=== PATIENT | male | born 1945 | race Caucasian/White ===

== ENCOUNTER 2019-06-16 18:52 | Emergency (ER) | payer MEDICARE, OTHER, SELFPAY ==
[2019-06-16 19:36] VITALS: BP 171/105; PULSE 75; RESP 16; TEMP 36.9; O2SAT 96; BMI 29.8
[2019-06-16 19:57] LABS: Basophils % 0.3 %; Eosinophils # 0.1 10^3/uL (0.0-0.8); Eosinophils % 1.3 %; Hematocrit 41.6 % (42.0-52.0); Hemoglobin 13.5 g/dL (11.7-16.6); Lymphocytes # 1.6 10^3/uL (0.8-4.8); Lymphocytes % 23.9 %; Mean Corpuscular HGB Conc 32.5 g/dL (30.0-36.0); Mean Corpuscular Hemoglobin 28.5 pg (28.0-34.0); Mean Corpuscular Volume 87.9 fL (80-94); Monocytes # 0.7 10^3/uL (0.2-0.9); Monocytes % 10.1 %; Neutrophils # 4.4 10^3/uL (1.8-7.7); Neutrophils % 64.1 %; Nucleated Red Blood Cells % 0 %; Platelet Count 174 10^3/cmm (130-400); Red Blood Count 4.73 10^6/uL (4.1-5.3); Red Cell Distribution Width 12.7 % (12.1-15.1); White Blood Count 6.9 10^3/uL (4.0-10.0)
[2019-06-16 20:16] LABS: Alanine Aminotransferase 12 U/L (0-41); Albumin Level 4.4 g/dL (3.5-5.2); Alkaline Phosphatase 138 IU/L (40-130); Anion Gap 16.2 (5-19); Aspartate Amino Transferase 10 U/L (0-40); Blood Urea Nitrogen 16 mg/dL (8-23); Calcium 9.5 mg/Dl (8.8-10.2); Carbon Dioxide 24 mmol/L (22-29); Chloride 104 mmol/L (98-107); Glucose 107 mg/dL (74-106); Lipase 21 U/L (13-60); Potassium 4.2 mmol/L (3.5-5.1); Sodium 140 mmol/L (136-145); Total Bilirubin 0.4 mg/dL (0.15-1.2); Total Protein 7.4 g/dL (6.6-8.7)
--- NOTE | 2019-06-16 21:01 | CTR_ITS ---
PROCEDURE INFORMATION: Exam: CT Abdomen And Pelvis With Contrast Exam date and time: 06/16/2019 9:11 PM Age: 74 years old Clinical indication: Abdominal pain; Prior surgery; Surgery type: Appy, gb, colon resection; Patient HX: HX bowel obstruction; Additional info: Abd pain TECHNIQUE: Imaging protocol: Computed tomography of the abdomen and pelvis with intravenous contrast. Total DLP: 1258.63 mGy-cm Radiation optimization: All CT scans at this facility use at least one of these dose optimization techniques: automated exposure control; mA and/or kV adjustment per patient size (includes targeted exams where dose is matched to clinical indication); or iterative reconstruction. Contrast material: OMNI 300; Contrast volume: 95 ml; Contrast route: IV; COMPARISON: CT abdomen pelvis w con* [id number] 08/31/2018 9:00 AM FINDINGS: Lungs: Left lower lobe atelectasis versus infiltrate. Liver: Normal. No mass. Gallbladder and bile ducts: Cholecystectomy. Pancreas: Normal. No ductal dilation. Spleen: Normal. No splenomegaly. Adrenals: Normal. No mass. Kidneys and ureters: Left kidney lower pole nonobstructing calyceal stone. Stomach and bowel: Prominent fluid in the small bowel with some wall thickening distally suggestive of inflammatory bowel disease. Appendix: No evidence of appendicitis. Intraperitoneal space: Unremarkable. No free air. No significant fluid collection. Vasculature: Unremarkable. No abdominal aortic aneurysm. Lymph nodes: Unremarkable. No enlarged lymph nodes. Bladder: Unremarkable as visualized. Reproductive: Unremarkable as visualized. Bones/joints: Unremarkable. No acute fracture. Soft tissues: Unremarkable. CT/CT abdomen pelvis w con* [id number] IMPRESSION: 1. Prominent fluid in the small bowel with some wall thickening distally suggestive of inflammatory bowel disease. 2. Left kidney lower pole nonobstructing calyceal stone. 3. Left lower lobe atelectasis versus infiltrate. 4. Cholecystectomy. Radiation Dose CTDIVOL = (mGy): DLP = 1258.63 (mGy-cm)
--- NOTE | 2019-06-16 21:04 | ED_ITS ---
Entered by Sandrine Malagon, acting as scribe for Winsome Martinez MD Jun 16, 2019 18:52 HPI - Abdominal Pain General: Chief Complaint: Abdominal Pain Stated Complaint: abd pain, poss bowel obstruction Time Seen by Provider: 06/16/19 21:01 Source: patient and family Mode of arrival: ambulatory History of Present Illness: HPI narrative: 74 y/o male presents to the ED with complaint of abd pain. Pt states he has a hx of bowel obstruction. His pain and symptoms are similar to past episodes. His most recent sx for an obstruction was last June. Pt states Dr. Mckay has performed his sx in the past. MD elicited complaint: abdominal pain Pertinent past history: other Pain Consistency: constant Exacerbating factors: eating Relieving factors: nothing Associated Symptoms: Reports nausea; Denies chills and fever(s) Review of Systems Const: Denies: fever or chills Eyes: Denies: change in vision ENMT: Denies: throat pain or mouth pain Card: Denies: chest pain Resp: Denies: shortness of breath GI: Reports: abdominal pain and nausea Musc: Denies: back pain or joint pain Skin/Breast: Denies: rash Neuro: Denies: headache or behavioral changes Psych: Denies: depression Endo: Denies: excessive urination Sukhdeep/Lymph: Denies: easy bruising All/Imm: Denies: hives PFSH ED PFSH: Statuses (acute, chronic, etc) shown below reflect problem list status as previously entered and may not be historically accurate Medical History (Updated 06/16/19 @ 22:53 by Winsome Martinez MD) Bowel obstruction (Acute) Social History Smoking and tobacco status: former smoker Physical Exam Const: COMMON NORMALS: no apparent distress, oriented x3 and healthy appearing HENMT: COMMON NORMALS: normocephalic and external nose normal HEAD & SCALP: normocephalic NOSE: external nose normal Eye: COMMON NORMALS: PERRL PUPIL: Yes PERRL Neck/C-Spine: COMMON NORMALS: full ROM and no lymphadenopathy Chest: COMMONS NORMALS: inspection of chest normal Resp: COMMON NORMALS: normal respiratory effort, no use of accessory muscles and clear to auscultation bilaterally AUSCULTATION: clear to auscultation bilaterally Cardio: COMMON NORMALS: regular rate and regular rhythm RATE: regular rate RHYTHM: regular rhythm GI: COMMON NORMALS: normal to inspection, nondistended, normoactive bowel sounds, soft to palpation and non-tender PALPATION: Yes soft Back/Pelvis: THORACIC SPINE/UPPER BACK: Yes normal to inspection Extremity: COMMON NORMALS: normal to inspection, full ROM and normal capillary refill Neuro: COMMON NORMALS: oriented x3 Psych: COMMON NORMALS: mental status grossly normal and cooperative Skin: COMMON NORMALS: no rashes or lesions noted GENERAL SKIN EXAM: no rashes or lesions noted Course Vital Signs: Vital signs: Vital Signs Temperature 98.5 F 06/16/19 21:37 Pulse Rate 67 06/16/19 23:15 Respiratory Rate 20 H 06/16/19 23:15 Blood Pressure 152/79 06/16/19 23:15 Pulse Oximetry 95 06/16/19 23:15 MDM - Abdominal Pain MDM Narrative: Medical decision making narrative: Patient presents here with abdominal pain CT scan shows possible inflammatory bowel disease but no obstruction. Patient is to do a liquid diet and follow-up with surgery in 2 to 4 days. Patient is well-appearing here and has minimal pain at discharge. Will prescribe Zofran and patient is to return if worsening. Lab Data: Labs: Lab Results 06/16/19 06/16/19 Range/Units 19:35 19:35 WBC 6.9 (4.0-10.0) 10^3/ uL RBC 4.73 (4.1-5.3) 10^6/u L Hgb 13.5 (11.7-16.6) g/dL Hct 41.6 L (42.0-52.0) % MCV 87.9 (80-94) fL MCH 28.5 (28.0-34.0) pg MCHC 32.5 (30.0-36.0) g/dL RDW 12.7 (12.1-15.1) % Plt Count 174 (130-400) 10^3/c mm MPV 13.0 H (7.4-10.4) fL Neut % (Auto) 64.1 % Lymph % (Auto) 23.9 % [place] % (Auto) 10.1 % Eos % (Auto) 1.3 % Baso % (Auto) 0.3 % Neut # (Auto) 4.4 (1.8-7.7) 10^3/u L Lymph # (Auto) 1.6 (0.8-4.8) 10^3/u L [place] # (Auto) 0.7 (0.2-0.9) 10^3/u L Eos # (Auto) 0.1 (0.0-0.8) 10^3/u L Baso # (Auto) 0.0 (0.0-0.1) 10^3/u L Nucleated RBC % (a uto) 0 % Nucleated RBCs # 0.0 /100WBC Sodium 140 (136-145) mmol/L Potassium 4.2 (3.5-5.1) mmol/L Chloride 104 (98-107) mmol/L Carbon Dioxide 24 (22-29) mmol/L Anion Gap 16.2 (5-19) BUN 16 (8-23) mg/dL Creatinine 1.1 (0.7-1.2) mg/dL Glucose 107 H (74-106) mg/dL Calcium 9.5 (8.8-10.2) mg/Dl Total Bilirubin 0.4 (0.15-1.2) mg/dL AST 10 (0-40) U/L ALT 12 (0-41) U/L Alkaline Phosphata se 138 H (40-130) IU/L Total Protein 7.4 (6.6-8.7) g/dL Albumin 4.4 (3.5-5.2) g/dL Globulin 3.0 (1.3-4.6) g/dL Lipase 21 (13-60) U/L Imaging Data ^: CT Abd/Pel: Attestation: I personally reviewed and interpreted this imaging study as follows: My impression: cc: Winsome Martinez MD PROCEDURE INFORMATION: Exam: CT Abdomen And Pelvis With Contrast Exam date and time: 06/16/2019 9:11 PM Age: 74 years old Clinical indication: Abdominal pain; Prior surgery; Surgery type: Appy, gb, colon resection; Patient HX: HX bowel obstruction; Additional info: Abd pain TECHNIQUE: Imaging protocol: Computed tomography of the abdomen and pelvis with intravenous contrast. Total DLP: 1258.63 mGy-cm Radiation optimization: All CT scans at this facility use at least one of these dose optimization techniques: automated exposure control; mA and/or kV adjustment per patient size (includes targeted exams where dose is matched to clinical indication); or iterative reconstruction. Contrast material: OMNI 300; Contrast volume: 95 ml; Contrast route: IV; COMPARISON: CT abdomen pelvis w con* [id number] 08/31/2018 9:00 AM FINDINGS: Lungs: Left lower lobe atelectasis versus infiltrate. Liver: Normal. No mass. Gallbladder and bile ducts: Cholecystectomy. Pancreas: Normal. No ductal dilation. Spleen: Normal. No splenomegaly. Adrenals: Normal. No mass. Kidneys and ureters: Left kidney lower pole nonobstructing calyceal stone. Stomach and bowel: Prominent fluid in the small bowel with some wall thickening distally suggestive of inflammatory bowel disease. Appendix: No evidence of appendicitis. Intraperitoneal space: Unremarkable. No free air. No significant fluid collection. Vasculature: Unremarkable. No abdominal aortic aneurysm. Lymph nodes: Unremarkable. No enlarged lymph nodes. Bladder: Unremarkable as visualized. Reproductive: Unremarkable as visualized. Bones/joints: Unremarkable. No acute fracture. Soft tissues: Unremarkable. CT/CT abdomen pelvis w con* [id number] IMPRESSION: 1. Prominent fluid in the small bowel with some wall thickening distally suggestive of inflammatory bowel disease. 2. Left kidney lower pole nonobstructing calyceal stone. 3. Left lower lobe atelectasis versus infiltrate. 4. Cholecystectomy. Discharge Plan Discharge Patient Disposition: Home, Self-Care Clinical Impression: Abdominal pain Qualifiers: Abdominal location: generalized Qualified Code(s): R10.84 - Generalized abdominal pain Condition: Stable Prescriptions: New Zofran 4 mg tablet 4 mg PO QID PRN (Reason: nausea and vomiting) Qty: 14 RF: 0 No Action Plavix 75 mg Tablet 75 mg PO DAILY RF: 0 atorvastatin 20 mg Tablet 20 mg PO DAILY RF: 0 venlafaxine 225 mg Tablet Extended Release 24hr 225 mg PO DAILY RF: 0 metoprolol succinate 100 mg Capsule,Sprinkle,Er 24hr 100 mg PO DAILY RF: 0 carbamazepine 100 mg Capsule, Er Multiphase 12 Hr 100 mg PO DAILY RF: 0 tamsulosin 0.4 mg Capsule 0.4 mg PO DAILY RF: 0 montelukast 10 mg Tablet 10 mg PO DAILY RF: 0 amlodipine 2.5 mg Tablet See Rx Instructions .ROUTE .COMPLEX RF: 0 pantoprazole 40 mg Tablet,Delayed Release (Dr/Ec) 40 mg PO DAILY RF: 0 lisinopril 10 mg Tablet 10 mg PO BID RF: 0 aspirin 81 mg Tablet,Chewable 81 mg PO DAILY RF: 0 Symbicort 160-4.5 mcg/actuation Hfa Aerosol Inhaler 2 puff INHALATION BID RF: 0 Discharge Orders: Discharge Order (Routine); Ordered 06/16/19 Ordered By: Winsome Martinez Referrals: Arthur Mckay MD [Physician] - Ming Parkinson MD [Primary Care Provider] - Discharge Diet: Soft Mechanical Discharge Activity: Resume usual activity Patient Instructions: Abdominal Pain (ED) Discharge Date/Time: 06/16/19 23:09 Coding Level of Care Code ED Plant Propagator for Chg Fwd Exam Problem Focused The documentation recorded by the Manas chaidez Ashley, accurately reflects the service I personally performed and the decisions made by Juan deras Korby, MD Jun 16, 2019 18:52
[2019-06-16 21:37] VITALS: BP 163/85; PULSE 66; RESP 16; TEMP 36.9; O2SAT 94
[2019-06-16] MEDS: ondansetron 2 mg/ML SDV 2 mL 4 MG IVP (21:58)
[2019-06-16] MEDS: iohexol 300 mg/mL 100 mL Btl 95 ML IV (22:11)
[2019-06-16 23:15] VITALS: BP 152/79; PULSE 67; RESP 20; O2SAT 95
--- NOTE | 2019-06-17 10:36 | DCPLANNER ---
manager women had message to schedule a follow up appointment for patient with Dr. Mckay. manager women called patient to ask patient if he would like complex case manager to make a follow up appointment for him. Patient stated not at this time, that he wanted to wait before scheduling the appointment.
== END 2019-06-16 23:09 | disposition home or self-care (01) ==
PROVIDERS: Emergency Provider Emergency Medicine; Family Provider Family Medicine; PCP Family Medicine
DX: R10.84 Generalized abdominal pain (principal); Z79.02 Long term (current) use of antithrombotics/antiplatelets; Z79.82 Long term (current) use of aspirin; Z87.891 Personal history of nicotine dependence
CPT/HCPCS: 36415; 74177; 80053; 83690; 85025; 96374; 96375; 99281; J2405; Q9967

== ENCOUNTER 2019-07-09 11:16 | Outpatient (CLI) | payer MEDICARE, OTHER, SELFPAY ==
--- NOTE | 2019-07-09 | XR_ITS ---
WS: [id number] CHEST 2 VIEWS HISTORY: LUNG NODULE COMPARISON: None available. Lungs: Linear atelectasis at the LEFT lung base. Otherwise lungs are clear. No pneumonia or nodules. Cardiac size: Normal. Mediastinum/Aorta: Normal mediastinum. Bones: Normal. XR/XR chest 2V* [id number] IMPRESSION: Subsegmental atelectasis at the LEFT lung base.
== END 2019-07-09 11:17 | disposition home or self-care (01) ==
LOC: RADOUTREAD 14:32
PROVIDERS: Family Provider Family Medicine; PCP Family Medicine; Visit Provider Nurse Practitioner
DX: J98.11 Atelectasis (principal); R91.1 Solitary pulmonary nodule

== ENCOUNTER 2019-07-13 12:06 | Outpatient (CLI) | payer MEDICARE, OTHER, SELFPAY ==
--- NOTE | 2019-07-13 | US_ITS ---
WS: [id number] DUPLEX CAROTID ULTRASOUND HISTORY: CAROTID STENOSIS, BILATERAL COMPARISON: None available. No significant elevation of the systolic and diastolic velocities within either carotid artery. There is mild scattered plaque and intimal thickening. ICA to CCA ratios are normal. Vertebral arteries ar e antegrade. US/ROR carotid duplex BI IMPRESSION: 1. No significant carotid artery stenosis. 2. Carotid artery stenosis less than 50%. 3. Mild scattered, diffuse atherosclerosis.
== END 2019-07-13 12:07 | disposition home or self-care (01) ==
LOC: RADOUTREAD 07-14 12:15
PROVIDERS: Family Provider Family Medicine; PCP Family Medicine
DX: Z76.89 Persons encountering health services in other specified circumstances (principal)

== ENCOUNTER 2019-07-22 08:00 | Outpatient (CLI) | payer MEDICARE, OTHER, SELFPAY ==
--- NOTE | 2019-07-22 08:29 | XR_ITS ---
WS: [id number] SCREENING DEXA SCAN [employer] CLINICAL INFORMATION: OTHER SPECIFIC DISORDERS OF BONE STRUCTURES FINDINGS: The L1-L4 bone mineral density measures 1.240 g/cm2. This corresponds to a T score score of 0.2 and Z score of 0.2. Left femoral neck bone mineral density measures 0.886 g/cm2. This corresponds to a T score of -1.5 an d Z score of -1.0. Right femoral neck bone mineral density measures 0.888 g/cm2. This corresponds to a T score -1.5of an d Z score of -1.0. Mean femoral neck bone mineral density measures 0.887 g/cm2. This corresponds to a T score of -1.5 an d Z score of -1.0. XR/XR DEXA axial skeleton* [id number] IMPRESSION: Osteopenia. Patient's FRAX calculated 10 year probability for major osteoporotic fracture i s 16.4 % and osteoporotic hip fracture is 6.1%.
== END 2019-07-22 08:01 | disposition home or self-care (01) ==
LOC: RADWPI 08:05
PROVIDERS: Family Provider Family Medicine; PCP Nurse Practitioner; Visit Provider Nurse Practitioner
DX: M85.89 Other specified disorders of bone density and structure, multiple sites (principal)
CPT/HCPCS: 77080

== ENCOUNTER → 2020-01-23 11:38 | Outpatient (BNVA) | payer MEDICARE, OTHER, SELFPAY | PROVIDERS: Family Provider Family Medicine; PCP Nurse Practitioner; Visit Provider Nurse Practitioner | DX: R35.0 Frequency of micturition (principal) | CPT/HCPCS: 81000; 87086 ==

== ENCOUNTER → 2020-02-21 12:02 | Outpatient (BNVA) | payer MEDICARE, OTHER, SELFPAY | PROVIDERS: Family Provider Family Medicine; PCP Nurse Practitioner; Visit Provider Nurse Practitioner | DX: R35.0 Frequency of micturition (principal) | CPT/HCPCS: 81000 ==

== ENCOUNTER → 2020-04-27 14:27 | Outpatient (BNVA) | payer MEDICARE, OTHER, SELFPAY | PROVIDERS: Family Provider Family Medicine; PCP Nurse Practitioner; Referring Provider Family Medicine; Visit Provider Nurse Practitioner Family | DX: N39.0 Urinary tract infection, site not specified (principal) | CPT/HCPCS: 81003; 87086 ==

== ENCOUNTER → 2020-05-11 10:53 | Outpatient (BNVA) | payer MEDICARE, OTHER, SELFPAY | PROVIDERS: Family Provider Family Medicine; PCP Nurse Practitioner; Visit Provider Nurse Practitioner | DX: Z20.828 Contact with and (suspected) exposure to other viral communicable diseases (principal); B34.9 Viral infection, unspecified | CPT/HCPCS: 87635 ==

== ENCOUNTER → 2020-06-20 09:28 | Outpatient (BNVA) | payer MEDICARE, OTHER, SELFPAY | PROVIDERS: Family Provider Family Medicine; PCP Nurse Practitioner; Visit Provider Urology | DX: N39.0 Urinary tract infection, site not specified (principal); N40.1 Benign prostatic hyperplasia with lower urinary tract symptoms | CPT/HCPCS: 81003 ==

== ENCOUNTER 2020-08-04 08:21 | Inpatient (IN) | payer MEDICARE, OTHER, SELFPAY ==
[2020-08-04] VITALS (11 sets, daily range): BP systolic 118–159; BP diastolic 68–78; PULSE 67–82; RESP 15–25; TEMP 36.4–37; O2SAT 92–98; BMI 30.9
--- NOTE | 2020-08-04 08:29 | ECG_ITS ---
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 Measurements Intervals [place] Rate: 66 P: 26 NC: 142 QRS: 76 QRSD: 105 T: 66 QT: 420 QTc: 441 Interpretive Statements SINUS RHYTHM Compared to ECG 12/17/2018 09:43:12 Intraventricular conduction delay no longer present Electronically Signed On 08-05-2020 11:14:30 PREVENTIVE MEDICINE OFFICER by Adrianna Jimenez M.D. [email or web address] [email or web address] Century Digital [email or web address] [id number]
[2020-08-04 09:07] LABS: Basophils % 0.3 %; Eosinophils # 0.1 10^3/uL (0.0-0.8); Eosinophils % 1.8 %; Hemoglobin 14.4 g/dL (11.7-16.6); Lymphocytes % 13.5 %; Mean Corpuscular HGB Conc 32.7 g/dL (30.0-36.0); Mean Corpuscular Hemoglobin 29.2 pg (28.0-34.0); Mean Corpuscular Volume 89.2 fL (80-94); Mean Platelet Volume 12.9 fL (7.4-10.4); Monocytes # 0.6 10^3/uL (0.2-0.9); Monocytes % 8.2 %; Neutrophils # 5.36 10^3/uL (1.8-7.7); Neutrophils % 76.1 %; Nucleated Red Blood Cells % 0 %; Platelet Count 186 10^3/cmm (130-400); Red Blood Count 4.93 10^6/uL (4.1-5.3); Red Cell Distribution Width 13.2 % (12.1-15.1); White Blood Count 7.1 10^3/uL (4.0-10.0)
--- NOTE | 2020-08-04 09:11 | CT_ITS ---
WS: [id number] CT ABDOMEN PELVIS TECHNIQUE: Contrast-enhanced CT of the abdomen and pelvis with coronal and sagittal reformatted image s. CLINICAL INFORMATION: abd pain COMPARISON: CT June 16, 2019 DLP: 888.[address] scans at [facility] use at least one of these dose optimization techniques: automat ed exposure control; mA and/or kV adjustment per patient size (includes targeted exams where dose is matched to clinical indication); or iterative reconstruction. FINDINGS: Again seen is fluid distended small bowel with air-fluid levels in the midabdomen. This is similar in appearance the prior examination. Mild wall thickening with mucosal enhancement involving the distal ileal bowel loops. In addition, there is new fluid distention of the colon also with submucosal enha ncement some areas. Diffuse pancolonic fluid distention extending to the sigmoid colon. No focal obst ructing transition points visualized. Prior cholecystectomy. Mild diffuse fatty infiltration liver. Normal portal vein and splenic vein. No rmal GE junction. Adrenal glands are normal. Normal renal parenchymal enhancement. Normal spleen. Nor mal pancreas. Slight atelectasis left lower lobe. Normal caliber abdominal aorta. Mild aortic calcifi cation. CT/CT abdomen pelvis w con* [id number] IMPRESSION: 1. Fluid distended loops of small bowel in the midabdomen with mucosal enhance ment and thickening involving the distal ileal loops. In addition there is new fluid distended colon extending to the sigmoid with air-fluid levels also with mucosal enhancement in some areas. 2. Above findings compatible with enterocolitis likely infectious or inflammat ory in etiology. Also correlate with history of Inflammatory bowel disease. 3. No focal obstructing transition points. 4. Mild diffuse fatty infiltration liver. 5. Cholecystectomy clips. 6. No free fluid in the abdomen or pelvis. Notified Bayron Tucker DO at 08/04/2020 10:14 AM.
[2020-08-04 09:22] LABS: Alanine Aminotransferase 168 U/L (0-41); Albumin Level 4.4 g/dL (3.5-5.2); Alkaline Phosphatase 154 IU/L (40-130); Anion Gap 13.8 (5-19); Aspartate Amino Transferase 170 U/L (0-40); Blood Urea Nitrogen 20 mg/dL (8-23); Calcium 8.8 mg/dL (8.5-10.5); Carbon Dioxide 27 mmol/L (22-29); Chloride 102 mmol/L (98-107); Globulin 2.6 g/dL (1.3-4.6); Glucose 164 mg/dL (65-115); Osmolality Calculated 294 mOsm/kg (285-295); Potassium 3.8 mmol/L (3.5-5.1); Sodium 139 mmol/L (136-145); Total Bilirubin 1.4 mg/dL (0.15-1.2)
[2020-08-04 09:39] LABS: Troponin(5th) Baseline 12 ng/L (0-15)
[2020-08-04] MEDS: iohexol 300 mg/mL 100 mL Btl IV (09:50)
--- NOTE | 2020-08-04 10:06 | ED_ITS ---
HPI - Nausea/Vomiting/Diarrhea General: Chief complaint: Nausea/Vomiting/Diarrhea Stated complaint: bloating, N/D, dizzy Time Seen by Provider: 08/04/20 08:23 History of Present Illness: HPI Narrative: 75-year-old male presents emergency room with complaints of abdominal pain nausea and diarrhea. Along with bloating. He has had multiple abdominal surgeries and has had bowel obstructions in the past states he feels like he is getting another episode today. He denies any fever. No dysuria urgency or frequency no chest pain or difficulty breathing. MD elicited complaint: nausea, diarrhea and abdominal pain Pertinent past history: abdominal surgery and other (Recurrent bowel obstructions) Onset (ago): day(s) (4) Description of diarrhea: watery Associated nausea: Yes Associated abdominal pain: Yes Location of pain: Diffuse Pain consistency: constant Severity: moderate Quality: cramping Exacerbating factors: eating and movement Relieving factors: rest Associated symtoms: Reports bloating, fatigue, anorexia, malaise and nausea; Denies altered mental status, anxiety, change in vision, chest pain, cough, diaphoresis, decreased urine output, dizziness, dysuria, epistaxis, fecal incontinence, fevers/chills, headache(s), myalgias, numbness, palpitations, short of breath, syncope, tenesmus, tinnitus or weakness Treatment prior to arrival: none Review of Systems Const: Reports: fatigue and malaise; Denies: diaphoresis Eyes: Denies: change in vision ENMT: Denies: tinnitus or epistaxis Card: Denies: chest pain, palpitations or syncope Resp: Denies: dyspnea, productive cough or non-productive cough GI: Reports: nausea and bloating; Denies: fecal incontinence : Denies: dysuria Skin/Breast: Denies: rash or pruritus Neuro: Denies: headache(s) Psych: Denies: anxiety PFSH ED PFSH: Medical History (Updated 08/05/20 @ 07:26 by Bayron Tucker DO) Acid reflux Bipolar 1 disorder Bowel obstruction BPH loc w urin obs/LUTS History of facial trauma History of transient ischemic attack (TIA) HTN (hypertension) Hypercholesteremia Recurrent UTI TMJ arthralgia Surgical History History of appendectomy History of cholecystectomy History of facial fracture repair History of neck surgery History of repair of rotator cuff History of sinus surgery Family History Other CAD (coronary artery disease) Dementia Hyperlipidemia Hypertension Denies family history of Diabetes Clotting disorder Psychiatric illness Chronic kidney disease (CKD) Suicide Anesthesia complication Bleeding disorder Family history of premature coronary artery disease Lung disease Cancer Stroke Social History Smoking and tobacco status: former smoker Alcohol intake: current Alcohol intake frequency: holidays/special occasions only Substance/Drug Use: never Lives independently: Yes Household members: spouse Marital status: Current occupational status: employed 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 Physical Exam Const: COMMON NORMALS: no acute distress EXAM LIMITATIONS: no altered mental status GENERAL APPEARANCE: cooperative and comfortable ORIENTATION/CONSCIOUSNESS: Yes awake, Yes oriented to person, Yes oriented to place and Yes oriented to time HENMT: COMMON NORMALS: normocephalic, atraumatic and hearing grossly normal bilaterally HEAD & SCALP: normocephalic and atraumatic Neck/C-Spine: COMMON NORMALS: no JVD Resp: COMMON NORMALS: normal respiratory effort, No retractions, No use of accessory muscles and clear to auscultation bilaterally AUSCULTATION: clear to auscultation bilaterally Cardio: COMMON NORMALS: no JVD, regular rate, regular rhythm and No murmurs present (Cardio) RATE: regular rate RHYTHM: regular rhythm GI: COMMON NORMALS: Soft to palpation and No hepatosplenomegaly present AUSCULTATION: Yes normoactive bowel sounds PALPATION: Yes Soft to palpation, No Tenderness to palpation present (GI), No Guarding due to palpation present (GI) and Yes No hepatosplenomegaly present Extremity: COMMON NORMALS: normal to inspection, capillary refill normal, no clubbing, cyanosis or edema, no calf tenderness and no pedal edema Neuro: SENSORIUM/ORIENTATION: Yes oriented to person, Yes oriented to place and Yes oriented to time Skin: COMMON NORMALS: no rashes or lesions noted GENERAL SKIN EXAM: no rashes or lesions noted Course Vital Signs: Vital signs: Vital Signs Temperature 97.9 F 08/05/20 04:00 Pulse Rate 68 08/05/20 04:00 Respiratory Rate 20 H 08/05/20 04:00 Blood Pressure 136/75 08/05/20 04:00 Pulse Oximetry 95 08/05/20 04:00 MDM - Nausea/Vomiting/Diarrhea MDM Narrative: Medical decision making narrative: Patient has not obstruction but there is pancolitis. Will start on Cipro and Flagyl admit P n.p.o. IV fluid support discussed Dr. Gurrola. Orders are written. Lab Data: Labs: Lab Results 08/04/20 08/04/20 08/04/20 Range/Units 08:35 08:35 08:35 WBC 7.1 (4.0-10.0) 10^3/ uL RBC 4.93 (4.1-5.3) 10^6/u L Hgb 14.4 (11.7-16.6) g/dL Hct 44.0 (42.0-52.0) % MCV 89.2 (80-94) fL MCH 29.2 (28.0-34.0) pg MCHC 32.7 (30.0-36.0) g/dL RDW 13.2 (12.1-15.1) % Plt Count 186 (130-400) 10^3/c mm MPV 12.9 H (7.4-10.4) fL Neut % (Auto) 76.1 % Lymph % (Auto) 13.5 % [place] % (Auto) 8.2 % Eos % (Auto) 1.8 % Baso % (Auto) 0.3 % Neut # (Auto) 5.36 (1.8-7.7) 10^3/u L Lymph # (Auto) 1.0 (0.8-4.8) 10^3/u L [place] # (Auto) 0.6 (0.2-0.9) 10^3/u L Eos # (Auto) 0.1 (0.0-0.8) 10^3/u L Baso # (Auto) 0.0 (0.0-0.1) 10^3/u L Nucleated RBC % (a uto) 0 % Nucleated RBCs # 0.0 /100WBC Sodium 139 (136-145) mmol/L Potassium 3.8 (3.5-5.1) mmol/L Chloride 102 (98-107) mmol/L Carbon Dioxide 27 (22-29) mmol/L Anion Gap 13.8 (5-19) BUN 20 (8-23) mg/dL Creatinine 1.1 (0.7-1.2) mg/dL GFR Calculation Not Reportable Glucose 164 H (65-115) mg/dL Calculated Osmolal ity 294 (285-295) mOsm/k g Calcium 8.8 (8.5-10.5) mg/dL Total Bilirubin 1.4 H (0.15-1.2) mg/dL AST 170 H (0-40) U/L ALT 168 H (0-41) U/L Alkaline Phosphata se 154 H (40-130) IU/L Troponin T Baselin e Cancelled Troponin T 120 Min [place] (0-15) ng/L Delta Troponin T (0-10) ABS# Total Protein 7.0 (6.6-8.7) g/dL Albumin 4.4 (3.5-5.2) g/dL Globulin 2.6 (1.3-4.6) g/dL Urine Color (Yellow) Urine Appearance (CLEAR) Urine pH (5-7) Ur Specific Gravit y (1.005-1.030) Urine Protein (Negative) Urine Glucose (UA) (Normal) Urine Ketones (Negative) Urine Blood (Negative) Urine Nitrate (Negative) Urine Bilirubin (Negative) Prot Sulfosalicyli c Acd (Negative) Urine Urobilinogen (Negative) mg/dL Ur Leukocyte Emily ase (Negative) Urine RBC (0-2) /hpf Urine WBC (0-5) /hpf Ur Squamous Epith Cells (0-5) /hpf Amorphous Sediment Urine Bacteria (NONE) /hpf Urine Mucus /hpf 08/04/20 08/04/20 08/04/20 Range/Units 09:18 10:05 10:53 WBC (4.0-10.0) 10^3/ uL RBC (4.1-5.3) 10^6/u L Hgb (11.7-16.6) g/dL Hct (42.0-52.0) % MCV (80-94) fL MCH (28.0-34.0) pg MCHC (30.0-36.0) g/dL RDW (12.1-15.1) % Plt Count (130-400) 10^3/c mm MPV (7.4-10.4) fL Neut % (Auto) % Lymph % (Auto) % [place] % (Auto) % Eos % (Auto) % Baso % (Auto) % Neut # (Auto) (1.8-7.7) 10^3/u L Lymph # (Auto) (0.8-4.8) 10^3/u L [place] # (Auto) (0.2-0.9) 10^3/u L Eos # (Auto) (0.0-0.8) 10^3/u L Baso # (Auto) (0.0-0.1) 10^3/u L Nucleated RBC % (a uto) % Nucleated RBCs # /100WBC Sodium (136-145) mmol/L Potassium (3.5-5.1) mmol/L Chloride (98-107) mmol/L Carbon Dioxide (22-29) mmol/L Anion Gap (5-19) BUN (8-23) mg/dL Creatinine (0.7-1.2) mg/dL GFR Calculation Glucose (65-115) mg/dL Calculated Osmolal ity (285-295) mOsm/k g Calcium (8.5-10.5) mg/dL Total Bilirubin (0.15-1.2) mg/dL AST (0-40) U/L ALT (0-41) U/L Alkaline Phosphata se (40-130) IU/L Troponin T Baselin e 12 Troponin T 120 Min [place] 11.61 (0-15) ng/L Delta Troponin T -0.39 L (0-10) ABS# Total Protein (6.6-8.7) g/dL Albumin (3.5-5.2) g/dL Globulin (1.3-4.6) g/dL Urine Color Dark yellow (Yellow) Urine Appearance Clear (CLEAR) Urine pH 5 (5-7) Ur Specific Gravit y 1.020 (1.005-1.030) Urine Protein 2+ H (Negative) Urine Glucose (UA) Norm (Normal) Urine Ketones Negative (Negative) Urine Blood Neg (Negative) Urine Nitrate Positive H (Negative) Urine Bilirubin Neg (Negative) Prot Sulfosalicyli c Acd Negative (Negative) Urine Urobilinogen Norm (Negative) mg/dL Ur Leukocyte Emily ase Trace H (Negative) Urine RBC None (0-2) /hpf Urine WBC 0-4 H (0-5) /hpf Ur Squamous Epith Cells 5-10 H (0-5) /hpf Amorphous Sediment Not Reportable Urine Bacteria 1+ H (NONE) /hpf Urine Mucus 1+ /hpf Discharge Plan Discharge Patient Disposition: Admitted As Inpatient Admit Provider: Nicholas Gurrola Clinical Impression: Colitis Condition: Stable Coding Level of Care Code ED Hebrew Cantor for Chg Fwd Exam Comprehensive
--- NOTE | 2020-08-04 10:29 | ECG_ITS ---
[facility] Test Date: 2020-08-04 Pat Name: Mario Simon Department: Room: Gender: Male Director [employer]: : 1945 Requested By: Bayron rIene Order Number: [id number] Ana MD: Adrianna Jimenez M.D. Measurements Intervals [place] Rate: 65 P: 52 AR: 161 QRS: 19 QRSD: 101 T: 30 QT: 360 QTc: 376 Interpretive Statements SINUS RHYTHM NONSPECIFIC T-WAVE ABNORMALITY Compared to ECG 08/04/2020 08:37:47 T-wave abnormality now present Electronically Signed On 08-05-2020 11:32:02 RADIATION OFFICER by Adrianna Jimenez M.D. [email or web address] adult [email or web address] Organized Through [facility]green cross [id number]
[2020-08-04] MEDS: metroNIDAZOLE IV 500 MG/100 ML PREMIX 100 MG IV ×2 (10:32→20:45)
[2020-08-04 10:49] LABS: Blood Urine Neg (Negative); Ketones Urine Negative (Negative); Nitrate Urine Positive (Negative); Urine Appearance Clear (CLEAR)
[2020-08-04 10:50] LABS: Add Urine Microscopic? YES; Bilirubin Urine Neg (Negative); Sulfosalicylic Acid Urine Negative (Negative); Urobilinogen Urine Norm (Negative); WBC Urine 0-4 /hpf (0-5)
[2020-08-04 10:51] LABS: Add Urine Culture? No; Bacteria Urine 1+ /hpf; Mucus Urine 1+ /hpf
[2020-08-04 11:13] LABS: pH Urine 5 (5-7)
[2020-08-04 11:14] LABS: Leukocyte Esterase Urine Trace (Negative); Protein Urine 2+ (Negative)
[2020-08-04 11:15] LABS: Glucose Urine UA Norm (Normal)
[2020-08-04 11:17] LABS: Urine Color Dark Yellow (Yellow)
[2020-08-04 11:21] LABS: Troponin 5 2HR 11.61 ng/L (0-15)
[2020-08-04 11:24] LABS: Troponin 5 2HR Delta -0.39 ABS# (0-10)
--- NOTE | 2020-08-04 12:22 | PC.PHAR ---
PT STATES HE TAKES CARE OF HIS OWN MEDICATIONS-PT STATES HIS PLAVIX WAS DCED -PT STATES HE IS STILL TAKING THE HCTZ-PT STATES HE WAS SUPPOSE TO STOP TAKING THE HCTZ AND START THE CHLORTHALDONE BUT STATES HE HASNT STARTED IT YET HE STATES HE WAS GOING TO FINISH HIS HCTZ FIRST-PT STATES HE ONLY TAKES HIS CARBAMAZEPINE ONCE A DAY BUT IT WAS FILLED FOR BID ON 07/05/20-PT STATES HE ONLY TAKES HIS LISINOPRIL ONCE A DAY BUT IT WAS FILLED FOR BID ON 06/05/20 90D/SPT STATES HE ONLY USES HIS SYMBICORT PRN BECAUSE ITS TO EXPENSIVE
--- NOTE | 2020-08-04 13:09 | PC.NURSE ---
patient admitted from ER, introduced to surroundings, placed call light in reach, denies pain or needs at this time.
--- NOTE | 2020-08-04 13:32 | P.HP_ITS ---
Providers/Chief Complaint Admitting Physician: Nicholas Gurrola MD Primary Care Provider: OMA Hammond Chief Complaint: Dizzy/obstruction? History of Present Illness Mario Simon is a 75 year old male with a past medical history of hypertension, hyperlipidemia, GERD, recurrent UTIs, history of 6 bowel obstructions, 2 requiring surgeries, last bowel obstruction over 3 years ago, who presents to [facility] due to complaints of lower abdominal pain, watery stools, nausea. Patient tells me that he knows when he has symptoms of a bowel obstruction, he has had 6 in the past, 2 requiring surgeries, last bowel obstruction over 3 years ago, typically will get abdominal pain, abdominal bloating, watery stools, nausea. He tells me that his last solid bowel movement was on Friday, he had a watery bowel movement this morning, has abdominal pain which is quite diffuse, but now more in the lower abdomen, with nausea, no vomiting, is able to keep down solids and liquids. No fevers, no chills, no known exposure to COVID-19. Drinks bottled water. He does report antibiotic use recently for recurrent UTIs. No fevers, no chills, no recent travel, no history of ulcerative colitis, no history of Crohn's disease, no personal or family history of colon cancer Review of Systems Const: Denies: fever(s), chills, fatigue or malaise Eyes: Denies: change in vision or blurry vision ENMT: Denies: nasal congestion Card: Denies: chest pain Resp: Denies: dyspnea, productive cough, non-productive cough or wheezing GI: Reports: abdominal pain and diarrhea; Denies: nausea, vomiting, hematemesis, constipation, hematochezia or melena : Denies: flank pain, difficulty urinating, dysuria or urinary frequency Musc: Denies: neck pain or back pain Skin/Breast: Denies: rash Neuro: Denies: headache(s), dizziness or vertigo Psych: Denies: anxiety or depression Endo: Denies: polyuria or polydipsia Medications/Allergies Home Medications Medication Instructions Recorded Confirmed Last Taken Type aspirin 81 mg PO DAILY@06/16/19 08/04/20 08/03/20 History atorvastatin 20 mg PO DAILY@06/16/19 08/04/20 08/03/20 History budesonide-formoterol [Symbicort] 2 puff INHALATION BID 06/16/19 08/04/20 06/16/19 History metoprolol succinate 100 mg PO DAILY@18 06/16/19 08/04/20 08/03/20 History pantoprazole 40 mg PO DAILY@18 06/16/19 08/04/20 08/03/20 History tamsulosin 0.4 mg PO DAILY@06/16/19 08/04/20 08/03/20 History cholecalciferol (vitamin D3) 125 125 mcg PO DAILY@18 04/27/20 08/04/20 08/03/20 History mcg (5,000 unit) capsule lisinopril 10 mg tablet See Rx Instructions .ROUTE 04/27/20 08/04/20 08/03/20 History .COMPLEX tab zinc acetate 50 mg (zinc) capsule 50 mg PO DAILY@18 04/27/20 08/04/20 08/03/20 History albuterol sulfate [ProAir HFA] 2 puff INHALATION Q4H PRN 08/04/20 08/04/20 Unknown History amlodipine 10 mg PO DAILY@18 08/04/20 08/04/20 08/03/20 History ascorbic acid (vitamin C) [Vitamin 1,000 mg PO DAILY@18 08/04/20 08/04/20 08/03/20 History C] carbamazepine See Rx Instructions .ROUTE .COMPLEX 08/04/20 08/04/20 08/03/20 History chlorthalidone 25 mg PO DAILY 08/04/20 08/04/20 Unknown History hydrochlorothiazide 25 mg PO DAILY@18 08/04/20 08/04/20 08/03/20 History venlafaxine 75 mg PO DAILY@18 08/04/20 08/04/20 08/03/20 History venlafaxine 150 mg PO DAILY@18 08/04/20 08/04/20 08/03/20 History Allergies Allergy/AdvReac Type Severity Reaction Status Date / Time codeine Allergy Unconscious Verified 08/04/20 12:22 Sulfa (Sulfonamide Allergy ALGY-Rash Verified 08/04/20 12:22 Antibiotics) PFSH Acute PFSH: Medical History Acid reflux Bipolar 1 disorder Bowel obstruction BPH loc w urin obs/LUTS History of facial trauma History of transient ischemic attack (TIA) HTN (hypertension) Hypercholesteremia Recurrent UTI TMJ arthralgia Surgical History History of appendectomy History of cholecystectomy History of facial fracture repair History of neck surgery History of repair of rotator cuff History of sinus surgery Family History Other CAD (coronary artery disease) Dementia Hyperlipidemia Hypertension Denies family history of Diabetes Clotting disorder Psychiatric illness Chronic kidney disease (CKD) Suicide Anesthesia complication Bleeding disorder Family history of premature coronary artery disease Lung disease Cancer Stroke Social History Smoking and tobacco status: former smoker Alcohol intake: current Alcohol intake frequency: holidays/special occasions only Substance/Drug Use: never Lives independently: Yes Household members: spouse Marital status: Current occupational status: employed 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 Vitals/I&O/Wt Last Vital Signs Temp 98.3 F 08/04/20 13:24 Pulse 71 08/04/20 13:24 Resp 17 08/04/20 13:24 BP 135/70 08/04/20 13:24 Pulse Ox 92 08/04/20 13:24 08/03/20 08/04/20 08/04/20 22:59 06:59 14:59 Intake Total 100 / 100 Balance 100 / 100 Weight last 48 hrs Weight 99.337 kg Physical Exam Const: COMMON NORMALS: no acute distress and patient oriented x3 GENERAL APPEARANCE: cooperative and comfortable HENMT: COMMON NORMALS: normocephalic HEAD & SCALP: normocephalic Eye: COMMON NORMALS: Equal, round and reactive pupils present and EOMs intact bilaterally GENERAL EYE: appearance normal, both eyes and all related structures PUPIL: Yes Equal, round and reactive pupils present Neck/C-Spine: COMMON NORMALS: full ROM, no lymphadenopathy, no JVD and Thyroid normal THYROID: Thyroid normal Lymph: LYMPHATIC: no lymphadenopathy noted Resp: COMMON NORMALS: normal respiratory effort, No retractions, No use of accessory muscles and clear to auscultation bilaterally AUSCULTATION: clear to auscultation bilaterally Cardio: COMMON NORMALS: no JVD, regular rate, regular rhythm, S1 normal heart sound present, S2 normal heart sound present, No gallops present (Cardio), No clicks present (Cardio) and No murmurs present (Cardio) RATE: regular rate RHYTHM: regular rhythm HEART SOUNDS: S1 normal heart sound present and S2 normal heart sound present GI: COMMON NORMALS: Normal to inspection, nondistended, normoactive bowel sounds present, Soft to palpation, non-tender and No hepatosplenomegaly present PALPATION: Yes Soft to palpation, No Firmness to palpation present (GI), Yes Tenderness to palpation present (GI) Details: other (Lower abdominal pain, right lower and left lower quadrant), No Guarding due to palpation present (GI), No Rigid due to palpation and Yes No hepatosplenomegaly present Extremity: COMMON NORMALS: normal to inspection, full ROM and no pedal edema Neuro: COMMON NORMALS: patient oriented x3, CN's II-XII intact bilaterally, moves all extremities and no focal motor deficits Psych: COMMON NORMALS: mental status grossly normal, Normal thought process present and cooperative THOUGHT PROCESS: Normal thought process present Data : 08/04/20 08:35 08/04/20 08:35 A&P Assessment and plan (1) Pancolitis: -CT scan shows: 1.Fluid distended loops of small bowel in the midabdomen with mucosal enhancement and thickening involving the distal ileal loops. In addition there is new fluid distended colon extending to the sigmoid with air-fluid levels also with mucosal enhancement in some areas. 2. Above findings compatible with enterocolitis likely infectious or inflammatory in etiology. Also correlate with history of Inflammatory bowel dis ease. -No significant leukocytosis, afebrile, normotensive -No transition point, bowel obstruction seen on CT scan -No nausea, no vomiting, no need for NG tube placement at this point -Having liquidy bowel movements Plan: -Clear liquid diet -Continue IV fluids -Continue Cipro and Flagyl for infectious colitis -C. difficile ordered, collect stool sample given recent antibiotic use -Serial abdominal exams, monitor for bowel movements -Full code -Lovenox for DVT prophylaxis Status: Acute (2) Onychocryptosis: Status: Acute (3) Hypercholesteremia: Status: Acute (4) HTN (hypertension): Status: Acute (5) Recurrent UTI: Status: Acute Attestations Medical Necessity Statement*: Patient requires hospitalization, outpatient with observation, for pancolitis Coding Level of Care Code Acute Sales And Service Change Leader for [facility] Fwd Diagnoses Pancolitis K51.00 Onychocryptosis L60.0 Hypercholesteremia E78.00 HTN (hypertension) I10 Recurrent UTI N39.0
[2020-08-04] MEDS: ciprofloxacin 400 MG/200 ML PREMIX 200 MG IV (13:47)
[2020-08-04] MEDS: D5-NS 0.45% + KCL 20 mEq 20 MEQ/1,000 ML BAG 125 MEQ IV ×2 (13:47→22:13)
[2020-08-04] MEDS: enoxaparin 40 mg/0.4 mL Syringe SUBCUT (13:48)
--- NOTE | 2020-08-04 14:29 | ECG_ITS ---
[facility] Test Date: 2020-08-04 Pat Name: Mario Simon Department: Room: 254 Gender: Male Ring Con[employer]: : 1945 Requested By: Bayron Irene Order Number: [id number] Ana MD: Adrianna Jimenez M.D. Measurements Intervals [place] Rate: 67 P: 48 [place]: 162 QRS: 17 QRSD: 105 T: 29 QT: 388 QTc: 410 Interpretive Statements SINUS RHYTHM NONSPECIFIC T-WAVE ABNORMALITY Compared to ECG 08/04/2020 10:26:09 No significant changes Electronically Signed On 08-05-2020 11:30:08 DRUG ABUSE RESISTANCE EDUCATION OFFICER by Adrianna Jimenez M.D. [id number]
[2020-08-04 16:26] LABS: Troponin 5 6HR 11.47 ng/L (0-15)
[2020-08-04 16:34] LABS: Troponin 5 6HR Delta -0.53 ng/L (0-12)
[2020-08-04] MEDS: venlafaxine ER (24HR) 75 mg Capsule PO (17:09)
[2020-08-04] MEDS: amlodipine 10 mg Tablet PO (17:09)
[2020-08-04] MEDS: tamsulosin 0.4 mg Capsule PO (17:09)
[2020-08-04] MEDS: lisinopril 20 mg Tablet PO (17:10)
[2020-08-04] MEDS: ascorbic acid 500 mg Tablet 1000 MG PO (17:10)
[2020-08-04] MEDS: atorvastatin 40 mg Tablet 20 MG PO (17:10)
[2020-08-04] MEDS: aspirin 81 mg Chew Tablet PO (17:10)
[2020-08-04] MEDS: metoprolol succinate ER (24 HR) 100 mg Tablet PO (17:10)
[2020-08-04] MEDS: pantoprazole DR 40 mg Tablet PO (17:10)
[2020-08-04] MEDS: venlafaxine ER (24HR) 150 mg Capsule PO (17:10)
[2020-08-04] MEDS: cholecalciferol (vitamin D3) 5,000 unit Tablet 5000 UNIT PO (17:15)
[2020-08-04] MEDS: acetaminophen 325 mg Tablet 650 MG PO (20:45)
[2020-08-05] VITALS (11 sets, daily range): BP systolic 111–178; BP diastolic 67–81; PULSE 66–80; RESP 14–20; TEMP 36.4–37; O2SAT 93–98
[2020-08-05] MEDS: ciprofloxacin 400 MG/200 ML PREMIX 200 MG IV ×2 (01:24→14:17)
[2020-08-05] MEDS: metroNIDAZOLE IV 500 MG/100 ML PREMIX 100 MG IV ×3 (04:12→22:18)
[2020-08-05 07:30] LABS: Basophils % 0.4 %; Eosinophils # 0.1 10^3/uL (0.0-0.8); Eosinophils % 2.6 %; Hematocrit 39.7 % (42.0-52.0); Hemoglobin 13.1 g/dL (11.7-16.6); Lymphocytes # 1.1 10^3/uL (0.8-4.8); Mean Corpuscular Hemoglobin 29.4 pg (28.0-34.0); Mean Corpuscular Volume 89.2 fL (80-94); Mean Platelet Volume 13.2 fL (7.4-10.4); Monocytes # 0.6 10^3/uL (0.2-0.9); Monocytes % 11.1 %; Neutrophils # 3.55 10^3/uL (1.8-7.7); Neutrophils % 65.7 %; Nucleated Red Blood Cells % 0 %; Platelet Count 147 10^3/cmm (130-400); Red Blood Count 4.45 10^6/uL (4.1-5.3); White Blood Count 5.4 10^3/uL (4.0-10.0)
[2020-08-05 07:55] LABS: Procalcitonin 0.13 ng/mL (0-0.5)
[2020-08-05 08:06] LABS: Alanine Aminotransferase 96 U/L (0-41); Albumin Level 3.9 g/dL (3.5-5.2); Alkaline Phosphatase 126 IU/L (40-130); Anion Gap 13.4 (5-19); Aspartate Amino Transferase 44 U/L (0-40); Blood Urea Nitrogen 14 mg/dL (8-23); C Reactive Protein 16.7 mg/L (0.0-4.9); Calcium 8.3 mg/dL (8.5-10.5); Carbon Dioxide 26 mmol/L (22-29); Chloride 103 mmol/L (98-107); Globulin 2.5 g/dL (1.3-4.6); Glucose 132 mg/dL (65-115); Magnesium 1.7 mg/dL (1.7-2.3); Osmolality Calculated 290 mOsm/kg (285-295); Potassium 3.4 mmol/L (3.5-5.1); Sodium 139 mmol/L (136-145); Total Bilirubin 0.7 mg/dL (0.15-1.2); Total Protein 6.4 g/dL (6.6-8.7)
[2020-08-05] MEDS: D5-NS 0.45% + KCL 20 mEq 20 MEQ/1,000 ML BAG 125 MEQ IV (08:13)
[2020-08-05] MEDS: carBAMazepine 200 mg Tablet 100 MG PO (08:14)
[2020-08-05] MEDS: lisinopril 20 mg Tablet PO ×2 (08:14→17:10)
[2020-08-05 08:32] LABS: Slide Review Slide Review Perform
[2020-08-05] MEDS: chlorthalidone 25 mg Tablet PO (08:55)
[2020-08-05] MEDS: docusate sodium 100 mg Capsule PO ×2 (12:13→17:12)
[2020-08-05] MEDS: polyethylene glycol 3350 Pkt 17 gm PO (12:14)
--- NOTE | 2020-08-05 13:20 | PC.CHAP ---
Pastoral Care Encounter/Spiritual Assessment Type of Contact [] Declined hyster machine operator visit [] Patient/Family/Request visit [] Outpatient visit [] Follow-up visit [] Physician referral [] Code/Alert [X] Routine visit [] Staff referral [] Actively dying [] Patient sleeping [] Family support [] [] Out of room [] Palliative care [] [] Receiving care in room [] Pre-surgical visit [] Trauma [] Long length of stay [] ICU visit [] Other: Relational/Emotional Strength [] Patient feels connected with others/family/visitors/staff [] Distress [] Loneliness/isolation [] Abandonment Spirituality of Patient [] Person of Alisa [] Attends Latter Day of their Alisa [] Believes in Prayer [] Reads Bible or Temple materials [] There are Spiritual issues to be addressed Health And Safety Representative Interventions [] Prayer [] Active listening [] Non-anxious presence [] Spiritual/emotional support [] Crisis/trauma care [] Spiritual counseling [] Bereavement support [] Provided bereavement packet [] Provided Bible/devotional materials [] Provided toy/stuffed animal, coloring book to patient or family member [] Provided Communion [] Anointing/[place] [] Salvation [] Completed spiritual assessment [] Other: Impact on Illness or Injury [] Angry [] Fearful [] Anxious [] Often cries [] Exhaustion [] Unable to work [] Unable to attend cheondoism [] Unable to walk/stand [] Unable to read [] Unable to drive [] Unable to eat/drink [] Unable to sleep [] Unable to be with family [] Patient intubated [] Other: Summary Time spent with patient
--- NOTE | 2020-08-05 13:23 | P.PN_ITS ---
Subjective Subjective: Interval history: This morning patient was feeling a bit better, continues to have liquid bowel movements, no full bowel movements, slight abdomen slightly distended, Patient's diet was advanced to GI soft diet, he was monitored in the afternoon, no nausea, abdomen does feel a bit distended, still no bowel movement as of yet, he has lower abdominal pain, plan to keep him another night for further monitoring Vitals/I&O/Wt Last Vital Signs Temp 98.0 F 08/05/20 12:00 Pulse 72 08/05/20 12:00 Resp 18 08/05/20 12:00 BP 173/71 08/05/20 12:00 Pulse Ox 96 08/05/20 12:00 08/04/20 08/05/20 08/05/20 22:59 06:59 14:59 Intake Total 2450 / 2550 1550 / 4100 540 / 540 Output Total 100 / 100 1220 / 1320 300 / 300 Balance 2350 / 2450 330 / 2780 240 / 240 Weight last 48 hrs Weight 99.337 kg Physical Exam Const: COMMON NORMALS: no acute distress and patient oriented x3 HENMT: COMMON NORMALS: normocephalic HEAD & SCALP: normocephalic Neck/C-Spine: COMMON NORMALS: no JVD Resp: COMMON NORMALS: normal respiratory effort, No retractions, No use of accessory muscles and clear to auscultation bilaterally AUSCULTATION: clear to auscultation bilaterally Cardio: COMMON NORMALS: no JVD, regular rate, regular rhythm, S1 normal heart sound present and S2 normal heart sound present RATE: regular rate RHYTHM: regular rhythm HEART SOUNDS: S1 normal heart sound present and S2 normal heart sound present GI: COMMON NORMALS: Normal to inspection, nondistended, normoactive bowel sounds present, Soft to palpation, non-tender, No hepatosplenomegaly present, no masses and no bruits INSPECTION: Yes abdominal distension PALPATION: Yes Soft to palpation, Yes Tenderness to palpation present (GI) Details: LLQ and RLQ and Yes No hepatosplenomegaly present Extremity: COMMON NORMALS: capillary refill normal, no clubbing, cyanosis or edema, no calf tenderness and no pedal edema Neuro: COMMON NORMALS: patient oriented x3 Psych: COMMON NORMALS: mental status grossly normal Data : 08/05/20 06:03 08/05/20 06:03 Micro: Microbiology 08/04/20 Unknown Stool Lactoferrin - Final Stool Enteric Pathogens (PCR) - Final Parasite Antigen Panel - Final C.difficile Toxin B Gene (PCR) - Final Occult Blood (FIT) - Final A&P Assessment and plan (1) Pancolitis: -CT scan shows: 1.Fluid distended loops of small bowel in the midabdomen with mucosal enhancement and thickening involving the distal ileal loops. In addition there is new fluid distended colon extending to the sigmoid with air-fluid levels also with mucosal enhancement in some areas. 2. Above findings compatible with enterocolitis likely infectious or inflammatory in etiology. Also correlate with history of Inflammatory bowel disease. -No significant leukocytosis, afebrile, normotensive -No transition point, bowel obstruction seen on CT scan -No nausea, no vomiting, no need for NG tube placement at this point -Having liquidy bowel movements Plan: -Advance to GI soft diet, bowel regimen -Decrease fluids to 75 cc an hour -Continue Cipro and Flagyl for infectious colitis -C. difficile negative, collect stool sample given recent antibiotic use -Serial abdominal exams, monitor for bowel movements -Full code -Lovenox for DVT prophylaxis Status: Acute (2) Onychocryptosis: Status: Acute (3) Hypercholesteremia: Status: Acute (4) HTN (hypertension): Status: Acute (5) Recurrent UTI: Status: Acute Attestations Medical Necessity Statement*: Patient requires hospitalization for pancolitis, Coding Level of Care Code Acute Insurance Coordinator for [facility] Diagnoses Pancolitis K51.00 Onychocryptosis L60.0 Hypercholesteremia E78.00 HTN (hypertension) I10 Recurrent UTI N39.0
[2020-08-05] MEDS: sodium chloride 0.9% 1,000 ML 75 ML IV (14:14)
[2020-08-05] MEDS: enoxaparin 40 mg/0.4 mL Syringe SUBCUT (14:16)
[2020-08-05] MEDS: amlodipine 10 mg Tablet PO (17:09)
[2020-08-05] MEDS: metoprolol succinate ER (24 HR) 100 mg Tablet PO (17:09)
[2020-08-05] MEDS: ascorbic acid 500 mg Tablet 1000 MG PO (17:09)
[2020-08-05] MEDS: aspirin 81 mg Chew Tablet PO (17:10)
[2020-08-05] MEDS: cholecalciferol (vitamin D3) 5,000 unit Tablet 5000 UNIT PO (17:10)
[2020-08-05] MEDS: atorvastatin 40 mg Tablet 20 MG PO (17:11)
[2020-08-05] MEDS: venlafaxine ER (24HR) 75 mg Capsule PO (17:11)
[2020-08-05] MEDS: venlafaxine ER (24HR) 150 mg Capsule PO (17:11)
[2020-08-05] MEDS: tamsulosin 0.4 mg Capsule PO (17:11)
[2020-08-05] MEDS: pantoprazole DR 40 mg Tablet PO (17:12)
[2020-08-06] MEDS: sodium chloride 0.9% 1,000 ML 75 ML IV (01:31)
[2020-08-06] MEDS: ciprofloxacin 400 MG/200 ML PREMIX 200 MG IV (01:31)
[2020-08-06 04:00] VITALS: BP 135/80; PULSE 71; RESP 17; TEMP 36.6; O2SAT 94
[2020-08-06] MEDS: metroNIDAZOLE IV 500 MG/100 ML PREMIX 100 MG IV (05:37)
[2020-08-06 06:11] LABS: Basophils % 0.6 %; Eosinophils # 0.2 10^3/uL (0.0-0.8); Eosinophils % 3.1 %; Hematocrit 37.7 % (42.0-52.0); Hemoglobin 12.4 g/dL (11.7-16.6); Lymphocytes # 1.3 10^3/uL (0.8-4.8); Lymphocytes % 24.6 %; Mean Corpuscular HGB Conc 32.9 g/dL (30.0-36.0); Mean Corpuscular Hemoglobin 29.5 pg (28.0-34.0); Mean Corpuscular Volume 89.8 fL (80-94); Mean Platelet Volume 12.4 fL (7.4-10.4); Monocytes # 0.6 10^3/uL (0.2-0.9); Monocytes % 10.6 %; Neutrophils # 3.18 10^3/uL (1.8-7.7); Neutrophils % 60.9 %; Nucleated Red Blood Cells % 0 %; Platelet Count 140 10^3/cmm (130-400); Red Cell Distribution Width 13.1 % (12.1-15.1); White Blood Count 5.2 10^3/uL (4.0-10.0)
[2020-08-06 07:10] LABS: Procalcitonin 0.11 ng/mL (0-0.5)
[2020-08-06 07:21] LABS: C Reactive Protein 12.1 mg/L (0.0-4.9); Magnesium 1.8 mg/dL (1.7-2.3); Phosphorus 1.9 mg/dL (2.5-4.5)
[2020-08-06 07:56] VITALS: BP 200/95; PULSE 91; RESP 17; TEMP 36.7; O2SAT 94
[2020-08-06] MEDS: lisinopril 20 mg Tablet PO (08:24)
[2020-08-06] MEDS: carBAMazepine 200 mg Tablet 100 MG PO (08:24)
[2020-08-06] MEDS: docusate sodium 100 mg Capsule PO (08:24)
[2020-08-06] MEDS: polyethylene glycol 3350 Pkt 17 gm PO (08:24)
[2020-08-06] MEDS: chlorthalidone 25 mg Tablet PO (08:36)
[2020-08-06 09:05] VITALS: PULSE 82; RESP 18; O2SAT 95
[2020-08-06] MEDS: lactulose oral liq 20 gm/30 mL UDC PO (10:12)
--- NOTE | 2020-08-06 11:47 | PM.DCS ---
Discharge Providers Date of Admission: 08/04/20 12:04 Date of Discharge: August 06, 2020 Attending Provider at Admission: Nicholas Gurrola MD Attending Provider at Discharge: Nicholas Gurrola MD Primary Care Provider: OMA Hammond Diagnoses at Discharge Discharge Diagnosis (1) Pancolitis: Status: Acute (2) Onychocryptosis: Status: Acute (3) Hypercholesteremia: Status: Acute (4) HTN (hypertension): Status: Acute (5) Recurrent UTI: Status: Acute Reason for Visit Reason for Visit: Dizzy/obstruction? Hospital Course Hospital Course Mario Simon is a 75 year old male with a past medical history of hypertension, hyperlipidemia, GERD, recurrent UTIs, history of 6 bowel obstructions, 2 requiring surgeries, last bowel obstruction over 3 years ago, who presents to [facility] due to complaints of lower abdominal pain, watery stools, nausea. Patient was admitted to [facility] for pancolitis, CT scan did not show any significant evidence of small bowel obstruction, patient did have liquidy bowel movements, and was admitted to general medical floors, received IV fluids, broad-spectrum antibiotic therapy, clinically monitored. Patient's diet was slowly advanced, IV fluids were discontinued, was started on a bowel regimen. Patient will be discharged on a bowel regimen, Cipro and Flagyl for the 5 remaining days, monitor for recurrent symptoms if so come back to emergency room. Instructions to drink plenty of electrolyte balance fluids Physical Exam Const: COMMON NORMALS: no acute distress and patient oriented x3 HENMT: COMMON NORMALS: normocephalic HEAD & SCALP: normocephalic Neck/C-Spine: COMMON NORMALS: no JVD Resp: COMMON NORMALS: normal respiratory effort, No retractions, No use of accessory muscles and clear to auscultation bilaterally AUSCULTATION: clear to auscultation bilaterally Cardio: COMMON NORMALS: no JVD, regular rate, regular rhythm, S1 normal heart sound present and S2 normal heart sound present RATE: regular rate RHYTHM: regular rhythm HEART SOUNDS: S1 normal heart sound present and S2 normal heart sound present GI: COMMON NORMALS: Normal to inspection, nondistended, normoactive bowel sounds present, Soft to palpation, non-tender, No hepatosplenomegaly present, no masses and no bruits PALPATION: Yes Soft to palpation and Yes No hepatosplenomegaly present Extremity: COMMON NORMALS: capillary refill normal, no clubbing, cyanosis or edema, no calf tenderness and no pedal edema Neuro: COMMON NORMALS: patient oriented x3 Psych: COMMON NORMALS: mental status grossly normal Discharge Data Data Completed and Pending: Completed Studies During Hospitalization Category Date Time Status CT abdomen pelvis w con* [id number] Stat Cat Scan 08/04/20 09:11 Completed Pending at discharge Category Date Time Status C Reactive Protei n AM LABS Lab 08/07/20 04:00 Ordered Complete Blood Co unt w/Auto AM LABS Lab 08/07/20 04:00 Ordered Magnesium AM LABS Lab 08/07/20 04:00 Ordered Phosphorus AM LAB S Lab 08/07/20 04:00 Ordered Procalcitonin AM LABS Lab 08/07/20 04:00 Ordered Urine Culture Sta t Lab 08/04/20 22:40 Results Labs from last 24 hours 08/06/20 08/06/20 05:35 05:35 WBC 5.2 RBC 4.20 Hgb 12.4 Hct 37.7 L MCV 89.8 MCH 29.5 MCHC 32.9 RDW 13.1 Plt Count 140 MPV 12.4 H Neut % (Auto) 60.9 Lymph % (Auto) 24.6 Banner % (Auto) 10.6 Eos % (Auto) 3.1 Baso % (Auto) 0.6 Neut # (Auto) 3.18 Lymph # (Auto) 1.3 Banner # (Auto) 0.6 Eos # (Auto) 0.2 Baso # (Auto) 0.0 Nucleated RBC % (a uto) 0 Nucleated RBCs # 0.0 Phosphorus 1.9 L Magnesium 1.8 C-Reactive Protein 12.1 H Procalcitonin 0.11 Vitals: Last Vital Signs Temp 98.1 F 08/06/20 07:56 Pulse 82 08/06/20 09:05 Resp 18 08/06/20 09:05 BP 200/95 08/06/20 07:56 Pulse Ox 95 08/06/20 09:05 Discharge Plan Discharge Patient Disposition: Home Condition: Stable Prescriptions: New polyethylene glycol 3350 17 gram Powder In Packet 17 g PO DAILY 30 Days Qty: 30 RF: 0 Colace 100 mg capsule 100 mg PO BID 30 Days Qty: 60 RF: 0 lactulose 20 gram/30 mL solution 20 g PO BID PRN (Reason: constipation) Qty: 1200 RF: 0 Cipro 500 mg tablet 500 mg PO BID 4 Days Qty: 8 RF: 0 Flagyl 500 mg tablet 500 mg PO Q8H 5 Days Qty: 15 RF: 0 Continued cholecalciferol (vitamin D3) 125 mcg (5,000 unit) capsule 125 mcg PO DAILY@18 RF: 0 Galzin 50 mg (zinc) capsule 50 mg PO DAILY@18 RF: 0 atorvastatin 20 mg Tablet 20 mg PO DAILY@18 RF: 0 metoprolol succinate 100 mg Capsule,Sprinkle,Er 24hr 100 mg PO DAILY@18 RF: 0 tamsulosin 0.4 mg Capsule 0.4 mg PO DAILY@18 RF: 0 pantoprazole 40 mg Tablet,Delayed Release (Dr/Ec) 40 mg PO DAILY@18 RF: 0 aspirin 81 mg Tablet,Chewable 81 mg PO DAILY@18 RF: 0 budesonide-formoterol [Symbicort] 160-4.5 mcg/actuation Hfa Aerosol Inhaler 2 puff INHALATION BID RF: 0 lisinopril 10 mg tablet See Rx Instructions .ROUTE .COMPLEX RF: 0 Vitamin C 1,000 mg Tablet 1,000 mg PO DAILY@18 RF: 0 venlafaxine 75 mg capsule,extended release 24hr 75 mg PO DAILY@18 RF: 0 venlafaxine 150 mg capsule,extended release 24hr 150 mg PO DAILY@18 RF: 0 chlorthalidone 25 mg tablet 25 mg PO DAILY RF: 0 amlodipine 10 mg tablet 10 mg PO DAILY@18 RF: 0 carbamazepine 100 mg tablet,chewable See Rx Instructions .ROUTE .COMPLEX RF: 0 hydrochlorothiazide 25 mg tablet 25 mg PO DAILY@18 RF: 0 ProAir HFA 90 mcg/actuation Hfa Aerosol Inhaler 2 puff INHALATION Q4H PRN (Reason: Shortness Of Breath) RF: 0 Discharge Orders: Discharge Order (Routine); Ordered 08/06/20 Ordered By: Nicholas Gurrola Referrals: Abby Correa WEB ANALYST [Primary Care Provider] - 4-7 days (Call the office first thing friday morning at [phone] to schedule an appointment with in 4 to 7 days ) Discharge Diet: Advance as tolerated Discharge Activity: Resume usual activity Patient Instructions: Ciprofloxacin (By mouth), Metronidazole (By mouth), Laxative, Stool Softeners (By mouth), Lactulose (By mouth), Polyethylene Glycol 3350 (By mouth), Hypertension (DC), Infectious Colitis (GEN) Discharge Attestations Time Spent in Discharge Care*: less than 30 min Quality Metrics Clinical Quality Measures During this hospital stay, did patient experience: None Coding Level of Care Code Acute Wetlands Technician for [facility] Fwd Exam Comprehensive Diagnoses Pancolitis K51.00 Onychocryptosis L60.0 Hypercholesteremia E78.00 HTN (hypertension) I10 Recurrent UTI N39.0
[2020-08-06 12:00] VITALS: BP 168/77; PULSE 74; RESP 18; TEMP 36.8; O2SAT 93
[2020-08-06] MEDS: Fleet Enema 133 mL Enema PR (12:19)
[2020-08-06] MEDS: magnesium hydroxide 30 mL UDC PO (12:19)
[2020-08-06 12:57] VITALS: BP 168/77; PULSE 74; RESP 18; TEMP 36.8; O2SAT 93
--- NOTE | 2020-08-06 14:24 | PC.NURSE ---
DISCHARGE INSTRUCTIONS DISCHARGE INSTRUCTIONS GIVEN PER THIS NURSE - PT VERBALIZES UNDERSTANDING
== END 2020-08-06 14:49 | disposition home or self-care (01) | DRG 386 ==
LOC: ER 08:43 → MEDSURG 12:47
PROVIDERS: Admitting Provider Family Medicine; Emergency Provider Family Medicine; PCP Nurse Practitioner; Visit Provider Family Medicine
DX: K51.00 Ulcerative (chronic) pancolitis without complications (principal); N39.0 Urinary tract infection, site not specified; E86.0 Dehydration; E78.5 Hyperlipidemia, unspecified; I10 Essential (primary) hypertension; K21.9 Gastro-esophageal reflux disease without esophagitis; Z87.440 Personal history of urinary (tract) infections; F31.9 Bipolar disorder, unspecified; N40.1 Benign prostatic hyperplasia with lower urinary tract symptoms; Z86.73 Personal history of transient ischemic attack (TIA), and cerebral infarction without residual deficits; E78.00 Pure hypercholesterolemia, unspecified; M26.629 Arthralgia of temporomandibular joint, unspecified side; Z87.891 Personal history of nicotine dependence; L60.0 Ingrowing nail
CPT/HCPCS: 36415; 74177; 80053; 81001; 82274; 83630; 83735; 84100; 84145; 84484; 85025; 86140; 87086; 87493; 87506; 93005; 96365; 96372; 99285; J0744; J1650; J7030; Q9967; S0030

== ENCOUNTER 2020-08-28 09:51 | Emergency (ER) | payer MEDICARE, OTHER, SELFPAY ==
[2020-08-28 09:58] VITALS: BP 175/93; PULSE 67; RESP 17; TEMP 36.7; O2SAT 97; BMI 30.9
--- NOTE | 2020-08-28 10:12 | CT_ITS ---
WS: [id number] CT HEAD NONCONTRAST HISTORY: Symptoms of Acute Stroke TECHNIQUE: Contiguous axial imaging performed through the brain in 2.5 mm imaging. Bone and soft tiss ue windows. Sagittal and coronal reformats reviewed. All CT scans at [facility] use at ast one of these dose optimization techniques: automated exposure control; mA and/or kV adjustment pe r patient size (includes targeted exams where dose is matched to clinical indication); or iterative r econstruction. DLP: 936.83 mGy.cm COMPARISON: 12/26/2011 No acute intracranial hemorrhage, midline shift or mass effect. Mild symmetric atrophy. Large remote RIGHT frontal and temporal lobe infarct with volume loss and enc ephalomalacia. This infarct has significantly progressed in size since 12/26/2011. Additional chronic ischemic change in the subcortical white matter of the LEFT frontal lobe no acute area of sulcal effa cement. Small lacunar infarct in the posterior limb of the RIGHT internal capsule. Ventricles: Normal size with no hydrocephalus. Paranasal sinuses: As visualized are clear. Mastoid air cells: Well pneumatized. Calvarium and scalp: Skull is intact with no soft tissue edema or swelling. CT/CT head wo con* [id number] IMPRESSION: 1. No acute intracranial hemorrhage or edema. 2. 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 Infar ct is chronic but progressed since 2011. 3. Small remote ischemic changes or lacunar infarcts in the LEFT frontal lobe and posterior limb of the RIGHT internal capsule. Notified Bayron Tucker DO at 08/28/2020 11:10 AM.
--- NOTE | 2020-08-28 10:12 | ECG_ITS ---
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 Measurements Intervals [place] Rate: 67 P: 18 UT: 153 QRS: 43 QRSD: 104 T: 51 QT: 402 QTc: 424 Interpretive Statements SINUS RHYTHM Compared to ECG 08/04/2020 14:03:33 T-wave abnormality no longer present Electronically Signed On 08-28-2020 12:54:48 CDT by Adrianna Jimenez M.D. [email or web address] community [email or web address] [email or web address] Forcesselect medical [email or web address]/[id number] f
[2020-08-28 10:21] VITALS: BP 175/93; PULSE 60; RESP 19; O2SAT 22
--- NOTE | 2020-08-28 10:34 | ED_ITS ---
HPI - Neuro Symptoms/Deficit General: Chief Complaint: Neuro Symptoms/Deficit Stated Complaint: arm/feet numbness, weakness Time Seen by Provider: 08/28/20 09:57 History of Present Illness: HPI Narrative: 75-year-old male comes in emergency room with complaints of numbness at the bottom of his feet bilaterally and some tingling in his right arm at times. Yesterday he had some dysarthria which was transient and resolved. He says from time to time he does have some difficulty with hoarse voice and speech will seem to resolve spontaneously. He is not had any hemoptysis. Eyes any difficulty with vision. The time patient presents to the ER he has no symptoms. Onset (ago): day(s) Timing confirmed by: spouse Location: speech, left leg and right leg Severity: mild Quality: numb Relieving factors: time Exacerbating factors: none Context: gradual onset On Anticoagulants: No Associated symptoms: Deny chest pain, cough, diaphoresis, fevers/chills, he adache(s), anorexia, malaise, nausea, seizures, short of breath, syncope, tingling, vertigo, vomiting or weakness Treatments Prior to Arrival: none Review of Systems Const: Denies: malaise or diaphoresis ENMT: Denies: throat pain, ear or mastoid pain, nasal discharge or nasal congestion Card: Denies: chest pain or syncope Resp: Denies: dyspnea, productive cough or non-productive cough GI: Denies: nausea or vomiting : Denies: flank pain, dysuria, urinary frequency or urinary urgency Skin/Breast: Denies: rash or pruritus Neuro: Denies: headache(s) or vertigo PFS ED PFSH: Medical History Acid reflux Bipolar 1 disorder Bowel obstruction BPH loc w urin obs/LUTS History of facial trauma History of transient ischemic attack (TIA) HTN (hypertension) Hypercholesteremia Recurrent UTI TMJ arthralgia Surgical History History of appendectomy History of cholecystectomy History of facial fracture repair History of neck surgery History of repair of rotator cuff History of sinus surgery Family History Other CAD (coronary artery disease) Dementia Hyperlipidemia Hypertension Denies family history of Diabetes Clotting disorder Psychiatric illness Chronic kidney disease (CKD) Suicide Anesthesia complication Bleeding disorder Family history of premature coronary artery disease Lung disease Cancer Stroke Social History Smoking and tobacco status: former smoker Quit status (tobacco): has quit using tobacco Year quit tobacco: 1986 1- [id number] Second hand smoke exposure: Yes Smoking risk assessment/counseling performed?: Yes Alcohol intake: current Alcohol intake frequency: holidays/special occasions only Lives independently: Yes Household members: spouse Housing: House Marital status: service: Yes branch: [employer] Current occupational status: employed 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 Pets and animals: Yes History of recent travel: No Current gender identity: Male NIH stroke score NIHSS: Level Of Consciousness - 1a: 0 Level Of Consciousness Questions - 1b: Both Correct Level Of Consciousness Commands - 1c: Both Correct Best Gaze - 2: Normal Visual Peter - 3: No Visual Loss Facial Palsy - 4: Normal Motor Arm Right - 5: No Drift Motor Arm Left - 5: No Drift Motor Leg Right - 6: No Drift Motor Leg Left - 6: No Drift Limb Ataxia - 7: Absent Sensory - 8: Mild To Moderate Loss Best Language - 9: No Aphasia Dysarthia - 10: Normal Extinction And Inattention - 11: 0 Score: Total Score: 1 Physical Exam Const: COMMON NORMALS: no acute distress GENERAL APPEARANCE: cooperative and comfortable ORIENTATION/CONSCIOUSNESS: Yes awake, Yes oriented to person, Yes oriented to place and Yes oriented to time HENMT: COMMON NORMALS: normocephalic, atraumatic, hearing grossly normal bilaterally, external ears normal, EAC's normal, TM's normal bilaterally, Normal nasal mucous membranes and turbinates present, moist oral mucous membranes and oropharynx normal HEAD & SCALP: normocephalic and atraumatic NOSE: Normal nasal mucous membranes and turbinates present EXTERNAL EAR: Yes external ears normal EXTERNAL AUDITORY CANAL: EAC's normal TYMPANIC MEMBRANE: TM's normal bilaterally Eye: COMMON NORMALS: Equal, round and reactive pupils present, EOMs intact bilaterally, conjunctivae normal and no scleral icterus CONJUNCTIVA: Yes conjunctivae normal PUPIL: Yes Equal, round and reactive pupils present Neck/C-Spine: COMMON NORMALS: no JVD Resp: COMMON NORMALS: normal respiratory effort, No retractions, No use of accessory muscles and clear to auscultation bilaterally AUSCULTATION: clear to auscultation bilaterally Cardio: COMMON NORMALS: no JVD, regular rate, regular rhythm and No murmurs present (Cardio) RATE: regular rate RHYTHM: regular rhythm GI: COMMON NORMALS: Soft to palpation and No hepatosplenomegaly present AUSCULTATION: Yes normoactive bowel sounds PALPATION: Yes Soft to palpation, No Tenderness to palpation present (GI), No Guarding due to palpation present (GI) and Yes No hepatosplenomegaly present Extremity: COMMON NORMALS: normal to inspection, capillary refill normal, no clubbing, cyanosis or edema, no calf tenderness and no pedal edema Neuro: SENSORIUM/ORIENTATION: Yes oriented to person, Yes oriented to place and Yes oriented to time Skin: COMMON NORMALS: no rashes or lesions noted GENERAL SKIN EXAM: no rashes or lesions noted Course Vital Signs: Vital signs: Vital Signs Temperature 98.1 F 08/28/20 09:58 Pulse Rate 60 08/28/20 13:33 Respiratory Rate 18 08/28/20 13:33 Blood Pressure 149/82 08/28/20 13:33 Pulse Oximetry 97 08/28/20 13:33 MDM - Neuro Symptoms/Deficit MDM Narrative: Medical decision making narrative: 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 This may explain his intermittent dysarthria but does not not explain the numbness bilaterally in the legs at the bottom of the feet. Its resolved now. Did encourage him to continue to take aspirin daily we will set him up for ENT for mass in his larynx. For his peripheral neuropathies recommend he continue with his primary care doctor may need further evaluation including EMG and possibly advanced i maging. Lab Data: Labs: Lab Results 08/28/20 08/28/20 08/28/20 Range/Units 10:42 10:54 10:54 WBC 5.8 (4.0-10.0) 10^3/ uL RBC 4.72 (4.1-5.3) 10^6/u L Hgb 14.0 (11.7-16.6) g/dL Hct 42.0 (42.0-52.0) % MCV 89.0 (80-94) fL MCH 29.7 (28.0-34.0) pg MCHC 33.3 (30.0-36.0) g/dL RDW 12.8 (12.1-15.1) % Plt Count 167 (130-400) 10^3/c mm MPV 13.0 H (7.4-10.4) fL Neut % (Auto) 57.2 % Lymph % (Auto) 30.6 % [place] % (Auto) 8.7 % Eos % (Auto) 2.8 % Baso % (Auto) 0.5 % Neut # (Auto) 3.29 (1.8-7.7) 10^3/u L Lymph # (Auto) 1.8 (0.8-4.8) 10^3/u L [place] # (Auto) 0.5 (0.2-0.9) 10^3/u L Eos # (Auto) 0.2 (0.0-0.8) 10^3/u L Baso # (Auto) 0.0 (0.0-0.1) 10^3/u L Nucleated RBC % (a uto) 0 % Nucleated RBCs # 0.0 /100WBC PT 14.50 (12.1-14.9) SECO NDS INR 1.09 (0.8-1.2) APTT 24.9 (23.9-36.7) SECO NDS Sodium (136-145) mmol/L Potassium (3.5-5.1) mmol/L Chloride (98-107) mmol/L Carbon Dioxide (22-29) mmol/L Anion Gap (5-19) BUN (8-23) mg/dL Creatinine (0.7-1.2) mg/dL GFR Calculation Glucose (65-115) mg/dL POC Glucose 147 H (70-110) mg/dL Calculated Osmolal ity (285-295) mOsm/k g Calcium (8.5-10.5) mg/dL Total Bilirubin (0.15-1.2) mg/dL AST (0-40) U/L ALT (0-41) U/L Alkaline Phosphata se (40-130) IU/L Total Protein (6.6-8.7) g/dL Albumin (3.5-5.2) g/dL Globulin (1.3-4.6) g/dL Urine Color (Yellow) Urine Appearance (CLEAR) Urine pH (5-7) Ur Specific Gravit y (1.005-1.030) Urine Protein (Negative) Urine Glucose (UA) (Normal) Urine Ketones (Negative) Urine Blood (Negative) Urine Nitrate (Negative) Urine Bilirubin (Negative) Urine Urobilinogen (Negative) mg/dL Ur Leukocyte Emily ase (Negative) 08/28/20 08/28/20 Range/Units 10:54 11:39 WBC (4.0-10.0) 10^3/ uL RBC (4.1-5.3) 10^6/u L Hgb (11.7-16.6) g/dL Hct (42.0-52.0) % MCV (80-94) fL MCH (28.0-34.0) pg MCHC (30.0-36.0) g/dL RDW (12.1-15.1) % Plt Count (130-400) 10^3/c mm MPV (7.4-10.4) fL Neut % (Auto) % Lymph % (Auto) % [place] % (Auto) % Eos % (Auto) % Baso % (Auto) % Neut # (Auto) (1.8-7.7) 10^3/u L Lymph # (Auto) (0.8-4.8) 10^3/u L [place] # (Auto) (0.2-0.9) 10^3/u L Eos # (Auto) (0.0-0.8) 10^3/u L Baso # (Auto) (0.0-0.1) 10^3/u L Nucleated RBC % (a uto) % Nucleated RBCs # /100WBC PT (12.1-14.9) SECO NDS INR (0.8-1.2) APTT (23.9-36.7) SECO NDS Sodium 138 (136-145) mmol/L Potassium 3.5 (3.5-5.1) mmol/L Chloride 99 (98-107) mmol/L Carbon Dioxide 30 H (22-29) mmol/L Anion Gap 12.5 (5-19) BUN 18 (8-23) mg/dL Creatinine 0.9 (0.7-1.2) mg/dL GFR Calculation Not Reportable Glucose 137 H (65-115) mg/dL POC Glucose (70-110) mg/dL Calculated Osmolal ity 290 (285-295) mOsm/k g Calcium 9.3 (8.5-10.5) mg/dL Total Bilirubin 0.4 (0.15-1.2) mg/dL AST 16 (0-40) U/L ALT 23 (0-41) U/L Alkaline Phosphata se 103 (40-130) IU/L Total Protein 7.0 (6.6-8.7) g/dL Albumin 4.4 (3.5-5.2) g/dL Globulin 2.6 (1.3-4.6) g/dL Urine Color Yellow (Yellow) Urine Appearance Clear (CLEAR) Urine pH 5 (5-7) Ur Specific Gravit y 1.020 (1.005-1.030) Urine Protein Neg (Negative) Urine Glucose (UA) Norm (Normal) Urine Ketones Negative (Negative) Urine Blood Neg (Negative) Urine Nitrate Negative (Negative) Urine Bilirubin Neg (Negative) Urine Urobilinogen Norm (Negative) mg/dL Ur Leukocyte Emily ase Negative (Negative) Discharge Plan Discharge Patient Disposition: Home Clinical Impression: Laryngeal mass, Transient ischemic attack (TIA) Condition: Stable Prescriptions: No Action cholecalciferol (vitamin D3) 125 mcg (5,000 unit) capsule 125 mcg PO DAILY@18 RF: 0 Incruse Ellipta 62.5 mcg/actuation blister with device 1 inh inhalation Q24H Qty: 30 RF: 3 atorvastatin 20 mg Tablet 20 mg PO DAILY@18 RF: 0 metoprolol succinate 100 mg Capsule,Sprinkle,Er 24hr 100 mg PO DAILY@18 RF: 0 tamsulosin 0.4 mg Capsule 0.4 mg PO DAILY@18 RF: 0 pantoprazole 40 mg Tablet,Delayed Release (Dr/Ec) 40 mg PO DAILY@18 RF: 0 aspirin 81 mg Tablet,Chewable 81 mg PO DAILY@18 RF: 0 budesonide-formoterol [Symbicort] 160-4.5 mcg/actuation Hfa Aerosol Inhaler 2 puff INHALATION BID RF: 0 lisinopril 10 mg tablet 40 mg PO DAILY@1800 RF: 0 ascorbic acid (vitamin C) [Vitamin C] 1,000 mg Tablet 1,000 mg PO DAILY@1800 RF: 0 venlafaxine 75 mg capsule,extended release 24hr 75 mg PO DAILY@18 RF: 0 venlafaxine 150 mg capsule,extended release 24hr 150 mg PO DAILY@18 RF: 0 chlorthalidone 25 mg tablet 25 mg PO DAILY@1800 RF: 0 amlodipine 10 mg tablet 10 mg PO DAILY@18 RF: 0 carbamazepine 100 mg tablet,chewable See Rx Instructions .ROUTE .COMPLEX RF: 0 albuterol sulfate [ProAir HFA] 90 mcg/actuation Hfa Aerosol Inhaler 2 puff INHALATION Q4H PRN (Reason: Shortness Of Breath) RF: 0 lactulose 20 gram/30 mL solution 20 g PO BID PRN (Reason: constipation) Qty: 1200 RF: 0 zinc 50 mg Tablet 50 mg PO DAILY RF: 0 polyethylene glycol 3350 17 gram powder in packet 17 g PO DAILY@1800 RF: 0 Colace 100 mg capsule 100 mg PO BID PRN (Reason: Constipation) RF: 0 Discharge Orders: Discharge ED (Routine); Ordered 08/28/20 Ordered By: Bayron Tucker Referrals: Abby Correa, COMMERCIAL BANKER [Primary Care Provider] - Discharge Diet: Usual diet Discharge Activity: Increase activity as tolerated Patient Instructions: Opioid Safety Activity Restrictions/Additional Instructions: Case management will call to get you set up for an echocardiogram and 24-hour Holter. As well as follow-up with the ENT for laryngeal mass. Coding Level of Care Code ED Electrical Test Technician for Katya Craft
[2020-08-28 10:45] LABS: Glucose Point of Care 147 mg/dL (70-110)
[2020-08-28 11:04] LABS: Basophils % 0.5 %; Eosinophils # 0.2 10^3/uL (0.0-0.8); Eosinophils % 2.8 %; Lymphocytes # 1.8 10^3/uL (0.8-4.8); Lymphocytes % 30.6 %; Mean Corpuscular HGB Conc 33.3 g/dL (30.0-36.0); Mean Corpuscular Hemoglobin 29.7 pg (28.0-34.0); Monocytes # 0.5 10^3/uL (0.2-0.9); Monocytes % 8.7 %; Neutrophils # 3.29 10^3/uL (1.8-7.7); Neutrophils % 57.2 %; Nucleated Red Blood Cells % 0 %; Platelet Count 167 10^3/cmm (130-400); Red Blood Count 4.72 10^6/uL (4.1-5.3); Red Cell Distribution Width 12.8 % (12.1-15.1); White Blood Count 5.8 10^3/uL (4.0-10.0)
[2020-08-28 11:18] LABS: INR 1.09 (0.8-1.2)
[2020-08-28 11:19] LABS: Partial Thromboplastin Time 24.9 SECONDS (23.9-36.7)
--- NOTE | 2020-08-28 11:27 | CT_ITS ---
WS: [id number] CT ANGIOGRAM CEREBRAL AND CAROTID ARTERIES HISTORY: CVA TECHNIQUE: CT angiogram is performed of the carotid and cerebral arteries. During arterial injection imaging is obtained from the skull vertex to the aortic arch in 1.25 mm imaging. Coronal and sagittal reformats are submitted. Additional multi planar reformats of the carotid and cerebral arteries are submitted, MIP imaging also reviewed. NASCET criteria utilized. All CT scans at [facility] use at least one of these dose optimization techniques: automated exposure control; mA and/or kV ad justment per patient size (includes targeted exams where dose is matched to clinical indication); or iterative reconstruction. CONTRAST: Omnipaque 350; 95 mL IV. DLP: 2295.9 mGy.cm COMPARISON: None available. Carotid Angiogram: Right carotid: Common carotid artery: Arises normally from the innominate artery. No significant plaque or stenosis. Internal carotid artery: No plaque or stenosis. External carotid artery: Patent. Left carotid: Common carotid artery: Arises normally from the aorta. No significant plaque or stenosis. Internal carotid artery: Mild narrowing of the proximal ICA and intimal thickening. Stenosis calculat ed at 50%. External carotid artery: Patent. Right vertebral artery: Mild stenosis involving the proximal RIGHT vertebral artery but it is patent. Left vertebral artery: Unremarkable. Arises normally from the subclavian artery. Subclavian arteries: No stenosis or significant abnormality. Upper thorax: Normal. Thyroid gland: Normal. Osseous structures: Unremarkable. CEREBRAL ANGIOGRAM: Intracranial vertebral arteries: Normal with no significant atherosclerosis. Basilar artery: No significant stenosis or occlusion. No aneurysm. Intracranial Internal carotid arteries: Mild atherosclerotic plaque. There is 50% narrowing involving the RIGHT intracranial carotid artery through the cavernous sinus. Middle cerebral arteries: Normal. Anterior cerebral arteries and ACOM: Normal. Posterior cerebral arteries and PCOM's: Normal. Dural venous sinuses are normally enhancing. Mastoid air cells: Normal. Paranasal sinuses: Small polyp or mucous retention cyst in the LEFT maxillary sinus. Calvarium: Normal. Several rounded cystic masses involving the LEFT glossoepiglottic fold and extending into the anterio r LEFT vallecula. The largest measures 6.[address]/CT angio headneck* [id number] IMPRESSION: 1. 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 2. 50% stenosis involving the RIGHT intracranial carotid artery through the ca vernous sinus. 3. Several cystic masses along the LEFT glossoepiglottic fold and extending in to the LEFT vallecula. Recommend direct visualization to exclude neoplasm. 4. Unremarkable alturas of Weeks.
[2020-08-28 11:42] VITALS: BP 175/93; PULSE 60; RESP 18; O2SAT 97
[2020-08-28 11:42] LABS: Alanine Aminotransferase 23 U/L (0-41); Albumin Level 4.4 g/dL (3.5-5.2); Alkaline Phosphatase 103 IU/L (40-130); Anion Gap 12.5 (5-19); Aspartate Amino Transferase 16 U/L (0-40); Blood Urea Nitrogen 18 mg/dL (8-23); Calcium 9.3 mg/dL (8.5-10.5); Carbon Dioxide 30 mmol/L (22-29); Chloride 99 mmol/L (98-107); Globulin 2.6 g/dL (1.3-4.6); Glucose 137 mg/dL (65-115); Osmolality Calculated 290 mOsm/kg (285-295); Potassium 3.5 mmol/L (3.5-5.1); Sodium 138 mmol/L (136-145); Total Bilirubin 0.4 mg/dL (0.15-1.2)
[2020-08-28 12:10] LABS: Add Urine Microscopic? NO
[2020-08-28] MEDS: iohexol 350 mg/mL 100 mL Btl IV (12:12)
[2020-08-28 12:18] LABS: Bilirubin Urine Neg (Negative); Blood Urine Neg (Negative); Glucose Urine UA Norm (Normal); Ketones Urine Negative (Negative); Leukocyte Esterase Urine Negative (Negative); Nitrate Urine Negative (Negative); Protein Urine Neg (Negative); Urine Appearance Clear (CLEAR); Urine Color Yellow (Yellow); Urobilinogen Urine Norm (Negative); pH Urine 5 (5-7)
[2020-08-28 12:51] VITALS: BP 130/71; PULSE 61; RESP 20; O2SAT 98
[2020-08-28 13:33] VITALS: BP 149/82; PULSE 60; RESP 18; O2SAT 97
== END 2020-08-28 13:35 | disposition home or self-care (01) ==
PROVIDERS: Emergency Provider Family Medicine; PCP Nurse Practitioner
DX: J38.7 Other diseases of larynx (principal); G45.9 Transient cerebral ischemic attack, unspecified; Z79.82 Long term (current) use of aspirin; I10 Essential (primary) hypertension; Z86.73 Personal history of transient ischemic attack (TIA), and cerebral infarction without residual deficits; Z87.891 Personal history of nicotine dependence
CPT/HCPCS: 36416; 70450; 70496; 70498; 80053; 81003; 82962; 85025; 85610; 85730; 93005; 99284; Q9967

== ENCOUNTER → 2020-09-01 18:13 | Outpatient (BNVA) | payer MEDICARE, OTHER, SELFPAY | PROVIDERS: PCP Nurse Practitioner; Visit Provider Internal Medicine Pulmonary Disease | DX: J44.9 Chronic obstructive pulmonary disease, unspecified (principal); Z20.822 Contact with and (suspected) exposure to COVID-19 | CPT/HCPCS: 87635 ==

== ENCOUNTER → 2020-09-22 13:38 | Outpatient (BNVA) | payer MEDICARE, OTHER, SELFPAY | PROVIDERS: PCP Nurse Practitioner; Visit Provider Internal Medicine Pulmonary Disease | DX: Z01.812 Encounter for preprocedural laboratory examination (principal); Z20.822 Contact with and (suspected) exposure to COVID-19 | CPT/HCPCS: 87635 ==

== ENCOUNTER 2020-09-26 09:26 | Outpatient (CLI) | payer MEDICARE, OTHER, SELFPAY ==
--- NOTE | 2020-09-26 09:30 | USCV_ITS ---
Mario Simon Age: 75 Gender: M : 1945 Exam Date: 09/26/2020 09:57 Ordering Phys: Dru Collier MD Technologist: Nahun Crowe Exam Location: [facility] [place] Indication: CP BP: 130 / 70 HR: 67 Rhythm: Sinus Technical Quality: Adequate MEASUREMENTS (Male / Female) Normal Values 2D ECHO LV Diastolic Diameter PLAX 4.3 cm 4.2 - 5.9 / 3.9 - 5.3 cm LV Systolic Diameter PLAX 2.8 cm IVS Diastolic Thickness 1.4 cm 0.6 - 1.0 / 0.6 - 0.9 cm IVS Systolic Thickness 1.6 cm LVPW Diastolic Thickness 1.3 cm 0.6 - 1.0 / 0.6 - 0.9 cm LVPW Systolic Thickness 1.6 cm LVOT Diameter 2.1 cm LV Ejection Fraction 2D Teich 65.0 % LV Ejection Fraction MOD 2C 64.9 % LV Ejection Fraction 2C AL 65.6 % LA Diameter 3.5 cm LA Width 3.5 cm LA Height 5.0 cm RA Width 3.8 cm RA Height 4.3 cm M-MODE LV Diastolic Diameter MM 4.8 cm 4.2 - 5.9 / 3.9 - 5.3 cm LV Systolic Diameter MM 3.2 cm LV Ejection Fraction MM Teich 61.4 % IVS Diastolic Thickness MM 1.7 cm 0.6 - 1.0 / 0.6 - 0.9 cm IVS Systolic Thickness MM 2.1 cm LVPW Diastolic Thickness MM 1.5 cm 0.6 - 1.0 / 0.6 - 0.9 cm LVPW Systolic Thickness MM 2.0 cm RV Diastolic Diameter MM 1.5 cm Aortic Annulus Diameter 3.6 cm LA Ao Ratio MM 1.0 MV E Point Septal Separation 0.8 cm DOPPLER AV Peak Velocity 169.0 cm/s LVOT Peak Velocity 87.0 cm/s AV Area Cont Eq vti 1.7 cm squared AV Area Cont Eq pk 1.8 cm squared MV Area PHT 5.0 cm squared Mitral E to A Ratio 1.0 MV E' Velocity 46.0 cm/s Mitral E to MV E' Ratio 8.4 Mitral E to LV E' Lateral Ratio 8.6 Mitral E to LV E' Septal Ratio 8.1 TR Peak Velocity 150.0 cm/s TR Peak Gradient 9.0 mmHg TV Peak E Velocity 89.0 cm/s Right Atrial Pressure 3.0 mmHg Pulmonary Artery Systolic Pressu 12.0 mmHg PV Peak Velocity 87.0 cm/s FINDINGS Left Ventricle Normal left ventricular cavity size. Normal left ventricular systolic function. No regional wall motion abnormalities. Left ventricular ejection fraction is estimated at 61 %. Grade I/IV diastolic dysfunction (abnormal relaxation filling pattern), normal to mildly elevated filling pressures. Right Ventricle The right ventricle is normal in size and function. Right Atrium The right atrium is normal in size. Left Atrium The left atrium is normal in size. Mitral Valve Moderately thickened mitral valve. No mitral valve stenosis. No mitral valve regurgitation. Aortic Valve Aortic valve sclerosis without stenosis or regurgitation. Tricuspid Valve Structurally normal tricuspid valve without significant stenosis or regurgitation. Pulmonary artery systolic pressure is normal. Pulmonic Valve Structurally normal pulmonic valve without significant stenosis. There is no pulmonic regurgitation. Pericardium Normal pericardium without effusion. Aorta Normal ascending aorta dimension. CONCLUSIONS 1-Normal left ventricular cavity size. Normal left ventricular systolic function. No regional wall motion abnormalities. Left ventricular ejection fraction is estimated at 61 %. Grade I/IV diastolic dysfunction (abnormal relaxation filling pattern), normal to mildly elevated filling pressures. 2-There is no pericardial effusion. 3-No significant valve abnormalities. 4-Right atrial pressure is around 5 mm of mercury. 6-There are no prior echocardiogram studies to compare. Vasquez Izquierdo MD (Electronically Signed) Final Date: 14 Oct 2020 16:29 S
[2020-09-26 10:37] VITALS: BP 142/78
--- NOTE | 2020-09-26 10:43 | PFTS_ITS ---
Date of Study:09/26/20 Date of Dictation: MECHANICS: Forced vital capacity (FVC) is normal. Forced expiratory volume in one second (FEV1) is reduced. FEV1/FVC is reduced. FLOW VOLUME LOOP: Mild scooping. LUNG VOLUMES: Total lung capacity (TLC) is reduced. Residual volume (RV) is normal. DIFFUSING CAPACITY FOR CARBON MONOXIDE: Normal. INTERPRETATION: The prebronchodilator spirometry is consistent with moderate obstruction. No postbronchodilator spirometry was performed. Lung volumes are consistent with mild restriction. Gas exchange (DLCO) is normal. MTDD
== END 2020-09-26 09:27 | disposition home or self-care (01) ==
PROVIDERS: PCP Nurse Practitioner; Visit Provider Internal Medicine Pulmonary Disease
DX: J44.9 Chronic obstructive pulmonary disease, unspecified (principal)
CPT/HCPCS: 93306; 94010; 94618; 94726; 94729

== ENCOUNTER 2020-10-12 09:19 | Outpatient (CLI) | payer MEDICARE, OTHER, SELFPAY ==
[2020-10-12 09:56] LABS: Basophils % 0.4 %; Eosinophils # 0.1 10^3/uL (0.0-0.8); Hematocrit 41.6 % (42.0-52.0); Hemoglobin 13.8 g/dL (11.7-16.6); Lymphocytes # 1.8 10^3/uL (0.8-4.8); Lymphocytes % 25.9 %; Mean Corpuscular HGB Conc 33.2 g/dL (30.0-36.0); Mean Corpuscular Volume 90.4 fL (80-94); Mean Platelet Volume 12.3 fL (7.4-10.4); Monocytes # 0.5 10^3/uL (0.2-0.9); Monocytes % 7.2 %; Neutrophils # 4.55 10^3/uL (1.8-7.7); Neutrophils % 64.4 %; Nucleated Red Blood Cells % 0 %; Platelet Count 168 10^3/cmm (130-400); Red Cell Distribution Width 12.9 % (12.1-15.1); White Blood Count 7.1 10^3/uL (4.0-10.0)
[2020-10-13 16:42] LABS: Alternaria Alternata (M6) Ige <0.10 kU/L; Alternaria Class 0; Bermuda Class 0; Bermuda Grass (G2) Ige <0.10 kU/L; Cat Dander (E1) Ige <0.10 kU/L; Cat Dander Class 0; Common Ragweed (Short) (W1) Ig <0.10 kU/L; D. Farinae Class 0; Dermatophagoides Class 0; Dermatophagoides Farinae (D2) <0.10 kU/L; Dermatophagoides Pteronyssinus <0.10 kU/L; Dog Dander (E5) Ige <0.10 kU/L; Dog Dander Class 0; Elm (T8) Ige <0.10 kU/L; Elm Class 0; English Plantain (W9) Ige <0.10 kU/L; English Plantain Class 0; House Dust (Greer) (H1) Ige <0.10 kU/L; House Dust (Hollister- Stier) <0.10 kU/L; House Dust Class 0; Immunoglobulin E 19 kU/L (<OR=114); Immunoglobulin E 20 kU/L (<OR=114); Johnson Grass Cl 0/1; June Grass Class 1; Lamb'S Quarters (Goose Foot) <0.10 kU/L; Lamb'S Quarters Class 0; Maple (Box Elder) (T1) Ige <0.10 kU/L; Maple Class 0; Meadow Fescue (G4) Ige 0.56 kU/L; Meadow Fescue Class 1; Mucor Racemosus Class 0; Oak (T7) Ige <0.10 kU/L; Oak Class 0; Orchard Grass (Cocksfoot) (G3) 0.43 kU/L; Penicillium Class 0; Penicillium Notatum (M1) Ige <0.10 kU/L; Perennial Rye Grass (G5) Ige 0.51 kU/L; Perennial Rye Grass Class 1; Ragweeed Class 0; Rough Marsh Elder (W16) Ige <0.10 kU/L; Rough Marsh Elder Class 0; Sweet Vernal Class 1; Sweet Vernal Grass (G1) Ige 0.37 kU/L; Timothy Grass (G6) Ige 0.49 kU/L; Timothy Grass Class 1
[2020-10-16 22:28] LABS: Aspergillus Fumigatus, Igg Ab, 28.8 mg/L (<=102)
== END 2020-10-12 09:20 | disposition home or self-care (01) ==
LOC: LAB 09:25
PROVIDERS: PCP Nurse Practitioner; Visit Provider Internal Medicine Pulmonary Disease
DX: J44.9 Chronic obstructive pulmonary disease, unspecified (principal)
CPT/HCPCS: 36415; 82785; 85025; 86003

== ENCOUNTER → 2021-02-05 09:41 | Outpatient (BNVA) | payer MEDICARE, OTHER, SELFPAY | PROVIDERS: PCP Nurse Practitioner; Visit Provider Urology | DX: N40.1 Benign prostatic hyperplasia with lower urinary tract symptoms (principal); N39.0 Urinary tract infection, site not specified | CPT/HCPCS: 81003 ==

== ENCOUNTER 2021-06-04 06:47 | Outpatient (CLI) | payer MEDICARE, OTHER, SELFPAY ==
--- NOTE | 2021-06-04 07:07 | XR_ITS ---
WS: [id number] KUB, AP view, 06/04/2021 Clinical Data: RECURRENT UTI Comparison: KUB, 09/02/2018. Findings: No abnormal intraabdominal masses or calcifications are seen. There is no dilatated small bowel or ev idence of obstruction. There are clips in the right upper quadrant from a cholecystectomy. XR/XR KUB [id number] Impression: Negative KUB.
--- NOTE | 2021-06-04 07:15 | US_ITS ---
WS: [id number] ULTRASOUND RENAL TECHNIQUE: Ultrasound examination of both kidneys. CLINICAL INFORMATION: BPH LOC W URIN OBS/LUTS, AND RECURRENT UTI COMPARISON: None. FINDINGS: RIGHT: Right kidney is normal in size and appearance. Echogenicity: Normal. Cortical thickness: 1.9 cm; Normal. Hydronephrosis: None. Perinephric fluid: None. Right kidney measures: 12.5 cm x 6.0 cm x 5.0 cm. LEFT: Left kidney is normal in size and appearance. Echogenicity: Normal. Cortical thickness: 1.9 cm; Normal. Hydronephrosis: None. Perinephric fluid: None. Left kidney measures: 10.2 cm x 5.6 cm x 4.9 cm. Normal visualized aorta. Post void bladder 37 cc US/US renal BI* [id number] IMPRESSION: 1. No hydronephrosis in either kidney. 2. Bilateral ureteral jets visualized. 3. The prostate measures 2.6 x 5.4 x 3.8 cm
== END 2021-06-04 06:48 | disposition home or self-care (01) ==
PROVIDERS: PCP Nurse Practitioner; Visit Provider Urology
DX: N40.1 Benign prostatic hyperplasia with lower urinary tract symptoms (principal); N39.0 Urinary tract infection, site not specified
CPT/HCPCS: 74018; 76770; 81003

== ENCOUNTER 2021-09-11 08:11 | Outpatient (CLI) | payer MEDICARE, OTHER, SELFPAY ==
[2021-09-11 08:16] VITALS: BMI 29.4
--- NOTE | 2021-09-11 08:17 | NMCV_ITS ---
NM rossana perf SPECT r/s* [id number] Mario Simon Age: 76 Gender: M : 1945 Exam Date: 09/11/2021 09:26 Ordering Phys: Abby Correa Technologist: CARLOS Welch Exam Location: [facility] Indications: LETHARGY STRESS TEST Please [facility] IMAGE PROTOCOL Rest/Stress 1 Lexiscan Day Radiopharmaceutical Dose (mCi) Administration Site Administered by Rest: Tc-99m 10.9 IV CARLOS Joseph Sestamibi Stress:Tc-99m 32.9 IV CARLOS Joseph Sestamibi Rest: 11-Sep-2021 60 Discovery 630 Stress: 11-Sep-2021 30 Discovery 630 0.4mg Lexiscan. Images obtained in supine and prone position. SPECT RESULTS Technical Quality: Excellent Raw Data Analysis: Normal Image Corrections: No attenuation or motion correction applied Summed Stress Score: 1 Summed Rest Score: 1 Summed Difference Score: 1 PERFUSION FINDINGS Small size perfusion abnormality of mild severity of apical lateral wall on rest images and in mid to apical inferolateral jennings on stress images. There is improved tracer uptake on prone stress images. FUNCTIONAL RESULTS (calculated via Gated SPECT) Stress Image LV EF (%): 62 Stress EDV (mL):95 TID: 0.91 Stress ESV (mL):36 FUNCTIONAL FINDINGS: The left ventricle is normal in size. Transient Ischemia Dilatation of 0.91. The left ventricular ejection fraction is normal with a value of 62%. There is normal left ventricular wall thickening with no regional wall motion abnormality. Normal end-diastolic and end-systolic volumes. IMPRESSIONS 1. Myocardial perfusion imaging is normal. 2. Overall left ventricular systolic function is normal without regional wall motion abnormalities. 3. The left ventricular ejection fraction is normal with a value of 62%. 4. No significant EKG changes with Lexiscan infusion. Please refer to separate report for details. 5. Scan indicates low risk for cardiac events. Adrianna Jimenez MD (Electronically Signed) Final Date: 12 September 2021 19:12 S
--- NOTE | 2021-09-11 08:17 | ECG_ITS ---
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 Interpretive Statements NAME OF STUDY: LEXISCAN SESTAMIBI STRESS TEST INDICATION: DECREASED STAMINA, exertional shortness of breath PROCEDURE: At the baseline, the blood pressure was 148/70 mmHg with a heart rate of 74 bpm and oxygen saturation 98%. The electrocardiogram showed normal sinus rhythm, normal axis with nonspecific ST depression. The Lexiscan was infused over a period of 20 seconds. A total of 0.4 milligrams of Lexiscan was infused. The stress phase was continued for a total of 5 minutes. Heart rate at the end of the stress phase was 83 bpm, oxygen saturation 99% with a blood pressure of 139/59 mmHg. The EKG at the peak infusion revealed sinus rhythm with no significant ST-T wave changes. The study was terminated due to protocol completion. Sestamibi was injected 20 seconds after the Lexiscan infusion. Blood pressure at the end of the recovery phase was 132/68 mmHg, oxygen saturation 98% with a heart rate of 76 beats per minute. CONCLUSION: Patient was unable to meet target HR and test was changed to lexiscan. 1. No significant EKG changes with the LexiScan infusion 2. No LexiScan induced chest pain or cardiac arrhythmia. 3. Normal blood pressure and heart rate response. 4. Sestamibi/sestamibi perfusion scan pending; see separate report. RESULT TO ABBY MORRISON Electronically Signed On 09-12-2021 19:06:55 CDT by Adrianna Jimenez M.D. [id number]
[2021-09-11] MEDS: regadenoson 0.4 Mg/5 ml Syringe IVP (10:24)
[2021-09-11 10:46] VITALS: BP 133/85; PULSE 76
== END 2021-09-11 08:12 | disposition home or self-care (01) ==
LOC: CDL 08:11
PROVIDERS: PCP Physician Assistant; Visit Provider Nurse Practitioner
DX: R53.83 Other fatigue (principal); R06.02 Shortness of breath
CPT/HCPCS: 78452; 93017; A9500; J2785

== ENCOUNTER → 2021-09-19 09:35 | Outpatient (BNVA) | payer MEDICARE, OTHER, SELFPAY | PROVIDERS: PCP Physician Assistant; Visit Provider Internal Medicine Cardiovascular Disease | DX: I10 Essential (primary) hypertension (principal); E78.00 Pure hypercholesterolemia, unspecified; G47.33 Obstructive sleep apnea (adult) (pediatric); J44.9 Chronic obstructive pulmonary disease, unspecified; E11.9 Type 2 diabetes mellitus without complications; Z87.891 Personal history of nicotine dependence; Z79.82 Long term (current) use of aspirin; Z79.84 Long term (current) use of oral hypoglycemic drugs | CPT/HCPCS: 99204 ==

== ENCOUNTER → 2021-10-04 08:10 | Outpatient (BNVA) | payer MEDICARE, OTHER, SELFPAY | PROVIDERS: PCP Physician Assistant; Visit Provider Internal Medicine Pulmonary Disease | DX: J44.9 Chronic obstructive pulmonary disease, unspecified (principal); G47.33 Obstructive sleep apnea (adult) (pediatric); Z91.89 Other specified personal risk factors, not elsewhere classified; Z77.098 Contact with and (suspected) exposure to other hazardous, chiefly nonmedicinal, chemicals; Z87.891 Personal history of nicotine dependence; I10 Essential (primary) hypertension | CPT/HCPCS: 99214 ==

== ENCOUNTER → 2021-10-11 08:20 | Outpatient (BNVA) | payer OTHER, MEDICARE, SELFPAY | PROVIDERS: PCP Physician Assistant; Visit Provider Orthopaedic Surgery | DX: S32.010A Wedge compression fracture of first lumbar vertebra, initial encounter for closed fracture (principal); W11.XXXA Fall on and from ladder, initial encounter | CPT/HCPCS: 72070; 72100; 99203; 99204 ==

== ENCOUNTER → 2021-10-30 08:29 | Outpatient (BNVA) | payer OTHER, MEDICARE, SELFPAY | PROVIDERS: PCP Physician Assistant; Visit Provider Orthopaedic Surgery | DX: S32.010D Wedge compression fracture of first lumbar vertebra, subsequent encounter for fracture with routine healing (principal); X58.XXXD Exposure to other specified factors, subsequent encounter; M47.816 Spondylosis without myelopathy or radiculopathy, lumbar region | CPT/HCPCS: 72100; 99213 ==

== ENCOUNTER → 2021-11-29 08:53 | Outpatient (BNVA) | payer OTHER, MEDICARE, SELFPAY | PROVIDERS: PCP Physician Assistant; Visit Provider Orthopaedic Surgery | DX: X58.XXXD Exposure to other specified factors, subsequent encounter (principal); M47.816 Spondylosis without myelopathy or radiculopathy, lumbar region; M47.817 Spondylosis without myelopathy or radiculopathy, lumbosacral region | CPT/HCPCS: 72100; 99213 ==

== ENCOUNTER → 2021-12-04 09:33 | Outpatient (BNVA) | payer MEDICARE, OTHER, SELFPAY | PROVIDERS: PCP Physician Assistant; Visit Provider Urology | DX: N39.0 Urinary tract infection, site not specified (principal); N40.1 Benign prostatic hyperplasia with lower urinary tract symptoms | CPT/HCPCS: 81003; 87077; 87086; 87186 ==

== ENCOUNTER → 2022-01-03 09:25 | Outpatient (BNVA) | payer OTHER, MEDICARE, SELFPAY | PROVIDERS: PCP Physician Assistant; Visit Provider Orthopaedic Surgery | DX: M47.896 Other spondylosis, lumbar region (principal); J44.9 Chronic obstructive pulmonary disease, unspecified; G47.33 Obstructive sleep apnea (adult) (pediatric); Z91.89 Other specified personal risk factors, not elsewhere classified; Z77.098 Contact with and (suspected) exposure to other hazardous, chiefly nonmedicinal, chemicals; Z87.891 Personal history of nicotine dependence | CPT/HCPCS: 72100; 99214 ==

== ENCOUNTER → 2022-02-12 12:54 | Outpatient (BNVA) | payer MEDICARE, OTHER, SELFPAY | PROVIDERS: PCP Physician Assistant; Visit Provider Otolaryngology | DX: H69.83 Other specified disorders of Eustachian tube, bilateral (principal); H90.6 Mixed conductive and sensorineural hearing loss, bilateral; J30.9 Allergic rhinitis, unspecified; Z87.891 Personal history of nicotine dependence | CPT/HCPCS: 99213 ==

== ENCOUNTER → 2022-03-14 09:51 | Outpatient (BNVA) | payer MEDICARE, OTHER, SELFPAY | PROVIDERS: PCP Physician Assistant; Visit Provider Urology | DX: N40.1 Benign prostatic hyperplasia with lower urinary tract symptoms (principal); R33.9 Retention of urine, unspecified | CPT/HCPCS: 99213 ==

== ENCOUNTER → 2022-03-27 10:22 | Outpatient (BNVA) | payer MEDICARE, OTHER, SELFPAY | PROVIDERS: PCP Physician Assistant; Visit Provider Internal Medicine Cardiovascular Disease | DX: I10 Essential (primary) hypertension (principal); E78.00 Pure hypercholesterolemia, unspecified; Z87.891 Personal history of nicotine dependence | CPT/HCPCS: 99214 ==

== ENCOUNTER 2022-04-15 08:19 | Emergency (ER) | payer MEDICARE, OTHER, SELFPAY ==
[2022-04-15 08:24] VITALS: BP 156/84; PULSE 92; RESP 18; TEMP 36.6; O2SAT 96
--- NOTE | 2022-04-15 08:56 | ED_ITS ---
Documented by User: JOSE RAMON Mckay 04/16/22 07:27 HPI - Abdominal Pain General: Chief Complaint: Abdominal Pain Stated Complaint: Possible bowel obstruction Time Seen by Provider: 04/15/22 08:31 History of Present Illness: Patient is a 76-year-old male comes to the ED with abdominal pain. Patient has a past medical history of COPD, hypertension, diabetes. He has a history of bowel obstructions and has been hospitalized multiple times for bowel obstructions and has surgical history of bowel resection. Symptoms started approximately 3 days ago. He started developing abdominal pain located in the right and left lower quadrant. He rates pain currently a 5 out of 10. Says this abdominal pain seems similar to his last bowel obstructions. He endorses having some loose stools for BM over the past couple days. Endorses belching a lot and passing gas. He has been able to eat and denies any current nausea or vomiting. He has been taking kaep-ofa-yvwiizt MiraLAX to try and trying to ambulate more to help with bowel movements. Denies any fever or chills, blood in the stool, dysuria or hematuria. Associated Symptoms: Reports constipation; Denies chills, diarrhea, dysuria, fever(s), hematochezia, hematuria, nausea and vomiting Review of Systems Const: Denies: fever(s), chills or fatigue Eyes: Denies: change in vision or eye discomfort ENMT: Denies: throat pain, odynophagia, nasal discharge or nasal congestion Card: Denies: chest pain, palpitations, edema, swelling of feet/ankles, dyspnea on exertion or orthopnea Resp: Denies: dyspnea, productive cough or non-productive cough GI: Reports: abdominal pain and constipation; Denies: nausea, vomiting, diarrhea or hematochezia : Denies: flank pain, difficulty urinating, dysuria or hematuria Musc: Denies: neck pain, back pain or extremity swelling Skin/Breast: Denies: rash or new lesions Neuro: Denies: headache(s), numbness in extremities or weakness in extremities PFS ED PFSH: Medical History Acid reflux Bipolar 1 disorder Bowel obstruction BPH loc w urin obs/LUTS Diabetes mellitus Ear foreign body History of facial trauma History of transient ischemic attack (TIA) HTN (hypertension) Hx of intestinal obstruction Surgery Hypercholesteremia Recurrent UTI TMJ arthralgia Surgical History H/O partial resection of colon History of appendectomy History of cataract surgery left History of cholecystectomy History of facial fracture repair History of hand surgery History of neck surgery History of repair of rotator cuff History of sinus surgery S/P carotid endarterectomy Status post Dupuytren's fasciectomy Family History Father No problems noted. Mother , at age 9O CHF (congestive heart failure) Alzheimer disease Other CAD (coronary artery disease) Dementia Hyperlipidemia Hypertension Social History Smoking and tobacco status: former smoker Quit status (tobacco): has quit using tobacco Year quit tobacco: 1986 1- [id number] Second hand smoke exposure: Yes Smoking risk assessment/counseling performed?: Yes Alcohol intake: current Alcohol intake frequency: few times a month Lives independently: Yes Household members: spouse Housing: House Marital status: service: Yes branch: [employer] Current occupational status: retired Pets and animals: Yes History of recent travel: No Current gender identity: Male Physical Exam Const: COMMON NORMALS: patient oriented x3 and alert GENERAL APPEARANCE: cooperative and comfortable HENMT: COMMON NORMALS: normocephalic HEAD & SCALP: normocephalic MOUTH: Normal oral and palatal mucosa present THROAT: posterior oropharynx normal and uvula midline Neck/C-Spine: COMMON NORMALS: supple GENERAL: Yes normal visual inspection Resp: COMMON NORMALS: normal respiratory effort, No retractions, No use of accessory muscles and clear to auscultation bilaterally AUSCULTATION: clear to auscultation bilaterally Cardio: COMMON NORMALS: regular rate, regular rhythm, S1 normal heart sound present, S2 normal heart sound present, No gallops present (Cardio), No clicks present (Cardio), No murmurs present (Cardio) and Peripheral pulses 2+ throughout RATE: regular rate RHYTHM: regular rhythm HEART SOUNDS: S1 normal heart sound present and S2 normal heart sound present PERIPHERAL PULSES: Peripheral pulses 2+ throughout GI: COMMON NORMALS: Soft to palpation and no masses AUSCULTATION: Yes Hypoactive bowel sounds present PALPATION: Yes Soft to palpation and Yes Tenderness to palpation present (GI) (Moderate tenderness to light palpation throughout abdomen) : COMMON NORMALS: Yes no CVA tenderness BLADDER/KIDNEY EXAM: Yes no CVA tenderness Back/Pelvis: COMMON NORMALS: no CVA tenderness Extremity: COMMON NORMALS: normal to inspection Neuro: COMMON NORMALS: patient oriented x3 SENSORIUM/ORIENTATION: Yes alert GAIT: Yes Normal gait present Skin: GENERAL SKIN EXAM: dry skin Course Vital Signs: Vital signs: Vital Signs Temperature 97.8 F 04/15/22 12:15 Pulse Rate 92 04/15/22 12:15 Respiratory Rate 18 04/15/22 12:15 Blood Pressure 156/84 04/15/22 12:15 Pulse Oximetry 96 04/15/22 12:15 MDM - Abdominal Pain Medical Decision Making Patient is a 76-year-old male comes to the ED with abdominal pain. Patient has a past medical history of COPD, hypertension, diabetes. He has a history of bowel obstructions and has been hospitalized multiple times for bowel obstructions and has surgical history of bowel resection. Symptoms started approximately 3 days ago. Patient is able to pass gas and is having some liquid stool as well. He is able to keep p.o. fluids down and no episodes of emesis. Vitals are stable. Patient appears nontoxic and in no acute distress or pain. He is some generalized abdominal tenderness throughout the abdomen. Rest of exam is benign. Labs were unremarkable. CT of abdomen pelvis showed small bowel enteritis and possibly the start of small bowel obstruction. I talked with Dr. Tucker about patient case and he agreed that patient would be stable for discharge home and to start with outpatient management first with close follow-up within the next 1 to 2 days with his PCP. Patient was diagnosed with enteritis and was discharged home and told to follow-up with his PCP to have a repeat abdominal exam in the next 1 to 2 days. He was told to have a clear liquid diet and to continue using zpra-voi-kusnjjy constipation medications such as MiraLAX. He was given strict return to ED precautions. Patient understood and agreed with plan. Lab Data I reviewed the patient's lab results. : 04/15/22 09:10 04/15/22 09:10 Labs/Radiology: Radiology Impressions Abdomen/Pelvis CT 04/15/22 09:02 IMPRESSION: 1. Mild distal small bowel enteritis noted. Gradual transition to dilated mid small bowel concerning for possible developing small bowel obstruction. These findings are overall similar to prior exam in 2020. 2. Right-sided nephrolithiasis. Laboratory Results WBC 6.5 10^3/uL (4.0-10.0) 04/15/22 09:10 RBC 4.58 10^6/uL (4.1-5.3) 04/15/22 09:10 Hgb 13.2 g/dL (11.7-16.6) 04/15/22 09:10 Hct 41.1 % (42.0-52.0) L 04/15/22 09:10 MCV 89.7 fl (80-94) 04/15/22 09:10 MCH 28.8 pg (28.0-34.0) 04/15/22 09:10 MCHC 32.1 g/dL (30.0-36.0) 04/15/22 09:10 RDW 13.2 % (12.1-15.1) 04/15/22 09:10 Plt Count 173 10^3/cmm (130-400) 04/15/22 09:10 MPV 12.6 fL (7.4-10.4) H 04/15/22 09:10 Neut % (Auto) 72.3 % 04/15/22 09:10 Lymph % (Auto) 19.1 % 04/15/22 09:10 [place] % (Auto) 6.9 % 04/15/22 09:10 Eos % (Auto) 0.9 % 04/15/22 09:10 Baso % (Auto) 0.5 % 04/15/22 09:10 Neut # (Auto) 4.73 10^3/uL (1.8-7.7) 04/15/22 09:10 Lymph # (Auto) 1.3 10^3/uL (0.8-4.8) 04/15/22 09:10 [place] # (Auto) 0.5 10^3/uL (0.2-0.9) 04/15/22 09:10 Eos # (Auto) 0.1 10^3/uL (0.0-0.8) 04/15/22 09:10 Baso # (Auto) 0.0 10^3/uL (0.0-0.1) 04/15/22 09:10 Nucleated RBC % (auto) 0 % 04/15/22 09:10 Nucleated RBCs # 0.0 /100WBC 04/15/22 09:10 Sodium 140 mmol/L (136-145) 04/15/22 09:10 Potassium 3.6 mmol/L (3.5-5.1) 04/15/22 09:10 Chloride 103 mmol/L (98-107) 04/15/22 09:10 Carbon Dioxide 28 mmol/L (22-29) 04/15/22 09:10 Anion Gap 12.6 (5-19) 04/15/22 09:10 BUN 17 mg/dL (8-23) 04/15/22 09:10 Creatinine 1.0 mg/dL (0.7-1.2) 04/15/22 09:10 GFR Calculation Not Reportable 04/15/22 09:10 Glucose 112 mg/dL (65-115) 04/15/22 09:10 Calculated Osmolality 292 mOsm/kg (285-295) 04/15/22 09:10 Calcium 9.1 mg/dL (8.5-10.5) 04/15/22 09:10 Total Bilirubin 0.5 mg/dL (0.15-1.2) 04/15/22 09:10 AST 20 U/L (0-40) 04/15/22 09:10 ALT 26 U/L (0-41) 04/15/22 09:10 Alkaline Phosphatase 87 U/L (40-130) 04/15/22 09:10 Total Protein 6.7 g/dL (6.6-8.7) 04/15/22 09:10 Albumin 4.1 g/dL (3.5-5.2) 04/15/22 09:10 Globulin 2.6 g/dL (1.3-4.6) 04/15/22 09:10 Lipase 21 U/L (13-60) 04/15/22 09:10 Urine Color Straw (Yellow) 04/15/22 11:50 Urine Appearance Clear (CLEAR) 04/15/22 11:50 Urine pH 5 (5-7) 04/15/22 11:50 Ur Specific [place] 1.005 (1.005-1.030) 04/15/22 11:50 Urine Protein Neg (Negative) 04/15/22 11:50 Urine Glucose (UA) Norm (Normal) 04/15/22 11:50 Urine Ketones 1+ (Negative) H 04/15/22 11:50 Urine Blood Neg (Negative) 04/15/22 11:50 Urine Nitrate Negative (Negative) 04/15/22 11:50 Urine Bilirubin Neg (Negative) 04/15/22 11:50 Urine Urobilinogen Norm mg/dL (Negative) 04/15/22 11:50 Ur Leukocyte Esterase Negative (Negative) 04/15/22 11:50 Discharge Plan Discharge Patient Disposition: Home Clinical Impression: Enteritis Condition: Stable Prescriptions: No Action cholecalciferol (vitamin D3) 125 mcg (5,000 unit) capsule 125 mcg PO DAILY budesonide-formoterol [Symbicort] 160-4.5 mcg/actuation HFA aerosol inhaler 2 puff inhalation BID Qty: 10.2 3RF Rx Instructions: UNDER 340B metformin 500 mg tablet 1,000 mg PO DAILY mecobalamin (vitamin B12) 5,000 mcg tablet,disintegrating 5,000 mcg PO DAILY albuterol sulfate [ProAir HFA] 90 mcg/actuation HFA aerosol inhaler 2 puff INHALATION Q4H PRN (Reason: Shortness Of Breath) Qty: 8.5 3RF montelukast 10 mg tablet 10 mg PO DAILY lisinopril 20 mg tablet 20 mg PO BID metoprolol succinate 100 mg tablet extended release 24 hr 100 mg PO DAILY fluticasone propionate [Flonase Allergy Relief] 50 mcg/actuation spray,suspension 2 spray intranasal DAILY methenamine hippurate 1 gram tablet 1 g PO DAILY Rx Instructions: 1 pill daily with 1 g vitamin C each dose pantoprazole 40 mg Tablet,Delayed Release (Dr/Ec) 40 mg PO DAILY aspirin 81 mg Tablet,Chewable 81 mg PO DAILY ascorbic acid (vitamin C) [Vitamin C] 1,000 mg Tablet 1,000 mg PO DAILY venlafaxine 75 mg capsule,extended release 24hr 75 mg PO DAILY Rx Instructions: TAKES WITH 150MG TO =225MG venlafaxine 150 mg capsule,extended release 24hr 150 mg PO DAILY Rx Instructions: TAKES WITH 75MG TO =225MG chlorthalidone 25 mg tablet 25 mg PO DAILY amlodipine 10 mg tablet 10 mg PO DAILY carbamazepine 100 mg tablet,chewable 50 mg PO DAILY atorvastatin 40 mg Tablet 40 mg PO DAILY magnesium oxide 420 mg Tablet 420 mg PO DAILY zinc acetate 50 mg (zinc) Capsule 50 mg PO DAILY Zyrtec 10 mg Tablet 10 mg PO DAILY tamsulosin 0.4 mg capsule 0.8 mg PO DAILY finasteride 5 mg tablet 5 mg PO DAILY Discharge Orders: Discharge ED (Routine); Ordered 04/15/22 Ordered By: Wicho Vang Referrals: Shirley Oconnor PA [Primary Care Provider] - Discharge Diet: Advance as tolerated, Regular and Clear Liquid Discharge Activity: Resume usual activity Patient Instructions: Bowel Obstruction (ED), Enteritis (ED) Activity Restrictions/Additional Instructions: Follow-up with medical provider as directed in the next 24 to 48 hours. Clear liquid diet over the next 24 hours and after that slowly advance diet as tolerated. Continue taking xelg-wov-powgctm MiraLAX. Return to the ED if symptoms worsen or you are having vomiting and unable to keep fluids down. Please read and understand discharge instructions. Thank you for choosing [facility] for your healthcare needs today. Please realize this is an emergency room and that we are providing you with a medical screening exam and this may not be complete and all inclusive of all the testing and or work up that you may need to determine your ailment or severity of your illness. It is very important that you follow up as instructed or that you return to the Emergency Department should you have concerns or if your condition changes or worsens in any way. Coding Level of Care Code ED [employer] Supervisor for [employer] Exam Comprehensive Documented by User: Bayron Tucker DO 04/16/22 10:23 HPI - Abdominal Pain General: Chief Complaint: Abdominal Pain Stated Complaint: Possible bowel obstruction Time Seen by Provider: 04/15/22 08:31 [facility] ED PFSH: Medical History Acid reflux Bipolar 1 disorder Bowel obstruction BPH loc w urin obs/LUTS Diabetes mellitus Ear foreign body History of facial trauma History of transient ischemic attack (TIA) HTN (hypertension) Hx of intestinal obstruction Surgery Hypercholesteremia Recurrent UTI TMJ arthralgia Surgical History H/O partial resection of colon History of appendectomy History of cataract surgery left History of cholecystectomy History of facial fracture repair History of hand surgery History of neck surgery History of repair of rotator cuff History of sinus surgery S/P carotid endarterectomy Status post Dupuytren's fasciectomy Family History Father No problems noted. Mother , at age 9O CHF (congestive heart failure) Alzheimer disease Other CAD (coronary artery disease) Dementia Hyperlipidemia Hypertension Social History Smoking and tobacco status: former smoker Quit status (tobacco): has quit using tobacco Year quit tobacco: 1986 1- [id number] Second hand smoke exposure: Yes Smoking risk assessment/counseling performed?: Yes Alcohol intake: current Alcohol intake frequency: few times a month Lives independently: Yes Household members: spouse Housing: House Marital status: service: Yes branch: [employer] Current occupational status: retired Pets and animals: Yes History of recent travel: No Current gender identity: Male Course Vital Signs: Vital signs: Vital Signs Temperature 97.8 F 04/15/22 12:15 Pulse Rate 92 04/15/22 12:15 Respiratory Rate 18 04/15/22 12:15 Blood Pressure 156/84 04/15/22 12:15 Pulse Oximetry 96 04/15/22 12:15 MDM - Abdominal Pain Medical Decision Making Patient is a 76-year-old male comes to the ED with abdominal pain. Patient has a past medical history of COPD, hypertension, diabetes. He has a history of bowel obstructions and has been hospitalized multiple times for bowel obstructions and has surgical history of bowel resection. Symptoms started approximately 3 days ago. Patient is able to pass gas and is having some liquid stool as well. He is able to keep p.o. fluids down and no episodes of emesis. Vitals are stable. Patient appears nontoxic and in no acute distress or pain. He is some generalized abdominal tenderness throughout the abdomen. Rest of exam is benign. Labs were unremarkable. CT of abdomen pelvis showed small bowel enteritis and possibly the start of small bowel obstruction. I talked with Dr. Tucekr about patient case and he agreed that patient would be stable for discharge home and to start with outpatient management first with close follow-up within the next 1 to 2 days with his PCP. Patient was diagnosed with enteritis and was discharged home and told to follow-up with his PCP to have a repeat abdominal exam in the next 1 to 2 days. He was told to have a clear liquid diet and to continue using dcdx-htf-xmdiygh constipation medications such as MiraLAX. He was given strict return to ED precautions. Patient understood and agreed with plan. Chart reviewed and patient discussed with midlevel. Agree with assessment and plan. Lab Data : 04/15/22 09:10 04/15/22 09:10 Labs/Radiology: Radiology Impressions Abdomen/Pelvis CT 04/15/22 09:02 IMPRESSION: 1. Mild distal small bowel enteritis noted. Gradual transition to dilated mid small bowel concerning for possible developing small bowel obstruction. These findings are overall similar to prior exam in 2020. 2. Right-sided nephrolithiasis. Laboratory Results WBC 6.5 10^3/uL (4.0-10.0) 04/15/22 09:10 RBC 4.58 10^6/uL (4.1-5.3) 04/15/22 09:10 Hgb 13.2 g/dL (11.7-16.6) 04/15/22 09:10 Hct 41.1 % (42.0-52.0) L 04/15/22 09:10 MCV 89.7 fl (80-94) 04/15/22 09:10 MCH 28.8 pg (28.0-34.0) 04/15/22 09:10 MCHC 32.1 g/dL (30.0-36.0) 04/15/22 09:10 RDW 13.2 % (12.1-15.1) 04/15/22 09:10 Plt Count 173 10^3/cmm (130-400) 04/15/22 09:10 MPV 12.6 fL (7.4-10.4) H 04/15/22 09:10 Neut % (Auto) 72.3 % 04/15/22 09:10 Lymph % (Auto) 19.1 % 04/15/22 09:10 [place] % (Auto) 6.9 % 04/15/22 09:10 Eos % (Auto) 0.9 % 04/15/22 09:10 Baso % (Auto) 0.5 % 04/15/22 09:10 Neut # (Auto) 4.73 10^3/uL (1.8-7.7) 04/15/22 09:10 Lymph # (Auto) 1.3 10^3/uL (0.8-4.8) 04/15/22 09:10 [place] # (Auto) 0.5 10^3/uL (0.2-0.9) 04/15/22 09:10 Eos # (Auto) 0.1 10^3/uL (0.0-0.8) 04/15/22 09:10 Baso # (Auto) 0.0 10^3/uL (0.0-0.1) 04/15/22 09:10 Nucleated RBC % (auto) 0 % 04/15/22 09:10 Nucleated RBCs # 0.0 /100WBC 04/15/22 09:10 Sodium 140 mmol/L (136-145) 04/15/22 09:10 Potassium 3.6 mmol/L (3.5-5.1) 04/15/22 09:10 Chloride 103 mmol/L (98-107) 04/15/22 09:10 Carbon Dioxide 28 mmol/L (22-29) 04/15/22 09:10 Anion Gap 12.6 (5-19) 04/15/22 09:10 BUN 17 mg/dL (8-23) 04/15/22 09:10 Creatinine 1.0 mg/dL (0.7-1.2) 04/15/22 09:10 GFR Calculation Not Reportable 04/15/22 09:10 Glucose 112 mg/dL (65-115) 04/15/22 09:10 Calculated Osmolality 292 mOsm/kg (285-295) 04/15/22 09:10 Calcium 9.1 mg/dL (8.5-10.5) 04/15/22 09:10 Total Bilirubin 0.5 mg/dL (0.15-1.2) 04/15/22 09:10 AST 20 U/L (0-40) 04/15/22 09:10 ALT 26 U/L (0-41) 04/15/22 09:10 Alkaline Phosphatase 87 U/L (40-130) 04/15/22 09:10 Total Protein 6.7 g/dL (6.6-8.7) 04/15/22 09:10 Albumin 4.1 g/dL (3.5-5.2) 04/15/22 09:10 Globulin 2.6 g/dL (1.3-4.6) 04/15/22 09:10 Lipase 21 U/L (13-60) 04/15/22 09:10 Urine Color Straw (Yellow) 04/15/22 11:50 Urine Appearance Clear (CLEAR) 04/15/22 11:50 Urine pH 5 (5-7) 04/15/22 11:50 Ur Specific [place] 1.005 (1.005-1.030) 04/15/22 11:50 Urine Protein Neg (Negative) 04/15/22 11:50 Urine Glucose (UA) Norm (Normal) 04/15/22 11:50 Urine Ketones 1+ (Negative) H 04/15/22 11:50 Urine Blood Neg (Negative) 04/15/22 11:50 Urine Nitrate Negative (Negative) 04/15/22 11:50 Urine Bilirubin Neg (Negative) 04/15/22 11:50 Urine Urobilinogen Norm mg/dL (Negative) 04/15/22 11:50 Ur Leukocyte Esterase Negative (Negative) 04/15/22 11:50 Discharge Plan Discharge Patient Disposition: Home Clinical Impression: Enteritis Condition: Stable Prescriptions: No Action cholecalciferol (vitamin D3) 125 mcg (5,000 unit) capsule 125 mcg PO DAILY budesonide-formoterol [Symbicort] 160-4.5 mcg/actuation HFA aerosol inhaler 2 puff inhalation BID Qty: 10.2 3RF Rx Instructions: UNDER 340B metformin 500 mg tablet 1,000 mg PO DAILY mecobalamin (vitamin B12) 5,000 mcg tablet,disintegrating 5,000 mcg PO DAILY albuterol sulfate [ProAir HFA] 90 mcg/actuation HFA aerosol inhaler 2 puff INHALATION Q4H PRN (Reason: Shortness Of Breath) Qty: 8.5 3RF montelukast 10 mg tablet 10 mg PO DAILY lisinopril 20 mg tablet 20 mg PO BID metoprolol succinate 100 mg tablet extended release 24 hr 100 mg PO DAILY fluticasone propionate [Flonase Allergy Relief] 50 mcg/actuation spray,suspension 2 spray intranasal DAILY methenamine hippurate 1 gram tablet 1 g PO DAILY Rx Instructions: 1 pill daily with 1 g vitamin C each dose pantoprazole 40 mg Tablet,Delayed Release (Dr/Ec) 40 mg PO DAILY aspirin 81 mg Tablet,Chewable 81 mg PO DAILY ascorbic acid (vitamin C) [Vitamin C] 1,000 mg Tablet 1,000 mg PO DAILY venlafaxine 75 mg capsule,extended release 24hr 75 mg PO DAILY Rx Instructions: TAKES WITH 150MG TO =225MG venlafaxine 150 mg capsule,extended release 24hr 150 mg PO DAILY Rx Instructions: TAKES WITH 75MG TO =225MG chlorthalidone 25 mg tablet 25 mg PO DAILY amlodipine 10 mg tablet 10 mg PO DAILY carbamazepine 100 mg tablet,chewable 50 mg PO DAILY atorvastatin 40 mg Tablet 40 mg PO DAILY magnesium oxide 420 mg Tablet 420 mg PO DAILY zinc acetate 50 mg (zinc) Capsule 50 mg PO DAILY Zyrtec 10 mg Tablet 10 mg PO DAILY tamsulosin 0.4 mg capsule 0.8 mg PO DAILY finasteride 5 mg tablet 5 mg PO DAILY Discharge Orders: Discharge ED (Routine); Ordered 04/15/22 Ordered By: iWcho Vang Referrals: Shirley Oconnor PA [Primary Care Provider] - Discharge Diet: Advance as tolerated, Regular and Clear Liquid Discharge Activity: Resume usual activity Patient Instructions: Bowel Obstruction (ED), Enteritis (ED) Activity Restrictions/Additional Instructions: Follow-up with medical provider as directed in the next 24 to 48 hours. Clear liquid diet over the next 24 hours and after that slowly advance diet as tolerated. Continue taking ndor-ksi-nfrocvi MiraLAX. Return to the ED if symptoms worsen or you are having vomiting and unable to keep fluids down. Please read and understand discharge instructions. Thank you for choosing [facility] for your healthcare needs today. Please realize this is an emergency room and that we are providing you with a medical screening exam and this may not be complete and all inclusive of all the testing and or work up that you may need to determine your ailment or severity of your illness. It is very important that you follow up as instructed or that you return to the Emergency Department should you have concerns or if your condition changes or worsens in any way. Coding Level of Care Code ED [employer] Supervisor for [employer] Exam Comprehensive
--- NOTE | 2022-04-15 09:02 | CTR_ITS ---
PROCEDURE INFORMATION: Exam: CT Abdomen And Pelvis With Contrast Exam date and time: 04/15/2022 10:04 AM Age: 76 years old Clinical indication: Abdominal pain; Prior surgery; Surgery type: Appy, gb, bowel; Additional info: Abdominal pain, constipation, history of bowel obstructions and psh of bowel resection TECHNIQUE: Imaging protocol: Computed tomography of the abdomen and pelvis with contrast. Radiation optimization: All CT scans at this facility use at least one of these dose optimization techniques: automated exposure control; mA and/or kV adjustment per patient size (includes targeted exams where dose is matched to clinical indication); or iterative reconstruction. Contrast material: OMNI 350; Contrast volume: 100 ml; Contrast route: INTRAVENOUS (IV); COMPARISON: CT abdomen pelvis w con* [id number] 08/04/2020 9:40 AM RADIATION DOSE METRICS: Total DLP (mGy-cm): 716.12 FINDINGS: Liver: The liver is normal in size and contour. Gallbladder and bile ducts: The gallbladder is surgically absent. Pancreas: The pancreas appears normal. Spleen: The spleen appears normal. Adrenal glands: The adrenals appear normal. Kidneys and ureters: The left renal sinus is prominent. No hydroureter. No hydronephrosis. Trace mild bilateral perinephric fat stranding without significant change from prior exam. Punctate nonobstructing stone in the lower pole the right kidney. Stomach and bowel: The stomach appears unremarkable. Abnormal mid small bowel dilatation measuring up to 5.1 cm in diameter. Gradual tapering to a normal diameter of distal small bowel. No abrupt small bowel transition identified. Distal small bowel in the right lower quadrant demonstrates mild circumferential wall thickening, similar to prior exam. The large bowel loops are not abnormally dilated. Appendix: The appendix is surgically absent. Intraperitoneal space: Mild mesenteric fat stranding noted, similar to prior exam, likely related to enteritis. Vasculature: The aorta is nonaneurysmal. The IVC appears normal. Lymph nodes: There are no enlarged lymph nodes. Urinary bladder: Multiple small bladder diverticula again noted along the posterior left margin. Reproductive: Unremarkable as visualized. Bones/joints: Unremarkable. Soft tissues: Unremarkable. CT/CT abdomen pelvis w con* [id number] IMPRESSION: 1. Mild distal small bowel enteritis noted. Gradual transition to dilated mid small bowel concerning for possible developing small bowel obstruction. These findings are overall similar to prior exam in 2020. 2. Right-sided nephrolithiasis.
[2022-04-15 09:17] VITALS: BP 156/84; PULSE 92; RESP 18; TEMP 36.6; O2SAT 96
[2022-04-15] MEDS: sodium chloride 0.9% 500 ML 999 ML IV (09:23)
[2022-04-15 09:27] LABS: Basophils % 0.5 %; Eosinophils # 0.1 10^3/uL (0.0-0.8); Eosinophils % 0.9 %; Hematocrit 41.1 % (42.0-52.0); Hemoglobin 13.2 g/dL (11.7-16.6); Lymphocytes # 1.3 10^3/uL (0.8-4.8); Lymphocytes % 19.1 %; Mean Corpuscular HGB Conc 32.1 g/dL (30.0-36.0); Mean Corpuscular Hemoglobin 28.8 pg (28.0-34.0); Mean Corpuscular Volume 89.7 fl (80-94); Mean Platelet Volume 12.6 fL (7.4-10.4); Monocytes # 0.5 10^3/uL (0.2-0.9); Monocytes % 6.9 %; Neutrophils # 4.73 10^3/uL (1.8-7.7); Neutrophils % 72.3 %; Nucleated Red Blood Cells % 0 %; Platelet Count 173 10^3/cmm (130-400); Red Blood Count 4.58 10^6/uL (4.1-5.3); Red Cell Distribution Width 13.2 % (12.1-15.1); White Blood Count 6.5 10^3/uL (4.0-10.0)
[2022-04-15 09:42] LABS: Alanine Aminotransferase 26 U/L (0-41); Albumin Level 4.1 g/dL (3.5-5.2); Alkaline Phosphatase 87 U/L (40-130); Blood Urea Nitrogen 17 mg/dL (8-23); Calcium 9.1 mg/dL (8.5-10.5); Carbon Dioxide 28 mmol/L (22-29); Chloride 103 mmol/L (98-107); Creatinine Clr Calc Pharmacy 71.7504; Globulin 2.6 g/dL (1.3-4.6); Glucose 112 mg/dL (65-115); Lipase 21 U/L (13-60); Osmolality Calculated 292 mOsm/kg (285-295); Sodium 140 mmol/L (136-145); Total Bilirubin 0.5 mg/dL (0.15-1.2); Total Protein 6.7 g/dL (6.6-8.7)
[2022-04-15 09:59] LABS: Anion Gap 12.6 (5-19); Aspartate Amino Transferase 20 U/L (0-40); Potassium 3.6 mmol/L (3.5-5.1)
[2022-04-15] MEDS: iohexol 350 mg/mL 500 mL Btl (per mL) IV (10:06)
[2022-04-15 10:37] VITALS: BP 156/84; PULSE 92; RESP 18; TEMP 36.6; O2SAT 96
--- NOTE | 2022-04-15 10:42 | PC.PHAR ---
pt states he takes care of his own medications-pt states he takes the medications entered [facility] to compare what pt states he takes vs what medication [facility]-rx written 10/04/21 for symicort 160-4.5 2 puffs bid-pt states thinks [facility] may send [facility] for [facility] med [facility]
[2022-04-15 12:03] LABS: Add Urine Microscopic? NO; Bilirubin Urine Neg (Negative); Blood Urine Neg (Negative); Glucose Urine UA Norm (Normal); Ketones Urine 1+ (Negative); Leukocyte Esterase Urine Negative (Negative); Nitrate Urine Negative (Negative); Protein Urine Neg (Negative); Specific Gravity, Urine 1.005 (1.005-1.030); Urine Appearance Clear (CLEAR); Urine Color Straw (Yellow); Urobilinogen Urine Norm (Negative); pH Urine 5 (5-7)
[2022-04-15 12:04] LABS: Charge for UA Resulting for Rev
[2022-04-15 12:15] VITALS: BP 156/84; PULSE 92; RESP 18; TEMP 36.6; O2SAT 96
== END 2022-04-15 12:16 | disposition home or self-care (01) ==
PROVIDERS: Emergency Provider Physician Assistant; PCP Physician Assistant
DX: K52.9 Noninfective gastroenteritis and colitis, unspecified (principal); Z79.82 Long term (current) use of aspirin; Z79.84 Long term (current) use of oral hypoglycemic drugs; Z87.891 Personal history of nicotine dependence; E11.9 Type 2 diabetes mellitus without complications; Z86.73 Personal history of transient ischemic attack (TIA), and cerebral infarction without residual deficits; I10 Essential (primary) hypertension
CPT/HCPCS: 74177; 80053; 81003; 83690; 85025; 96360; 99285; J7040

== ENCOUNTER → 2022-04-22 14:20 | Outpatient (BNVA) | payer MEDICARE, OTHER, SELFPAY | PROVIDERS: PCP Physician Assistant; Visit Provider Otolaryngology | DX: Z87.891 Personal history of nicotine dependence (principal); H69.83 Other specified disorders of Eustachian tube, bilateral | CPT/HCPCS: 99213 ==

== ENCOUNTER → 2022-09-10 10:42 | Outpatient (BNVA) | payer MEDICARE, SELFPAY | PROVIDERS: PCP Family Medicine; Visit Provider Urology | DX: N40.1 Benign prostatic hyperplasia with lower urinary tract symptoms (principal); N39.0 Urinary tract infection, site not specified | CPT/HCPCS: 51741; 51798; 81003; 99213 ==

== ENCOUNTER 2023-11-02 16:09 | Emergency (ER) | payer OTHER, MEDICARE, SELFPAY ==
[2023-11-02] VITALS (8 sets, daily range): BP systolic 153–178; BP diastolic 76–94; PULSE 60–67; RESP 16–22; TEMP 36.6; O2SAT 92–98; BMI 28.5
--- NOTE | 2023-11-02 16:26 | ECG_ITS ---
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 Measurements Intervals [place] Rate: 68 P: 66 DE: 162 QRS: 71 QRSD: 106 T: 63 QT: 415 QTc: 441 Interpretive Statements SINUS RHYTHM Compared to ECG 08/28/2020 10:01:34 No significant changes Electronically Signed On 11-03-2023 8:34:26 CDT by Soy Brown M.D. [id number]
[2023-11-02 17:31] LABS: Basophils % 0.5 %; Eosinophils # 0.2 10^3/uL (0.0-0.8); Eosinophils % 3.4 %; Hematocrit 42.5 % (37-53); Lymphocytes # 1.3 10^3/uL (0.8-4.8); Mean Corpuscular HGB Conc 33.2 g/dL (30-55); Mean Corpuscular Volume 90.4 fl (82-101); Mean Platelet Volume 12.7 fL (7.4-10.4); Monocytes # 0.7 10^3/uL (0.2-0.9); Monocytes % 10.2 %; Neutrophils % 65.7 %; Nucleated Red Blood Cells % 0 %; Platelet Count 156 10^3/cmm (157-399); Red Cell Distribution Width 13.2 % (12.1-15.1); White Blood Count 6.39 10^3/uL (3.29-11.43)
[2023-11-02 17:58] LABS: Alanine Aminotransferase 13 U/L (0-41); Albumin Level 4.2 g/dL (3.5-5.2); Alkaline Phosphatase 88 U/L (40-130); Anion Gap 12.8 (5-19); Aspartate Amino Transferase 10 U/L (0-40); Blood Urea Nitrogen 15 mg/dL (8-23); Calcium 8.9 mg/dL (8.5-10.5); Carbon Dioxide 27 mmol/L (22-29); Chloride 106 mmol/L (98-107); Creatinine Clr Calc Pharmacy 71.0276; Globulin 2.9 g/dL (1.3-4.6); Glucose 81 mg/dL (65-115); Magnesium 2.1 mg/dL (1.7-2.3); NT Pro B Type Natriuretic Pept 342 pg/mL (0-450); Osmolality Calculated 294 mOsm/kg (285-295); Potassium 3.8 mmol/L (3.5-5.1); Sodium 142 mmol/L (136-145); Total Bilirubin 0.2 mg/dL (0.15-1.2); Total Protein 7.1 g/dL (6.6-8.7)
--- NOTE | 2023-11-02 18:28 | CTR_ITS ---
PROCEDURE INFORMATION: Exam: CTA Head With Contrast, Arteriography Exam date and time: 11/02/2023 6:38 PM Age: 78 years old Clinical indication: Dizziness and giddiness; Prior surgery; Surgery date: 6+ months; Surgery type: Mandibular fixation. Endarterectomy; Patient HX: C/O multiple episodes of dizziness and presyncope. History of CVA and carotid stenosis. ; Additional info: TIA like symptoms, HX of carotid stenosis TECHNIQUE: Imaging protocol: Computed tomographic angiography of the head with contrast. Exam focused on the arteries. 3D rendering (Not supervised by radiologist): MIP and/or 3D reconstructed images were created by the technologist. Radiation optimization: All CT scans at this facility use at least one of these dose optimization techniques: automated exposure control; mA and/or kV adjustment per patient size (includes targeted exams where dose is matched to clinical indication); or iterative reconstruction. Contrast material: OMNI 350; Contrast volume: 100 ml; Contrast route: INTRAVENOUS (IV); COMPARISON: CT head wo con* [id number] 11/02/2023 6:36 PM RADIATION DOSE METRICS: Total DLP (mGy-cm): 496.93 FINDINGS: ANTERIOR CIRCULATION: Right internal carotid artery: Patent. Right middle cerebral artery: Patent. Right anterior cerebral artery: Patent. Left internal carotid artery: Patent. Left middle cerebral artery: Patent. Left anterior cerebral artery: Patent. POSTERIOR CIRCULATION: Right vertebral artery: Patent. Left vertebral artery: Patent. Basilar artery: Patent. Right posterior cerebral artery: Patent. Left posterior cerebral artery: Patent. PROCEDURE INFORMATION: Exam: CTA Neck With Contrast Exam date and time: 11/02/2023 6:38 PM Age: 78 years old Clinical indication: Dizziness and giddiness; Prior surgery; Surgery date: 6+ months; Surgery type: Mandibular fixation. Endarterectomy; Patient HX: C/O multiple episodes of dizziness and presyncope. History of CVA and carotid stenosis. ; Additional info: TIA like symptoms, HX of carotid stenosis TECHNIQUE: Imaging protocol: Computed tomographic angiography of the neck with contrast. Exam focused on the cervical segments of the vasculature. 3D rendering (Not supervised by radiologist): MIP and/or 3D reconstructed images were created by the technologist. Radiation optimization: All CT scans at this facility use at least one of these dose optimization techniques: automated exposure control; mA and/or kV adjustment per patient size (includes targeted exams where dose is matched to clinical indication); or iterative reconstruction. Contrast material: OMNI 350; Contrast volume: 100 ml; Contrast route: INTRAVENOUS (IV); COMPARISON: CT angio headneck* [id number] 08/28/2020 12:20 PM RADIATION DOSE METRICS: Total DLP (mGy-cm): 496.93 FINDINGS: Right common carotid artery: Patent. No evidence of hemodynamically significant stenosis. Right internal carotid artery: Patent. Mild-moderate approximately 50% narrowing of the proximal right internal carotid artery secondary to predominantly noncalcified atherosclerotic plaque there are clips, possibly reflecting prior endarterectomy. Right external carotid artery: Patent. Left common carotid artery: Patent. No evidence of hemodynamically significant stenosis. Left internal carotid artery: Patent. Mild approximately 30% narrowing of the proximal left internal carotid artery secondary to noncalcified atherosclerotic plaque. Left external carotid artery: Patent. Right vertebral artery: Patent. Left vertebral artery: Patent. Soft tissues: No gross soft tissue abnormality. No evidence of fluid collection or hematoma. Bones/joints: No evidence of acute fracture or subluxation of the cervical spine. CT/CT angio headne* [id number] IMPRESSION: 1. No evidence of large vessel occlusion or acute thrombosis in the head. IMPRESSION: 1. No evidence of acute thrombosis in the neck. 2. Mild-moderate narrowing of the proximal internal carotid arteries secondary to noncalcified atherosclerotic plaque, right worse than left. REFERENCES: NASCET CRITERIA. The degree of stenosis in the cervical segment of the internal carotid artery is based on NASCET criteria. Normal is no stenosis. Mild is less than 50% stenosis. Moderate is 50-69% stenosis. Severe is 70% to 99% stenosis. Total occlusion is no detectable patent lumen.
--- NOTE | 2023-11-02 18:29 | CTR_ITS ---
PROCEDURE INFORMATION: Exam: CT Head Without Contrast Exam date and time: 11/02/2023 6:36 PM Age: 78 years old Clinical indication: Patient HX: Multiple episodes of dizziness and presyncope. History of TIA and carotid stenosis. ; Additional info: Having dizziness, TIA like symptoms TECHNIQUE: Imaging protocol: Computed tomography of the head without contrast. Radiation optimization: All CT scans at this facility use at least one of these dose optimization techniques: automated exposure control; mA and/or kV adjustment per patient size (includes targeted exams where dose is matched to clinical indication); or iterative reconstruction. COMPARISON: CT angio headneck* [id number] 08/28/2020 12:20 PM RADIATION DOSE METRICS: Total DLP (mGy-cm): 1072.18 FINDINGS: Brain: No evidence of intra-axial or extra-axial hemorrhage. No mass effect or midline shift. Right frontoparietal infarct. Basilar cisterns are patent. Cerebral ventricles: No hydrocephalus. Paranasal sinuses: The visualized paranasal sinuses are well aerated. Mastoid air cells: The visualized mastoids and middle ears are clear. Bones: Unremarkable. No acute fracture. Soft tissues: No gross soft tissue abnormality. CT/CT head wo con* [id number] IMPRESSION: 1. No acute intracranial abnormality.
[2023-11-02] MEDS: iohexol 350 mg/mL 500 mL Btl (per mL) IV (18:39)
[2023-11-02] MEDS: hyDRALAzine 20 mg/mL INJ 1 mL 10 MG IVP (19:03)
--- NOTE | 2023-11-02 20:17 | ED_ITS ---
HPI - Dizziness 2 General: Chief Complaint: Dizziness Stated Complaint: dizzy/sweating Time Seen by Provider: 11/02/23 16:36 Source: patient and family Limitations: no limitations History of Present Illness: HPI Narrative: Patient comes in for episodes of near syncope may increasing over the past few days. Also notes concern for his hypertension. Patient reports it has more of a off-balance dizziness than a room spinning dizziness. Has had maybe some episodes of both. There is also some discussion of going to see somebody because I thought his eustachian tube might be clogged. For the blood pressure being up the past few days they did try dose of chlorthalidone and just half a tablets or 12.5. However does not appear to be helping. Of note reviewing patient's med list he is on amlodipine, metoprolol and Tegretol for a long time now which could definitely be causing some AV liliane blockade. He is also on metoprolol and Flomax which could be causing some issues with alpha antagonism and beta antagonism. Review of Systems 2 General: Reports: 10 or more systems reviewed and unremarkable except in HPI and below PFSH ED 2 PFSH: Medical History Diabetes mellitus Hx of intestinal obstruction Surgery Ear foreign body BPH loc w urin obs/LUTS Recurrent UTI HTN (hypertension) Hypercholesteremia Bipolar 1 disorder TMJ arthralgia Acid reflux History of transient ischemic attack (TIA) History of facial trauma Bowel obstruction Surgical History History of cataract surgery left H/O partial resection of colon S/P carotid endarterectomy History of hand surgery Status post Dupuytren's fasciectomy History of sinus surgery History of repair of rotator cuff History of appendectomy History of cholecystectomy History of facial fracture repair History of neck surgery Family History Father No problems noted. Mother , at age 9O Congestive heart failure (CHF) Alzheimer disease Other CAD (coronary artery disease) Dementia Hyperlipidemia Hypertension Social History Smoking and tobacco/nicotine status: former use of tobacco/nicotine Quit status (tobacco/nicotine): has quit using Year quit tobacco: 1986 1- [id number] Second hand smoke exposure: Yes Alcohol intake: current Alcohol intake frequency: few times a month Substance/Drug Use: never Lives independently: Yes Household members: spouse Housing: House Marital status: service: Yes branch: [employer] Current occupational status: retired Pets and animals: Yes Do you think of yourself as: Straight/Heterosexual Current gender identity: Male Physical Exam 2 Const: COMMON NORMALS: no acute distress, average body habitus, patient oriented x3, healthy appearing, alert and well nourished GENERAL APPEARANCE: well kempt and well developed HENMT: COMMON NORMALS: normocephalic, atraumatic, external ears normal and moist oral mucous membranes HEAD & SCALP: normocephalic and atraumatic E XTERNAL EAR: Yes external ears normal Eye: COMMON NORMALS: Equal, round and reactive pupils present, EOMs intact bilaterally and conjunctivae normal CONJUNCTIVA: Yes conjunctivae normal P UPIL: Yes Equal, round and reactive pupils present Neck/C-Spine: COMMON NORMALS: full ROM, no lymphadenopathy and supple Chest: CHEST: Yes Symmetrical chest wall rise and No Surgical scars present (Chest) Resp: COMMON NORMALS: normal respiratory effort, No retractions, No use of accessory muscles and clear to auscultation bilaterally AUSCULTATION: clear to auscultation bilaterally Cardio: COMMON NORMALS: regular rate, regular rhythm, S1 normal heart sound present, S2 normal heart sound present, No gallops present (Cardio), No clicks present (Cardio), No murmurs present (Cardio) and No rub (Cardio) RATE: r egular rate RHYTHM: regular rhythm HEART SOUNDS: S1 normal heart sound present, S2 normal heart sound present and no murmurs PERIPHERAL PULSES: o ther (Radial pulses 2+ and symmetric) GI: COMMON NORMALS: Soft to palpation, non-tender and no masses INSPECTION: No abdominal distension PALPATION: Yes Soft to palpation, No Guarding due to palpation present (GI) and No Rebound tenderness present : COMMON NORMALS: Yes no CVA tenderness BLADDER/KIDNEY EXAM: Yes no CVA tenderness Back/Pelvis: COMMON NORMALS: no CVA tenderness Extremity: COMMON NORMALS: normal to inspection, full ROM, capillary refill normal and no clubbing, cyanosis or edema Neuro: COMMON NORMALS: patient oriented x3 SENSORIUM/ORIENTATION: Yes alert Psych: APPEARANCE: Yes well kempt Skin: COMMON NORMALS: no rashes or lesions noted, no wounds, turgor normal and no jaundice GENERAL SKIN EXAM: no rashes or lesions noted and turgor normal Course 2 Vital Signs: Vital signs: Vital Signs Temperature 98 F 11/02/23 16:23 Pulse Rate 67 11/02/23 20:00 Respiratory Rate 21 H 11/02/23 20:00 Blood Pressure 174/91 11/02/23 20:00 Pulse Oximetry 96 11/02/23 20:00 Oxygen Delivery Me thod Room Air 11/02/23 17:05 MDM - Dizziness Medical Decision Making Tried to reassure family regarding his blood pressure and that regarding the blood pressure he was fairly asymptomatic but more concerning is the near syncope and the possibility of falls and fractures and other injuries. Labs reviewed and are unremarkable thankfully. CT of the head is unremarkable. CTA of the neck I did not personally review the radiology reviews it and reports only mild to moderate narrowing of the carotids. They also report normal CT head on rads read as well. Initial EKG was done at 1621 shows sinus rate of 68 no prolonged intervals no ST elevation or depression. Another EKG was done at 1651 which shows sinus rate of 62 no prolonged intervals no ST elevation or depression. Normal axis on both. Discussed with family at length regarding possible polypharmacy and agreed in holding off on Flomax for 2 days then restarting at half the current doses. Follow-up with primary care in 1 to 2 weeks. Differential Diagnosis Likely orthostatic hypotension Medical Records I reviewed the patient's medical records. Lab Data I reviewed the patient's lab results. 11/02/23 17:20 11/02/23 17:20 Radiology Impressions Head/Neck CTA 11/02/23 18:28 IMPRESSION: 1. No evidence of large vessel occlusion or acute thrombosis in the head. IMPRESSION: 1. No evidence of acute thrombosis in the neck. 2. Mild-moderate narrowing of the proximal internal carotid arteries secondary to noncalcified atherosclerotic plaque, right worse than left. REFERENCES: NASCET CRITERIA. The degree of stenosis in the cervical segment of the internal carotid artery is based on NASCET criteria. Normal is no stenosis. Mild is less than 50% stenosis. Moderate is 50-69% stenosis. Severe is 70% to 99% stenosis. Total occlusion is no detectable patent lumen. Head CT 11/02/23 18:29 IMPRESSION: 1. No acute intracranial abnormality. Laboratory Results WBC 6.39 10^3/uL (3.29-11.43) 11/02/23 17:20 RBC 4.70 10^6/uL (3.85-5.65) 11/02/23 17:20 Hgb 14.10 g/dL (11.27-16.99) 11/02/23 17:20 Hct 42.5 % (37-53) 11/02/23 17:20 MCV 90.4 fl (82-101) 11/02/23 17:20 MCH 30.0 pg (27-33) 11/02/23 17:20 MCHC 33.2 g/dL (30-55) 11/02/23 17:20 RDW 13.2 % (12.1-15.1) 11/02/23 17:20 Plt Count 156 10^3/cmm (157-399) L 11/02/23 17:20 MPV 12.7 fL (7.4-10.4) H 11/02/23 17:20 Neut % (Auto) 65.7 % 11/02/23 17:20 Lymph % (Auto) 20.0 % 11/02/23 17:20 [place] % (Auto) 10.2 % 11/02/23 17:20 Eos % (Auto) 3.4 % 11/02/23 17:20 Baso % (Auto) 0.5 % 11/02/23 17:20 Neut # (Auto) 4.20 10^3/uL (1.8-7.7) 11/02/23 17:20 Lymph # (Auto) 1.3 10^3/uL (0.8-4.8) 11/02/23 17:20 [place] # (Auto) 0.7 10^3/uL (0.2-0.9) 11/02/23 17:20 Eos # (Auto) 0.2 10^3/uL (0.0-0.8) 11/02/23 17:20 Baso # (Auto) 0.0 10^3/uL (0.0-0.1) 11/02/23 17:20 Nucleated RBC % (auto) 0 % 11/02/23 17:20 Nucleated RBCs # 0.0 /100WBC 11/02/23 17:20 Sodium 142 mmol/L (136-145) 11/02/23 17:20 Potassium 3.8 mmol/L (3.5-5.1) 11/02/23 17:20 Chloride 106 mmol/L (98-107) 11/02/23 17:20 Carbon Dioxide 27 mmol/L (22-29) 11/02/23 17:20 Anion Gap 12.8 (5-19) 11/02/23 17:20 BUN 15 mg/dL (8-23) 11/02/23 17:20 Creatinine 1.0 mg/dL (0.7-1.2) 11/02/23 17:20 GFR Calculation Not Reportable 11/02/23 17:20 Glucose 81 mg/dL (65-115) 11/02/23 17:20 Calculated Osmolality 294 mOsm/kg (285-295) 11/02/23 17:20 Calcium 8.9 mg/dL (8.5-10.5) 11/02/23 17:20 Magnesium 2.1 mg/dL (1.7-2.3) 11/02/23 17:20 Total Bilirubin 0.2 mg/dL (0.15-1.2) 11/02/23 17:20 AST 10 U/L (0-40) 11/02/23 17:20 ALT 13 U/L (0-41) 11/02/23 17:20 Alkaline Phosphatase 88 U/L (40-130) 11/02/23 17:20 NT-Pro-B Natriuret Pep 342 pg/mL (0-450) 11/02/23 17:20 Total Protein 7.1 g/dL (6.6-8.7) 11/02/23 17:20 Albumin 4.2 g/dL (3.5-5.2) 11/02/23 17:20 Globulin 2.9 g/dL (1.3-4.6) 11/02/23 17:20 All radiology interpretation(s) finalized by discharge ED provider radiology interpretation(s): see MDM discussion Discharge Plan Discharge Patient Disposition: Home Clinical Impression: Hypertension, Near syncope, Orthostatic dizziness Condition: Stable Prescriptions: New hydralazine 25 mg tablet 25 mg PO BID PRN (Reason: Systolic >200 or diastolic >110) Qty: 20 0RF No Action cholecalciferol (vitamin D3) 125 mcg (5,000 unit) capsule 125 mcg PO DAILY budesonide-formoterol [Symbicort] 160-4.5 mcg/actuation HFA aerosol inhaler 2 puff inhalation BID Qty: 10.2 3RF Rx Instructions: UNDER 340B metformin 500 mg tablet 1,000 mg PO DAILY mecobalamin (vitamin B12) 5,000 mcg tablet,disintegrating 5,000 mcg PO DAILY albuterol sulfate [ProAir HFA] 90 mcg/actuation HFA aerosol inhaler 2 puff INHALATION Q4H PRN (Reason: Shortness Of Breath) Qty: 8.5 3RF montelukast 10 mg tablet 10 mg PO DAILY lisinopril 20 mg tablet 20 mg PO BID metoprolol succinate 100 mg tablet extended release 24 hr 100 mg PO DAILY fluticasone propionate [Flonase Allergy Relief] 50 mcg/actuation spray,suspension 2 spray intranasal DAILY methenamine hippurate 1 gram tablet 1 g PO DAILY Rx Instructions: 1 pill daily with 1 g vitamin C each dose pantoprazole 40 mg Tablet,Delayed Release (Dr/Ec) 40 mg PO DAILY ascorbic acid (vitamin C) [Vitamin C] 1,000 mg Tablet 1,000 mg PO DAILY venlafaxine 75 mg capsule,extended release 24hr 75 mg PO DAILY Rx Instructions: TAKES WITH 150MG TO =225MG venlafaxine 150 mg capsule,extended release 24hr 150 mg PO DAILY Rx Instructions: TAKES WITH 75MG TO =225MG chlorthalidone 25 mg tablet 25 mg PO DAILY amlodipine 10 mg tablet 10 mg PO DAILY carbamazepine 100 mg tablet,chewable 50 mg PO DAILY atorvastatin 40 mg Tablet 40 mg PO DAILY magnesium oxide 420 mg Tablet 420 mg PO DAILY zinc acetate 50 mg (zinc) Capsule 50 mg PO DAILY Zyrtec 10 mg Tablet 10 mg PO DAILY tamsulosin 0.4 mg capsule 0.8 mg PO DAILY finasteride 5 mg tablet 5 mg PO DAILY Discharge Orders: Discharge ED (Routine); Ordered 11/02/23 Ordered By: You Ventura Referrals: Naz Fisher MD [Primary Care Provider] - Discharge Diet: Usual diet Discharge Activity: Resume usual activity Patient Instructions: Syncope (ED) Activity Restrictions/Additional Instructions: Stop the Flomax until Friday. Then start back at only 1 tablet which should be 0.4 mg daily. If you see improvement over the next 2 days of the lightheaded episodes and then it starts back. Stop the Flomax and contact his primary care. I do encourage you to follow-up with your primary care in the next 1 to 2 weeks regardless. I also prescribed you some hydralazine tablets to use when the blood pressure is up too high. Please check it twice and make sure that is remaining that high before giving. When she give the hydralazine and will gradually work over the next 3 to 4 hours. He will have a gradual onset so as not to drop the blood pressure too fast and will keep it from getting higher. CT of the carotids showed a 30% stenosis of the left and 50% stenosis of the right to looking quite good and stable since previous surgical intervention. Other possibilities for causing his dizziness with a combination of metoprolol amlodipine and long-term Tegretol. This commendation could be causing some AV liliane blockage. Otherwise it could be the alpha blockade in the beta-blockade secondary to the Flomax. Coding Level of Care Code ED Touch Up Painter Hand for Katya Craft
[2023-11-02] MEDS: hyDRALAzine 25 mg Tablet PO (20:44)
== END 2023-11-02 20:46 | disposition home or self-care (01) ==
PROVIDERS: Emergency Provider Emergency Medicine; PCP Family Medicine
DX: I95.1 Orthostatic hypotension (principal); I10 Essential (primary) hypertension; Z79.84 Long term (current) use of oral hypoglycemic drugs; Z87.891 Personal history of nicotine dependence; E11.9 Type 2 diabetes mellitus without complications; Z86.73 Personal history of transient ischemic attack (TIA), and cerebral infarction without residual deficits
CPT/HCPCS: 70450; 70496; 70498; 80053; 83735; 83880; 85025; 93005; 96374; 99285; J0360; Q9967

== ENCOUNTER 2023-11-13 11:03 | Emergency (ER) | payer OTHER, MEDICARE, SELFPAY ==
[2023-11-13 11:13] VITALS: BP 170/71; PULSE 68; RESP 16; TEMP 36.6; O2SAT 94
[2023-11-13 11:31] VITALS: BP 174/98; BP 176/94; BP 179/90; PULSE 65; PULSE 71; PULSE 75
--- NOTE | 2023-11-13 11:31 | ECG_ITS ---
[facility] Test Date: 2023-11-13 Pat Name: Mario Simon Department: Room: Gender: Male Design Lead: : 1945 Requested By: Bayron Irene Order Number: [id number] Ana MD: Julius Angel M.D. Measurements Intervals [place] Rate: 66 P: 51 [place]: 134 QRS: 26 QRSD: 99 T: 47 QT: 400 QTc: 420 Interpretive Statements SINUS RHYTHM WITH SINUS ARRHYTHMIA Compared to ECG 11/02/2023 16:21:05 No significant changes Electronically Signed On 11-13-2023 12:20:58 CDT by Julius Angel M.D. [id number]
--- NOTE | 2023-11-13 11:31 | XRR_ITS ---
PROCEDURE INFORMATION: Exam: XR Chest Exam date and time: 11/13/2023 11:49 AM Age: 78 years old Clinical indication: Cough and dyspnea; Additional info: Dyspnea/cough TECHNIQUE: Imaging protocol: Radiologic exam of the chest. Views: 1 view. COMPARISON: CR XR chest 2V* [id number] 09/05/2021 11:44 AM FINDINGS: Lungs: Asymmetric left basilar airspace disease. Pleural spaces: No significant pleural effusion. Heart/Mediastinum: No cardiomegaly. Bones/joints: Osteopenia and degenerative change. Right rotator cuff repair. XR/XR chest 1V portable [id number] IMPRESSION: Asymmetric left basilar airspace disease.
[2023-11-13 11:51] LABS: Basophils % 0.6 %; Eosinophils # 0.2 10^3/uL (0.0-0.8); Eosinophils % 3.1 %; Hematocrit 43.3 % (37-53); Lymphocytes # 1.5 10^3/uL (0.8-4.8); Mean Corpuscular HGB Conc 32.3 g/dL (30-55); Mean Corpuscular Hemoglobin 29.3 pg (27-33); Mean Corpuscular Volume 90.6 fl (82-101); Mean Platelet Volume 12.7 fL (7.4-10.4); Monocytes # 0.6 10^3/uL (0.2-0.9); Monocytes % 8.8 %; Neutrophils # 4.19 10^3/uL (1.8-7.7); Neutrophils % 64.3 %; Nucleated Red Blood Cells % 0 %; Platelet Count 171 10^3/cmm (157-399); Red Blood Count 4.78 10^6/uL (3.85-5.65); Red Cell Distribution Width 12.6 % (12.1-15.1); White Blood Count 6.51 10^3/uL (3.29-11.43)
--- NOTE | 2023-11-13 12:02 | PC.PHAR ---
[facility] 11/13/23 12:02PM
[2023-11-13 12:08] LABS: Alanine Aminotransferase 15 U/L (0-41); Albumin Level 4.4 g/dL (3.5-5.2); Alkaline Phosphatase 84 U/L (40-130); Aspartate Amino Transferase 13 U/L (0-40); Blood Urea Nitrogen 17 mg/dL (8-23); Calcium 9.3 mg/dL (8.5-10.5); Carbon Dioxide 26 mmol/L (22-29); Chloride 102 mmol/L (98-107); Creatinine Clr Calc Pharmacy 79.0985; Globulin 2.4 g/dL (1.3-4.6); Glucose 125 mg/dL (65-115); Osmolality Calculated 291 mOsm/kg (285-295); Sodium 139 mmol/L (136-145); Total Bilirubin 0.4 mg/dL (0.15-1.2); Total Protein 6.8 g/dL (6.6-8.7); Troponin(5th) Baseline 13 ng/L (0-15)
--- NOTE | 2023-11-13 12:12 | ED_ITS ---
HPI - Dizziness 2 General: Chief Complaint: Dizziness Stated Complaint: Dizziness, Headache Time Seen by Provider: 11/13/23 11:26 Source: patient Mode of arrival: ambulatory History of Present Illness: HPI Narrative: 78-year-old male presents emergency room with dizziness and headache unsteady gait this been going on for the last 2 weeks he feels very wobbly. In discussing with him he does not have any true vertiginous symptoms he was here few days ago had a CT of his head and a CTA of his head and neck both of which were negative he has no focal neurologic deficits he has not had any vision changes speech or swallowing. No history of coronary disease or previous stroke he does have a remote history of a crushing head injury several years ago. This resulted in a prolonged ER stay there are several facial fractures which required instrumentation to fix. MD elicited complaint: dizziness Timing: intermittent Severity: moderate Description: sense of movement and lightheadedness History of similar symptoms: Yes Exacerbating factors: nothing Relieving factors: nothing Associated symptoms: Denies abnormal vaginal bleeding, change in hearing, chest pain, chills, cough, diaphoresis, ear discharge, ear pressure, fevers/chills, headache(s), malaise, nausea, nasal congestion, palpitations, rash, short of breath, syncope, tinnitus, vomiting or weakness Associated neuro symptoms: Deny confusion, difficulty speaking, dysphagia, diplopia, extremity weakness, facial numbness, facial weakness, gait changes, numbness in extremities or visual changes Review of Systems 2 Const: Denies: fever(s), chills, malaise or diaphoresis ENMT: Denies: ear discharge, change in hearing, tinnitus or nasal congestion Card: Denies: chest pain, palpitations or syncope Resp: Denies: dyspnea GI: Denies: abdominal pain, nausea, vomiting or dysphagia : Denies: dysuria, urinary frequency or urinary urgency Musc: Denies: neck pain or back pain Skin/Breast: Denies: rash Neuro: Denies: headache(s), numbness in extremities or confusion PFSH ED 2 PFSH: Medical History Diabetes mellitus Hx of intestinal obstruction Surgery Ear foreign body BPH loc w urin obs/LUTS Recurrent UTI HTN (hypertension) Hypercholesteremia Bipolar 1 disorder TMJ arthralgia Acid reflux History of transient ischemic attack (TIA) History of facial trauma Bowel obstruction Surgical History History of cataract surgery left H/O partial resection of colon S/P carotid endarterectomy History of hand surgery Status post Dupuytren's fasciectomy History of sinus surgery History of repair of rotator cuff History of appendectomy History of cholecystectomy History of facial fracture repair History of neck surgery Family History Father No problems noted. Mother , at age 9O Congestive heart failure (CHF) Alzheimer disease Other CAD (coronary artery disease) Dementia Hyperlipidemia Hypertension Social History Smoking and tobacco/nicotine status: former use of tobacco/nicotine Quit status (tobacco/nicotine): has quit using Year quit tobacco: 1986 1- [id number] Second hand smoke exposure: Yes Alcohol intake: current Alcohol intake frequency: few times a month Substance/Drug Use: never Lives independently: Yes Household members: spouse Housing: House Marital status: service: Yes branch: [employer] Current occupational status: retired Pets and animals: Yes Do you think of yourself as: Straight/Heterosexual Current gender identity: Male Physical Exam 2 Const: GENERAL APPEARANCE: cooperative and comfortable O RIENTATION/CONSCIOUSNESS: Yes awake, Yes oriented to person, Yes oriented to place and Yes oriented to time HENMT: COMMON NORMALS: normocephalic, atraumatic and hearing grossly normal bilaterally HEAD & SCALP: normocephalic and atraumatic Resp: COMMON NORMALS: normal respiratory effort, No retractions, No use of accessory muscles and clear to auscultation bilaterally AUSCULTATION: clear to auscultation bilaterally Cardio: COMMON NORMALS: regular rate, regular rhythm and No murmurs present (Cardio) RATE: regular rate RHYTHM: regular rhythm GI: COMMON NORMALS: Soft to palpation and No hepatosplenomegaly present A USCULTATION: Yes normoactive bowel sounds PALPATION: Yes Soft to palpation, No Tenderness to palpation present (GI), No Guarding due to palpation present (GI) and Yes No hepatosplenomegaly present Extremity: COMMON NORMALS: normal to inspection, capillary refill normal, no clubbing, cyanosis or edema, no calf tenderness and no pedal edema OTHER: NIH 0. Patient mildly ataxic with walking is broad-based flat-footed gait normal [id number] and [id number] Neuro: SENSORIUM/ORIENTATION: Yes oriented to person, Yes oriented to place and Yes oriented to time Skin: COMMON NORMALS: no rashes or lesions noted GENERAL SKIN EXAM: no rashes or lesions noted Course 2 Vital Signs: Vital signs: Vital Signs Temperature 97.8 F 11/13/23 11:13 Pulse Rate 63 11/13/23 14:54 Respiratory Rate 17 11/13/23 14:54 Blood Pressure 158/91 11/13/23 14:54 Pulse Oximetry 97 11/13/23 14:54 [facility] - Dizziness Medical Decision Making Patient has actually ataxia not really vertigo. There is no cardiac aspect of this. He does have previous CT of the head as well as CTA of the head and neck both of which were unremarkable. I discussed with neurologist on-call he agrees with plan will be to discharge patient home he will see the patient early next week for consultation we will set him up for an MRI of the head with and without as well as an MRI of the inner ear canal to evaluatE. He does have a previous head injury several years ago that may play a role in this he had multiple facial fractures evidently. Discharge home with meclizine. He has no focal neurologic deficit at this time so CT was not repeated. Medical Records I reviewed the patient's medical records. Lab Data I reviewed the patient's lab results. 11/13/23 11:42 11/13/23 11:42 Radiology Impressions Chest X-Ray 11/13/23 11:31 IMPRESSION: Asymmetric left basilar airspace disease. Laboratory Results WBC 6.51 10^3/uL (3.29-11.43) 11/13/23 11:42 RBC 4.78 10^6/uL (3.85-5.65) 11/13/23 11:42 Hgb 14.00 g/dL (11.27-16.99) 11/13/23 11:42 Hct 43.3 % (37-53) 11/13/23 11:42 MCV 90.6 fl (82-101) 11/13/23 11:42 MCH 29.3 pg (27-33) 11/13/23 11:42 MCHC 32.3 g/dL (30-55) 11/13/23 11:42 RDW 12.6 % (12.1-15.1) 11/13/23 11:42 Plt Count 171 10^3/cmm (157-399) 11/13/23 11:42 MPV 12.7 fL (7.4-10.4) H 11/13/23 11:42 Neut % (Auto) 64.3 % 11/13/23 11:42 Lymph % (Auto) 23.0 % 11/13/23 11:42 [place] % (Auto) 8.8 % 11/13/23 11:42 Eos % (Auto) 3.1 % 11/13/23 11:42 Baso % (Auto) 0.6 % 11/13/23 11:42 Neut # (Auto) 4.19 10^3/uL (1.8-7.7) 11/13/23 11:42 Lymph # (Auto) 1.5 10^3/uL (0.8-4.8) 11/13/23 11:42 [place] # (Auto) 0.6 10^3/uL (0.2-0.9) 11/13/23 11:42 Eos # (Auto) 0.2 10^3/uL (0.0-0.8) 11/13/23 11:42 Baso # (Auto) 0.0 10^3/uL (0.0-0.1) 11/13/23 11:42 Nucleated RBC % (auto) 0 % 11/13/23 11:42 Nucleated RBCs # 0.0 /100WBC 11/13/23 11:42 Sodium 139 mmol/L (136-145) 11/13/23 11:42 Potassium 4.2 mmol/L (3.5-5.1) 11/13/23 11:42 Chloride 102 mmol/L (98-107) 11/13/23 11:42 Carbon Dioxide 26 mmol/L (22-29) 11/13/23 11:42 Anion Gap 15.2 (5-19) 11/13/23 11:42 BUN 17 mg/dL (8-23) 11/13/23 11:42 Creatinine 0.9 mg/dL (0.7-1.2) 11/13/23 11:42 GFR Calculation Not Reportable 11/13/23 11:42 Glucose 125 mg/dL (65-115) H 11/13/23 11:42 Calculated Osmolality 291 mOsm/kg (285-295) 11/13/23 11:42 Calcium 9.3 mg/dL (8.5-10.5) 11/13/23 11:42 Total Bilirubin 0.4 mg/dL (0.15-1.2) 11/13/23 11:42 AST 13 U/L (0-40) 11/13/23 11:42 ALT 15 U/L (0-41) 11/13/23 11:42 Alkaline Phosphatase 84 U/L (40-130) 11/13/23 11:42 Troponin T Baseline 13 ng/L (0-15) 11/13/23 11:42 Troponin T 120 Minute 9.64 ng/L (0-15) 11/13/23 13:35 Delta Troponin T -3.36 ABS# (0-10) L 11/13/23 13:35 Total Protein 6.8 g/dL (6.6-8.7) 11/13/23 11:42 Albumin 4.4 g/dL (3.5-5.2) 11/13/23 11:42 Globulin 2.4 g/dL (1.3-4.6) 11/13/23 11:42 All radiology interpretation(s) finalized by discharge Discharge Plan Discharge Patient Disposition: Home Clinical Impression: Ataxia after head trauma Condition: Stable Prescriptions: New meclizine 25 mg tablet 25 mg PO QID PRN (Reason: dizziness) Qty: 20 0RF No Action cholecalciferol (vitamin D3) 125 mcg (5,000 unit) capsule 125 mcg PO DAILY budesonide-formoterol [Symbicort] 160-4.5 mcg/actuation HFA aerosol inhaler 2 puff inhalation BID Qty: 10.2 3RF Rx Instructions: UNDER 340B metformin 500 mg tablet 1,000 mg PO DAILY mecobalamin (vitamin B12) 5,000 mcg tablet,disintegrating 5,000 mcg PO DAILY albuterol sulfate [ProAir HFA] 90 mcg/actuation HFA aerosol inhaler 2 puff INHALATION Q4H PRN (Reason: Shortness Of Breath) Qty: 8.5 3RF montelukast 10 mg tablet 10 mg PO DAILY lisinopril 20 mg tablet 20 mg PO BID metoprolol succinate 100 mg tablet extended release 24 hr 100 mg PO DAILY fluticasone propionate [Flonase Allergy Relief] 50 mcg/actuation spray,suspension 2 spray intranasal DAILY methenamine hippurate 1 gram tablet 1 g PO DAILY Rx Instructions: 1 pill daily with 1 g vitamin C each dose pantoprazole 40 mg Tablet,Delayed Release (Dr/Ec) 40 mg PO DAILY ascorbic acid (vitamin C) [Vitamin C] 1,000 mg Tablet 1,000 mg PO DAILY venlafaxine 75 mg capsule,extended release 24hr 75 mg PO DAILY Rx Instructions: TAKES WITH 150MG TO =225MG venlafaxine 150 mg capsule,extended release 24hr 150 mg PO DAILY Rx Instructions: TAKES WITH 75MG TO =225MG chlorthalidone 25 mg tablet 25 mg PO DAILY amlodipine 10 mg tablet 10 mg PO DAILY carbamazepine 100 mg tablet,chewable 50 mg PO DAILY hydralazine 25 mg tablet 25 mg PO BID PRN (Reason: Systolic >200 or diastolic >110) Qty: 20 0RF atorvastatin 40 mg Tablet 40 mg PO DAILY magnesium oxide 420 mg Tablet 420 mg PO DAILY zinc acetate 50 mg (zinc) Capsule 50 mg PO DAILY cetirizine [Zyrtec] 10 mg Tablet 10 mg PO DAILY tamsulosin 0.4 mg capsule 0.8 mg PO DAILY finasteride 5 mg tablet 5 mg PO DAILY Discharge Orders: Discharge ED (Routine); Ordered 11/13/23 Ordered By: Bayron Tucker Referrals: Naz Fisher MD [Primary Care Provider] - Micky Hu MD [Physician] - (November 17 7:30 AM at the medical office building for neurology consultation.) Discharge Diet: Usual diet Discharge Activity: Increase activity as tolerated Patient Instructions: Opioid Safety, Pain Management Activity Restrictions/Additional Instructions: Thank you for choosing [facility] for your healthcare needs today. It is very important that you follow up as instructed or that you return to the Emergency Department should you have concerns or if your condition changes or worsens in any way. You were seen today with ataxia. (The difficulty with balance and gait). There are no signs at this time of an acute stroke. Previous head CT and CTA of the head were normal. Would recommend that you complete the cardiac workup that has previously been scheduled. Reviewed your case with Dr. Hu our on-call neurologist. He recommends the MRI of the head with and without contrast as well as MRI of the inner ear. Will make arrangements for these. He also would like to see you in his office on November 17 at 7:30 AM in the medical office building. If your symptoms change or worsen return to the emergency room. Coding Level of Care Code ED Em Physician for Katya Craft
[2023-11-13 12:18] LABS: Anion Gap 15.2 (5-19); Potassium 4.2 mmol/L (3.5-5.1)
[2023-11-13 12:32] VITALS: BP 174/96; PULSE 62; RESP 19; O2SAT 90
--- NOTE | 2023-11-13 13:31 | ECG_ITS ---
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 Measurements Intervals [place] Rate: 62 P: 54 NV: 157 QRS: 19 QRSD: 107 T: 36 QT: 428 QTc: 437 Interpretive Statements SINUS RHYTHM WITH OCCASIONAL VENTRICULAR PREMATURE COMPLEXES Compared to ECG 11/13/2023 11:17:07 Ventricular premature complex(es) now present Sinus arrhythmia no longer present Electronically Signed On 11-13-2023 16:14:58 CDT by Julius Angel M.D. [id number]
[2023-11-13 13:36] VITALS: PULSE 68; O2SAT 92
--- NOTE | 2023-11-13 13:47 | PC.PHAR ---
[facility]ED [facility] FOR MED LIST W/O RESULTS. SPOKE WITH PT AND SPOUSE ABOUT PREVIOUS LIST FROM LAST ENCOUNTER IN ER. ALL MEDICATIONS ARE THE SAME EXCEPT AMLODIPINE 5 MG CHANGED TO 10 MG DAILY. CHANGE WAS MADE.
[2023-11-13 14:02] VITALS: BP 158/91; PULSE 63; RESP 17; O2SAT 97
[2023-11-13 14:07] LABS: Troponin 5 2HR 9.64 ng/L (0-15)
[2023-11-13 14:12] LABS: Troponin 5 2HR Delta -3.36 ABS# (0-10)
[2023-11-13 14:54] VITALS: BP 158/91; PULSE 63; RESP 17; O2SAT 97
== END 2023-11-13 14:55 | disposition home or self-care (01) ==
PROVIDERS: Emergency Provider Family Medicine; PCP Family Medicine
DX: R27.0 Ataxia, unspecified (principal); Z79.84 Long term (current) use of oral hypoglycemic drugs; S07 Crushing injury of head; X58.XXXS Exposure to other specified factors, sequela; E11.9 Type 2 diabetes mellitus without complications; I10 Essential (primary) hypertension; Z86.73 Personal history of transient ischemic attack (TIA), and cerebral infarction without residual deficits; Z87.891 Personal history of nicotine dependence
CPT/HCPCS: 36415; 71045; 80053; 84484; 85025; 93005; 99285

== ENCOUNTER 2023-11-18 06:00 | Outpatient (CLI) | payer OTHER, SELFPAY | END 2023-11-18 06:01 | disposition home or self-care (01) | LOC: RAD 02-11 10:14 | PROVIDERS: PCP Family Medicine; Visit Provider Psychiatry & Neurology Neurology | DX: I10 Essential (primary) hypertension (principal); R26.89 Other abnormalities of gait and mobility; L60.0 Ingrowing nail; N39.0 Urinary tract infection, site not specified | CPT/HCPCS: 36415; 82306; 82607; 82746; 83090; 83735; 83921; 84155; 84165; 84439; 84443; 84481; 86334; 86592; 86617; 86780 ==

== ENCOUNTER → 2023-11-18 07:22 | Outpatient (BNVA) | payer OTHER, SELFPAY | PROVIDERS: PCP Family Medicine; Visit Provider Psychiatry & Neurology Neurology | DX: S09.90XA Unspecified injury of head, initial encounter (principal); Y99.9 Unspecified external cause status; R27.0 Ataxia, unspecified; R29.2 Abnormal reflex; I10 Essential (primary) hypertension; G62.9 Polyneuropathy, unspecified; R20.0 Anesthesia of skin; M48.00 Spinal stenosis, site unspecified; L60.0 Ingrowing nail; N39.0 Urinary tract infection, site not specified; R68.89 Other general symptoms and signs; M54.2 Cervicalgia; M54.9 Dorsalgia, unspecified | CPT/HCPCS: 99203 ==

== ENCOUNTER → 2023-11-25 14:54 | Outpatient (CLI) | payer OTHER, SELFPAY ==
--- NOTE | 2023-11-25 15:15 | MR_ITS ---
WS: [id number] MRI LUMBAR SPINE WITH CONTRAST TECHNIQUE: Sagittal T1, T2 and STIR imaging. Axial T1 and T2 imaging. Post gadolinium imaging was obt ained. CLINICAL INFORMATION: M48.00 - Spinal stenosis, site unspecified COMPARISON: None. FINDINGS: Mild lumbar curve. No acute compression. No high-grade central canal stenosis. L1-L2: Mild facet arthropathy. Spinal canal and foramen are patent. L2-L3: No significant disc bulging. Tiny LEFT foraminal protrusion with mild LEFT foraminal narrowing . RIGHT foramen is patent. Moderate facet arthropathy. L3-L4: Mild annular bulging. Moderate facet arthropathy. Spinal canal and foramen are patent. L4-L5: Mild annular bulging. Moderate facet arthropathy. Tiny bilateral foraminal protrusions with mi ld LEFT greater than RIGHT foraminal narrowing. L5-S1: Mild annular bulging. Moderate facet arthropathy. Small RIGHT facet effusion. Mild RIGHT jacey inal narrowing. Visualized pelvic bony structures: Normal. Paravertebral soft tissues: Normal. Slightly ectatic distal abdominal aorta measuring 2.1 x 1.9 cm. MR/MR lumbar spine wo/w con [id number] IMPRESSION: 1. Mild lumbar curve. No acute compression. 2. No significant central canal stenosis. 3. Small LEFT foraminal protrusion L2-3 with mild LEFT foraminal narrowing and slight impingement on the exiting LEFT L2 nerve root. 4. Mild LEFT greater than RIGHT L4-5 foraminal narrowing. 5. Mild RIGHT L5-S1 foraminal narrowing. 6. Moderate facet arthropathy L3-L5. 7. Mild RIGHT L5-S1 facet synovitis 8. Slightly ectatic abdominal aorta measuring 2.1 x 1.9 cm
[2023-11-25] MEDS: gadobenate dimeglumine 20 mL vial IV (15:38)
== END | disposition home or self-care (01) ==
LOC: RAD 14:53
PROVIDERS: PCP Family Medicine; Visit Provider Psychiatry & Neurology Neurology
DX: I10 Essential (primary) hypertension (principal); R26.89 Other abnormalities of gait and mobility; M47.896 Other spondylosis, lumbar region; M47.898 Other spondylosis, sacral and sacrococcygeal region; I77.811 Abdominal aortic ectasia
CPT/HCPCS: 72158; A9577

== ENCOUNTER 2023-11-28 08:51 | Outpatient (CLI) | payer OTHER, SELFPAY ==
--- NOTE | 2023-11-28 09:30 | MR_ITS ---
WS: [id number] MR CERVICAL SPINE WO/W COMPARISON: None. HISTORY: I10 - Essential (primary) hypertension TECHNIQUE: Sagittal T1, T2 and T2 inversion recovery; axial T2, T2 gradient and fiesta. Post gadolini um imaging with fat saturation technique. FINDINGS: Slight straightening of the normal cervical lordosis with moderate spondylitic changes. Dis c osteophyte complexes worse at C4-C5 and C5-C6. Cord signal is normal. No abnormal gadolinium enhanc ement. C2-3: Mild facet arthropathy.Foramen are patent. C3-4: Moderate facet arthropathy. Mild bilateral bony foraminal narrowing. C4-5: Disc osteophyte complex with mild central canal stenosis. Slight indentation of the cervical co rd. Moderate facet arthropathy. Moderate LEFT greater than RIGHT bony foraminal narrowing. Uncoverteb ral joint hypertrophy. C5-6: Disc osteophyte complex with endplate ridging. Mild central canal stenosis. Uncovertebral joint hypertrophy. Moderate RIGHT greater than LEFT bony foraminal narrowing. Moderate facet arthropathy. C6-7: Mild disc bulging with osteophytic ridging. Spinal canal is patent. Moderate LEFT greater than RIGHT bony foraminal narrowing. Moderate facet arthropathy. C7-T1: Mild disc osteophytic ridging. Mild LEFT and no significant RIGHT foraminal narrowing. Spinal canal is patent. MR/MR cervical spine wo/w [id number] IMPRESSION: 1. Mild spondylitic changes cervical spine with disc osteophyte complexes wors e at C4-C5 and C5-C6. 2. Mild central canal stenosis C4-C5 and C5-C6 with slight contact of the cerv ical cord. Cord signal is normal. 3. Moderate bony foraminal narrowing worse at LEFT greater than RIGHT C4-5, RI GHT greater than LEFT C5-C6, and LEFT greater than RIGHT C6-7 4. No abnormal gadolinium enhancement.
[2023-11-28] MEDS: gadobenate dimeglumine 20 mL vial IV (10:08)
--- NOTE | 2023-11-28 10:15 | MR_ITS ---
WS: [id number] MRI HEAD WITH CONTRAST TECHNIQUE: Sagittal T1, T2 axial, T2 axial FLAIR, axial susceptibility weighted imaging, axial diffus ion weighted images, and coronal T2 images were obtained. Pre and post-T1 axial and post T1 coronal i mages. ADC and FSPGR images. CLINICAL INFORMATION: I10 - Essential (primary) hypertension COMPARISON: CT 11/02/2023 and MRI 2009 FINDINGS: No evidence of restricted diffusion to suggest acute ischemia. Ventricular system and basal cisterns are patent. Chronic infarct in the RIGHT MCA territory with enc ephalomalacia and gliosis in the RIGHT posterior frontal parietal and superior temporal lobes. This i s unchanged since the prior CT. This is unchanged since 2020. Normal posterior fossa. Normal vascular flow voids at the skull base. No extra-axial fluid collection s. No mass of mass or mass effect. Paranasal sinuses and mastoid air cells are well aerated. Normal posterior nasopharynx. Moderate small vessel changes with moderate parenchymal volume loss. No hemosiderin on the susceptibly weighted images. Normal optic chiasm and pituitary infundibulum. Mild symmetric atrophy temporal lobes and hippocampal formations. No abnormal gadolinium enhancement. Normal optic chiasm and pituitary infundibulum. Normal dural veno us sinuses. MR/MR head wo/w con [id number] IMPRESSION: 1. No evidence of restricted diffusion to suggest acute ischemia. 2. Moderate small vessel changes with moderate parenchymal volume loss. 3. 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 4. No hemosiderin on susceptibility-weighted images. 5. No abnormal gadolinium enhancement.
== END 2023-11-28 08:52 | disposition home or self-care (01) ==
LOC: RAD 08:51
PROVIDERS: PCP Family Medicine; Visit Provider Psychiatry & Neurology Neurology
DX: I10 Essential (primary) hypertension (principal); R26.89 Other abnormalities of gait and mobility; M48.00 Spinal stenosis, site unspecified; I63.89 Other cerebral infarction; G93.89 Other specified disorders of brain; G31.89 Other specified degenerative diseases of nervous system; M25.78 Osteophyte, vertebrae; M47.812 Spondylosis without myelopathy or radiculopathy, cervical region; M48.02 Spinal stenosis, cervical region; M51.85 Other intervertebral disc disorders, thoracolumbar region; M48.05 Spinal stenosis, thoracolumbar region
CPT/HCPCS: 70553; 72156; A9577

== ENCOUNTER 2023-12-01 14:29 | Outpatient (CLI) | payer OTHER, SELFPAY ==
--- NOTE | 2023-12-01 14:50 | USCV_ITS ---
Mario Simon Age: 78 Gender: M : 1945 Exam Date: 12/01/2023 15:02 Ordering Phys: Naz Fisher MD Technologist: CT [place]am [place] [facility] [place] Indication: dizziness, cerebral infarct BP: / HR: Rhythm: Sinus Technical Quality: Adequate MEASUREMENTS (Male / Female) Normal Values FINDINGS Left Ventricle Normal left ventricular size and systolic function, EF 60%.no regional wall motion abnormalities. Grade I/IV diastolic dysfunction (abnormal relaxation filling pattern), normal to mildly elevated filling pressures. Right Ventricle The right ventricle is normal in size and function. Right Atrium The right atrium is normal in size. Left Atrium The left atrium is normal in size. Mitral Valve No gross abnormalities noted Aortic Valve Trace aortic valve regurgitation. Thickened noncoronary cusp of the aortic valve Tricuspid Valve Trace tricuspid valve regurgitation. Pulmonic Valve No gross abnormalities noted Pericardium Normal pericardium without effusion. Aorta Normal ascending aorta dimension. IVC Normal inferior vena cava. CONCLUSIONS Normal left ventricular size and systolic function, EF 60%.no regional wall motion abnormalities. Grade I/IV diastolic dysfunction (abnormal relaxation filling pattern), normal to mildly elevated filling pressures. Trace aortic valve regurgitation. Thickened noncoronary cusp of the aortic valve. Trace tricuspid valve regurgitation. Estimated pulmonary artery peak systolic pressure possibly within normal There is no pericardial effusion. There are no intracardiac masses. Compared to the study from 09/26/2020, there may not be a significant change Dr Soy Brown MD [facility] (Electronically Signed) Final Date: 01 December 2023 23:43 S
== END 2023-12-01 14:30 | disposition home or self-care (01) ==
LOC: RAD 14:30
PROVIDERS: PCP Family Medicine; Visit Provider Family Medicine
DX: I35.8 Other nonrheumatic aortic valve disorders (principal)
CPT/HCPCS: 93306

== ENCOUNTER 2023-12-24 08:27 | Oncology outpatient (recurring) (ONCR) | payer OTHER, SELFPAY ==
--- NOTE | 2023-12-24 10:15 | XRR_ITS ---
PROCEDURE INFORMATION: Exam: XR Osseous Survey; Complete Axial And Appendicular Skeleton Exam date and time: 12/24/2023 11:09 AM Age: 78 years old Clinical indication: Condition or disease; Condition/disease: Monoclonal gammopathy; Prior surgery; Surgery date: 6+ months; Surgery type: Two bowel obstructions, gb, skull/facial bones, t/l compression FX, right third digit. Patient HX: Abnormal blood test TECHNIQUE: Imaging protocol: Radiological examination. Complete osseous survey. Axial and appendicular skeleton. COMPARISON: CR XR chest 1V portable [id number] 11/13/2023 11:49 AM FINDINGS: Bones/joints: Unremarkable. No fracture. Joints are unremarkable. No suspicious lytic or blastic lesions. Soft tissues: Unremarkable. XR/XR bone survey* [id number] IMPRESSION: No bony lesions noted
[2023-12-24 10:26] LABS: Basophils % 0.5 %; Eosinophils # 0.3 10^3/uL (0.0-0.8); Eosinophils % 4.7 %; Hematocrit 40.2 % (37-53); Lymphocytes # 1.7 10^3/uL (0.8-4.8); Lymphocytes % 27.7 %; Mean Corpuscular HGB Conc 33.3 g/dL (30-55); Mean Corpuscular Hemoglobin 29.5 pg (27-33); Mean Corpuscular Volume 88.4 fl (82-101); Mean Platelet Volume 12.1 fL (7.4-10.4); Monocytes # 0.6 10^3/uL (0.2-0.9); Monocytes % 9.1 %; Neutrophils # 3.46 10^3/uL (1.8-7.7); Neutrophils % 57.5 %; Nucleated Red Blood Cells % 0 %; Platelet Count 163 10^3/cmm (157-399); Red Blood Count 4.55 10^6/uL (3.85-5.65); Red Cell Distribution Width 12.4 % (12.1-15.1); White Blood Count 6.02 10^3/uL (3.29-11.43)
[2023-12-24 10:35] LABS: Erythrocyte Sedimentation Rate 4 mm/hr (0-10)
[2023-12-24 10:48] LABS: Alanine Aminotransferase 26 U/L (0-41); Albumin Level 4.3 g/dL (3.5-5.2); Alkaline Phosphatase 83 U/L (40-130); Anion Gap 16.5 (5-19); Aspartate Amino Transferase 18 U/L (0-40); Blood Urea Nitrogen 16 mg/dL (8-23); Calcium 9.1 mg/dL (8.5-10.5); Carbon Dioxide 29 mmol/L (22-29); Chloride 96 mmol/L (98-107); Creatinine Clr Calc Pharmacy 65.5968; Globulin 2.6 g/dL (1.3-4.6); Glucose 108 mg/dL (65-115); Immunoglobulin IGA 153 mg/dL (70-400); Immunoglobulin IGG 849 mg/dL (700-1600); Immunoglobulin IGM 127 mg/dL (40-230); Osmolality Calculated 288 mOsm/kg (285-295); Potassium 3.5 mmol/L (3.5-5.1); Sodium 138 mmol/L (136-145); Total Bilirubin 0.3 mg/dL (0.15-1.2); Total Protein 6.9 g/dL (6.6-8.7)
[2023-12-24 10:57] LABS: LAB Peripheral Smear Sent for Review
[2023-12-24 11:39] LABS: Iron 128 ug/dL (59-158); Percent Saturation 53.5 % (20-50); Total Iron Binding Capacity 239 mcg/dl; Unsaturated Iron Binding 111 ug/dL (112-347)
[2023-12-25 13:20] LABS: PROTEIN, TOTAL 6.4 g/dL (6.1-8.1)
[2023-12-25 13:38] LABS: KAPPA LIGHT CHAIN, FREE, SERUM 17.7 mg/L (3.3-19.4); KAPPA/LAMBDA LIGHT CHAINS FREE 0.98 (0.26-1.65)
[2023-12-25 15:16] LABS: ABNORMAL PROTEIN BAND 1 0.2 g/dL (NONE DETECTED); ALPHA 1 GLOBULIN 0.2 g/dL (0.2-0.3); ALPHA 2 GLOBULIN 0.7 g/dL (0.5-0.9); BETA 1 GLOBULIN 0.4 g/dL (0.4-0.6); BETA 2 GLOBULIN 0.4 g/dL (0.2-0.5); GAMMA GLOBULIN 0.7 g/dL (0.8-1.7)
== END 2024-01-07 23:59 | disposition home or self-care (01) ==
PROVIDERS: PCP Family Medicine; Visit Provider Internal Medicine Medical Oncology
DX: D47.2 Monoclonal gammopathy (principal); R53.83 Other fatigue
CPT/HCPCS: 36415; 77075; 80053; 82784; 83540; 83550; 83883; 84155; 84165; 85025; 85651; 86140; 99205

== ENCOUNTER 2023-12-26 10:29 | Outpatient (CLI) | payer OTHER, SELFPAY ==
[2023-12-28 11:30] LABS: CREATININE, 24 HOUR URINE 1.25 g/24 h (0.50-2.15); PROTEIN, TOTAL, 24 HR UR 88 mg/24 h (<150); Protein/Creatinine Ratio 70 mg/g creat (<100)
[2023-12-29 10:46] LABS: Copper Level 89 mcg/dL (70-175)
== END 2023-12-26 10:30 | disposition home or self-care (01) ==
LOC: LAB 10:31
PROVIDERS: Psychiatry & Neurology Neurology; PCP Family Medicine; Visit Provider Internal Medicine Medical Oncology
DX: I10 Essential (primary) hypertension (principal); R26.89 Other abnormalities of gait and mobility; D47.2 Monoclonal gammopathy; R53.83 Other fatigue
CPT/HCPCS: 36415; 82525; 84156; 84166

== ENCOUNTER 2024-01-12 07:42 | Outpatient (CLI) | payer OTHER, SELFPAY ==
--- NOTE | 2024-01-12 08:01 | NMCV_ITS ---
NM rossana perf SPECT r/s* [id number] Mario Simon Age: 78 Gender: M : 1945 Exam Date: 01/12/2024 08:28 Ordering Phys: Naz Fisher MD Technologist: CARLOS Joseph Exam Location: [facility] Indications: HTN STRESS TEST Please see separate stress test report in [facility] for full findings IMAGE PROTOCOL Rest/Stress 1 Lexiscan Day Radiopharmaceutical Dose (mCi) Administration Site Administered by Rest: Tc-99m 11.0 IV CARLOS Joseph Sestamibi Stress:Tc-99m 10.7 IV CARLOS Joseph Sestamibi Rest: 12-Jan-2024 60 Discovery 630 Stress: 12-Jan-2024 30 Discovery 630 0.4mg Lexiscan. Images obtained in supine and prone position. SPECT RESULTS Technical Quality: Good Raw Data Analysis: Normal Image Corrections: No attenuation or motion correction applied Summed Stress Score: 2 Summed Rest Score: 2 Summed Difference Score: 0 PERFUSION FINDINGS There is a small in size, fixed perfusion defect seen in the apical lateral wall. This is consistent with small sized area of prior infarct seen in left circumflex artery territory. No evidence of ischemia. FUNCTIONAL RESULTS (calculated via Gated SPECT) Stress Image LV EF (%): 63 Stress EDV (mL):126 TID: 1.07 Stress ESV (mL):46 FUNCTIONAL FINDINGS: There is normal left ventricular systolic function. IMPRESSIONS 1. Abnormal myocardial perfusion imaging with small sized area of prior infarct seen in left circumflex artery with no significant ischemia seen. 2. LV systolic function is normal Julius Angel MD (Electronically Signed) Final Date: 13 January 2024 17:48 S
--- NOTE | 2024-01-12 08:01 | ECG_ITS ---
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
[2024-01-12 08:03] VITALS: BMI 29.5
[2024-01-12] MEDS: regadenoson 0.4 Mg/5 ml Syringe IVP (09:15)
[2024-01-12 09:42] VITALS: BP 133/60; PULSE 70
== END 2024-01-12 07:43 | disposition home or self-care (01) ==
LOC: CDL 07:43
PROVIDERS: PCP Family Medicine; Visit Provider Family Medicine
DX: I11.9 Hypertensive heart disease without heart failure (principal)
CPT/HCPCS: 36415; 78452; 93017; 96374; A9500; J2785

== ENCOUNTER → 2024-01-20 11:48 | Outpatient (BNVA) | payer OTHER, SELFPAY | PROVIDERS: PCP Family Medicine; Visit Provider Psychiatry & Neurology Neurology | DX: R20.0 Anesthesia of skin (principal); M79.603 Pain in arm, unspecified | CPT/HCPCS: 95885; 95913 ==

== ENCOUNTER → 2024-01-22 10:45 | Outpatient (BNVA) | payer OTHER, SELFPAY | PROVIDERS: PCP Family Medicine; Visit Provider Psychiatry & Neurology Neurology | DX: R55 Syncope and collapse (principal) | CPT/HCPCS: 95816; 95819 ==

== ENCOUNTER → 2024-01-28 12:44 | Outpatient (BNVA) | payer OTHER, SELFPAY | PROVIDERS: PCP Family Medicine; Visit Provider Psychiatry & Neurology Neurology | DX: Z86.73 Personal history of transient ischemic attack (TIA), and cerebral infarction without residual deficits (principal); R55 Syncope and collapse; R29.2 Abnormal reflex; R68.89 Other general symptoms and signs; M47.812 Spondylosis without myelopathy or radiculopathy, cervical region; M51.36 Other intervertebral disc degeneration, lumbar region; R42 Dizziness and giddiness; G56.03 Carpal tunnel syndrome, bilateral upper limbs; G56.23 Lesion of ulnar nerve, bilateral upper limbs | CPT/HCPCS: 99212 ==

== ENCOUNTER 2024-02-03 20:00 | Outpatient (CLI) | payer OTHER, SELFPAY | END 2024-02-03 20:01 | disposition home or self-care (01) | LOC: SLEEP 02-04 04:31 | PROVIDERS: PCP Family Medicine; Visit Provider Family Medicine | DX: G47.33 Obstructive sleep apnea (adult) (pediatric) (principal) | CPT/HCPCS: 95811 ==

== ENCOUNTER 2024-04-09 13:44 | Outpatient (RCR) | payer OTHER, SELFPAY | END 2024-05-08 23:59 | disposition home or self-care (01) | LOC: SPT 13:44 | PROVIDERS: Visit Provider Family Medicine | DX: H81.20 Vestibular neuronitis, unspecified ear (principal); I95.1 Orthostatic hypotension | CPT/HCPCS: 95992; 97112; 97161 ==

== ENCOUNTER → 2024-05-04 12:57 | Outpatient (BNVA) | payer OTHER, SELFPAY | PROVIDERS: Visit Provider Nurse Practitioner Family | DX: L23.9 Allergic contact dermatitis, unspecified cause (principal); L57.8 Other skin changes due to chronic exposure to nonionizing radiation; Z85.828 Personal history of other malignant neoplasm of skin; L82.0 Inflamed seborrheic keratosis; L29.89 Other pruritus; L57.0 Actinic keratosis | CPT/HCPCS: 17000; 17110; 99204 ==

== ENCOUNTER → 2024-06-03 09:13 | Outpatient (BNVA) | payer OTHER, SELFPAY | PROVIDERS: Visit Provider Nurse Practitioner Family | DX: L23.9 Allergic contact dermatitis, unspecified cause (principal); L57.8 Other skin changes due to chronic exposure to nonionizing radiation; D18.01 Hemangioma of skin and subcutaneous tissue; L81.4 Other melanin hyperpigmentation; L82.1 Other seborrheic keratosis; Z85.828 Personal history of other malignant neoplasm of skin | CPT/HCPCS: 99213 ==

== ENCOUNTER 2024-07-08 14:52 | Oncology outpatient (recurring) (ONCR) | payer OTHER, SELFPAY ==
[2024-07-06 13:17] LABS: Basophils % 0.4 %; Eosinophils # 0.1 10^3/uL (0.0-0.8); Eosinophils % 1.3 %; Hematocrit 41.8 % (37-53); Lymphocytes # 1.3 10^3/uL (0.8-4.8); Lymphocytes % 18.1 %; Mean Corpuscular HGB Conc 33.3 g/dL (30-55); Mean Corpuscular Hemoglobin 29.7 pg (27-33); Mean Corpuscular Volume 89.3 fl (82-101); Mean Platelet Volume 12.3 fL (7.4-10.4); Monocytes # 0.5 10^3/uL (0.2-0.9); Monocytes % 6.8 %; Neutrophils # 5.21 10^3/uL (1.8-7.7); Neutrophils % 73.3 %; Nucleated Red Blood Cells % 0 %; Platelet Count 186 10^3/cmm (157-399); Red Blood Count 4.68 10^6/uL (3.85-5.65); Red Cell Distribution Width 13.3 % (12.1-15.1); White Blood Count 7.11 10^3/uL (3.29-11.43)
[2024-07-06 14:08] LABS: Alanine Aminotransferase 22 U/L (0-41); Albumin Level 4.4 g/dL (3.5-5.2); Alkaline Phosphatase 80 U/L (40-130); Anion Gap 15.8 (5-19); Aspartate Amino Transferase 16 U/L (0-40); Blood Urea Nitrogen 20 mg/dL (8-23); Calcium 9.5 mg/dL (8.5-10.5); Carbon Dioxide 24 mmol/L (22-29); Chloride 103 mmol/L (98-107); Ferritin 233 ng/mL (30-400); Globulin 2.9 g/dL (1.3-4.6); Glucose 151 mg/dL (65-115); Iron 81 ug/dL (59-158); Osmolality Calculated 294 mOsm/kg (285-295); Percent Saturation 30.9 % (20-50); Potassium 3.8 mmol/L (3.5-5.1); Sodium 139 mmol/L (136-145); Total Bilirubin 0.6 mg/dL (0.15-1.2); Total Iron Binding Capacity 262 mcg/dl; Total Protein 7.3 g/dL (6.6-8.7); Unsaturated Iron Binding 181 ug/dL (112-347)
[2024-07-06 14:49] LABS: Immunoglobulin IGA 158 mg/dL (70-400); Immunoglobulin IGG 877 mg/dL (700-1600); Immunoglobulin IGM 144 mg/dL (40-230)
[2024-07-07 20:59] LABS: ABNORMAL PROTEIN BAND 1 0.2 g/dL (NONE DETECTED); ALBUMIN 4.2 g/dL (3.8-4.8); ALPHA 1 GLOBULIN 0.3 g/dL (0.2-0.3); ALPHA 2 GLOBULIN 0.9 g/dL (0.5-0.9); BETA 1 GLOBULIN 0.4 g/dL (0.4-0.6); BETA 2 GLOBULIN 0.5 g/dL (0.2-0.5); GAMMA GLOBULIN 0.8 g/dL (0.8-1.7)
[2024-07-08 11:35] LABS: KAPPA LIGHT CHAIN, FREE, SERUM 16.5 mg/L (3.3-19.4); KAPPA/LAMBDA LIGHT CHAINS FREE 1.03 (0.26-1.65)
== END 2024-07-09 23:59 | disposition home or self-care (01) ==
PROVIDERS: Visit Provider Internal Medicine Medical Oncology
DX: Z53.9 Procedure and treatment not carried out, unspecified reason (principal)
CPT/HCPCS: 36415; 80053; 82728; 82784; 83540; 83550; 83883; 84155; 84165; 85025; 86334; 99214

== ENCOUNTER 2024-07-14 11:43 | Outpatient (CLI) | payer OTHER, SELFPAY ==
[2024-07-15 11:20] LABS: CREATININE, 24 HOUR URINE 1.43 g/24 h (0.50-2.15); PROTEIN, TOTAL, 24 HR UR 119 mg/24 h (<150); Protein/Creatinine Ratio 0.083 (<0.100); Protein/Creatinine Ratio 83 mg/g creat (<100)
[2024-07-19 15:36] LABS: ALBUMIN 100 %; ALPHA-1-GLOBULINS 0 %; ALPHA-2-GLOBULINS 0 %; BETA GLOBULINS 0 %; GAMMA GLOBULINS 0 %
== END 2024-07-14 11:44 | disposition home or self-care (01) ==
LOC: LAB 11:44
PROVIDERS: PCP Family Medicine; Visit Provider Nurse Practitioner Family
DX: D47.2 Monoclonal gammopathy (principal)
CPT/HCPCS: 84156; 84166

== ENCOUNTER → 2024-07-26 14:41 | Outpatient (BNVA) | payer OTHER, SELFPAY | PROVIDERS: PCP Family Medicine; Visit Provider Psychiatry & Neurology Neurology | DX: Z86.73 Personal history of transient ischemic attack (TIA), and cerebral infarction without residual deficits (principal); R55 Syncope and collapse; R29.2 Abnormal reflex; R68.89 Other general symptoms and signs; M54.2 Cervicalgia; M54.9 Dorsalgia, unspecified; M47.812 Spondylosis without myelopathy or radiculopathy, cervical region; R42 Dizziness and giddiness; G56.21 Lesion of ulnar nerve, right upper limb; G56.22 Lesion of ulnar nerve, left upper limb; G56.03 Carpal tunnel syndrome, bilateral upper limbs | CPT/HCPCS: 99212 ==

== ENCOUNTER → 2024-12-02 13:30 | Outpatient (BNVA) | payer OTHER, SELFPAY | PROVIDERS: PCP Family Medicine; Visit Provider Nurse Practitioner Family | DX: L23.9 Allergic contact dermatitis, unspecified cause (principal); L57.8 Other skin changes due to chronic exposure to nonionizing radiation; D18.01 Hemangioma of skin and subcutaneous tissue; L81.4 Other melanin hyperpigmentation; L82.1 Other seborrheic keratosis; Z85.828 Personal history of other malignant neoplasm of skin; L57.0 Actinic keratosis | CPT/HCPCS: 17000; 99214 ==

== ENCOUNTER 2025-01-06 12:41 | Oncology outpatient (recurring) (ONCR) | payer OTHER, SELFPAY ==
[2024-12-30 14:18] LABS: Hematocrit 38.4 % (37-53); Hemoglobin 13.00 g/dL (11.27-16.99); Mean Corpuscular HGB Conc 33.9 g/dL (30-55); Mean Corpuscular Hemoglobin 29.8 pg (27-33); Mean Corpuscular Volume 88.1 fl (82-101); Nucleated Red Blood Cells % 0 %; Platelet Count 155 10^3/cmm (157-399); Red Blood Count 4.36 10^6/uL (3.85-5.65); White Blood Count 5.61 10^3/uL (3.29-11.43)
[2024-12-30 14:40] LABS: Alanine Aminotransferase 14 U/L (0-41); Albumin Level 4.0 g/dL (3.5-5.2); Alkaline Phosphatase 84 U/L (40-130); Anion Gap 15.1 (5-19); Aspartate Amino Transferase 13 U/L (0-40); Blood Urea Nitrogen 16 mg/dL (8-23); Calcium 8.8 mg/dL (8.5-10.5); Carbon Dioxide 24 mmol/L (22-29); Chloride 106 mmol/L (98-107); Globulin 2.7 g/dL (1.3-4.6); Glucose 147 mg/dL (65-115); Osmolality Calculated 296 mOsm/kg (285-295); Potassium 4.1 mmol/L (3.5-5.1); Sodium 141 mmol/L (136-145); Total Protein 6.7 g/dL (6.6-8.7)
[2024-12-31 08:09] LABS: PROTEIN, TOTAL 6.4 g/dL (6.1-8.1)
[2025-01-03 11:13] LABS: KAPPA LIGHT CHAIN, FREE, SERUM 14.6 mg/L (3.3-19.4); KAPPA/LAMBDA LIGHT CHAINS FREE 0.91 (0.26-1.65); LAMBDA LIGHT CHAIN, FREE, SERU 16.1 mg/L (5.7-26.3)
[2025-01-03 12:58] LABS: ALPHA 1 GLOBULIN 0.3 g/dL (0.2-0.3); ALPHA 2 GLOBULIN 0.7 g/dL (0.5-0.9); BETA 1 GLOBULIN 0.4 g/dL (0.4-0.6); BETA 2 GLOBULIN 0.4 g/dL (0.2-0.5)
[2025-01-06 16:44] LABS: Protein/Creatinine Ratio 0.125 (<0.100); Protein/Creatinine Ratio 125 mg/g creat (<100)
[2025-01-07 08:05] LABS: ALPHA-1-GLOBULINS 0 %; ALPHA-2-GLOBULINS 0 %; BETA GLOBULINS 0 %; GAMMA GLOBULINS 0 %
== END 2025-01-06 23:59 | disposition home or self-care (01) ==
PROVIDERS: Nurse Practitioner Family; PCP Family Medicine; Visit Provider Internal Medicine
DX: D47.2 Monoclonal gammopathy (principal); R03.0 Elevated blood-pressure reading, without diagnosis of hypertension; Z87.891 Personal history of nicotine dependence
CPT/HCPCS: 36415; 80053; 82784; 83883; 84155; 84156; 84165; 84166; 85025; 99214

== ENCOUNTER → 2025-01-19 14:54 | Outpatient (BNVA) | payer OTHER, SELFPAY | PROVIDERS: PCP Family Medicine; Visit Provider Nurse Practitioner Family | DX: L23.9 Allergic contact dermatitis, unspecified cause (principal); L57.8 Other skin changes due to chronic exposure to nonionizing radiation; D18.01 Hemangioma of skin and subcutaneous tissue; L81.4 Other melanin hyperpigmentation; Z85.828 Personal history of other malignant neoplasm of skin | CPT/HCPCS: 99213 ==